=== PATIENT | female | born 1995 | race Caucasian/White ===

== ENCOUNTER 2020-07-20 15:40 | Outpatient (CLI) | payer OTHER, SELFPAY ==
[2020-07-20 16:20] VITALS: BMI 35.5
[2020-07-20 16:21] VITALS: TEMP 37.5
[2020-07-20 16:22] VITALS: BP 118/72; PULSE 87
[2020-07-20] MEDS: 0.9% Normal Saline Single 100 ML IV.SOLN. INTRA-UTER (18:55)
--- NOTE | 2020-07-20 19:03 | PCM.HP.OB ---
HPI - General General Date of Admission: 07/20/20 Chief Complaint: Ulloa ripening of the cervix. HPI Narrative VALERIO NUNEZ, is a 24 F who presents for Ulloa cervical ripening for elective induction of labor. She is a 1 para 0 who presents with EDC of 07/20/2020 at 40 weeks 0 days. [facility] Home Medications vit,[id number] [Prenatabs FA] 1 tab PO DAILY 07/20/20 [History Last Taken 07/20/20] Allergy/AdvReac Type Severity Reaction Status Date / Time No Known Allergies Allergy Verified 07/20/20 16:21 NST FHR Rate Baby A Baseline: 150 Variability:: Moderate Accelerations:: 15 x 15 Decelerations:: None NST Reactive:: Yes FHR Category:: Category I Uterine Activity:: Irregular contractions. I was present in the room for audible accelerations that were difficult to trace because the fetus was so active. ROS Constitutional Constitutional: Denies fatigue, fever(s) or malaise Eyes Eyes: Denies change in vision ENT HEENT: Denies dizziness or headache(s) Cardiovascular Cardiovascular: Denies chest pain, dyspnea or lightheadedness Respiratory/Chest Respiratory/Chest: Denies cough or dyspnea Gastrointestinal Gastrointestinal: Denies change in bowel habits Genitourinary Genitourinary: Denies burning urination or genital lesions Integumentary Integumentary: Denies rash Neurologic Neurologic: Denies confusion, dizziness, headache(s), numbness or weakness Vital Signs Vital Signs Vital Signs: 07/20/20 16:21 07/20/20 16:22 Temperature 99.5 F H Temperature Source Temporal Pulse Rate 87 Blood Pressure 118/72 BP Systolic 118 BP Diastolic 72 Physical Exam Const alert and no apparent distress General Appearance: cooperative HEENT normocephalic Resp normal respiratory effort Cardio regular rate GI soft to palpation GI Narrative: gravid, nontender, appropriate for gestational age Extremity no calf tenderness General Extremity: edema Skin no wounds Rashes: No rashes noted Psych activity/motor behavior normal Assessment & Plan (1) 40 weeks gestation of : (2) Supervision of normal intrauterine in primigravida: (3) Elective induction of labor planned: PLAN: Risk benefits and alternatives to elective induction of labor with Ulloa ripening as an outpatient were discussed with patient, questions were answered to her satisfaction she desires to proceed. Estimated weight is less than 4500 g clinically and pelvis clinically adequate to expect vaginal delivery. Will return in the morning or as needed for Pitocin and/or artificial rupture of membranes if needed for induction.
[2020-07-20 19:13] VITALS: TEMP 36.6
[2020-07-20 19:14] VITALS: BP 117/77; PULSE 76; O2SAT 97
== END 2020-07-20 20:20 | disposition home or self-care (01) ==
LOC: WPOUT 16:02 → WP 16:03
PROVIDERS: Referring Provider Obstetrics & Gynecology; Visit Provider Obstetrics & Gynecology
DX: Z34.03 Encounter for supervision of normal first pregnancy, third trimester (principal)
CPT/HCPCS: 59025; 59050; 99218; G0378

== ENCOUNTER 2020-07-21 06:40 | Inpatient (IN) | payer OTHER, SELFPAY ==
[2020-07-20 16:20] VITALS: BMI 35.5
[2020-07-21] VITALS (50 sets, daily range): BP systolic 90–186; BP diastolic 48–138; PULSE 65–107; TEMP 36.4–37.3; O2SAT 94–100; BMI 35.3
--- NOTE | 2020-07-21 07:19 | HP.PCM.OB_ITS ---
HPI - General General Date of Admission: 07/21/20 Chief Complaint: Induction of labor HPI Narrative 24-year-old 1 para 0 presents at 40 weeks 1 day for induction of labor. She has had some contractions since she left last night. She had a Ulloa catheter placed yesterday for cervical ripening. She denies any gross vaginal bleeding or leaking of fluid. PFSH Home Medications vit,[id number] [Prenatabs FA] 1 tab PO DAILY 07/20/20 [History Last Taken 07/20/20] Allergy/AdvReac Type Severity Reaction Status Date / Time No Known Allergies Allergy Verified 07/20/20 16:21 ROS Constitutional Constitutional: Denies fatigue, fever(s) or malaise Eyes Eyes: Denies change in vision ENT HEENT: Denies dizziness or headache(s) Cardiovascular Cardiovascular: Denies chest pain, dyspnea or lightheadedness Respiratory/Chest Respiratory/Chest: Denies cough or dyspnea Gastrointestinal Gastrointestinal: Denies change in bowel habits Genitourinary Genitourinary: Denies burning urination or genital lesions Integumentary Integumentary: Denies rash Neurologic Neurologic: Denies confusion, dizziness, headache(s), numbness or weakness Physical Exam Const alert and no apparent distress General Appearance: cooperative HEENT normocephalic Resp normal respiratory effort Cardio regular rate GI soft to palpation GI Narrative: gravid, nontender, appropriate for gestational age Extremity no calf tenderness General Extremity: edema Skin no wounds Rashes: No rashes noted Psych activity/motor behavior normal Assessment & Plan (1) Elective induction of labor planned: PLAN: Risks, benefits, and alternatives to induction labor him discussed w ith the patient, her questions were answered to her satisfaction and consent was signed. She desires to proceed. Plan Pitocin and artificial rupture membranes induction today. Had Ulloa catheter placed last night that came out at home. Estimated weight is less than 4500 g clinically and pelvis is clinically adequate to expect vaginal delivery. Routine pain control measures if needed. (2) Supervision of normal intrauterine in primigravida: (3) 40 weeks gestation of :
[2020-07-21 07:59] LABS: Absolute Lymphocyte Count 2.11 X10^3/uL (0.83-4.51); Absolute Neutrophil Count 12.1 X10^3/uL (2.0-7.7); Basophil# 0.04 X10^3/uL; Basophil% 0.3 % (0-1); Eosinophil# 0.01 X10^3/uL; Eosinophils% 0.1 % (0-5); Hematocrit 45.8 % (37-47); Hemoglobin 15.6 g/dL (12.0-15.0); Lymphocyte # 2.11 X10^3/ul (0.83-4.51); Lymphocyte % 13.8 % (19-41); Mean Corp Hgb Conc 34.1 g/dL (32-36); Mean Corpuscular Hgb 32.4 pg (27.0-32.0); Mean Corpuscular Volume 95.2 fL (81-99); Mean Platelet Vol. 10.8 fl (6.2-12.0); Monocyte# 0.93 X10^3/uL; Monocyte% 6.1 % (0-10); NRBC Flagged by Analyzer 0 % (0-5); Neutrophil # 12.09 X10^3/uL (2.7-7.7); Platelet Count 188 K/mm3 (150-450); RBC Distribution Width CV 13.1 % (11.6-14.6); RBC Distribution Width SD 46.5 fl (35.1-43.9); Red Blood Count 4.81 M/mm3 (4.2-5.4); White Blood Count 15.3 K/mm3 (4.4-11.0)
[2020-07-21] MEDS: Oxytocin 30 units/NS 500 ml 30 UNITS/500 ML IV.SOLN IV (08:00)
[2020-07-21] MEDS: Lactated Ringers 1,000 ML 50 ML IV (08:03)
[2020-07-21] MEDS: Lactated Ringers 500 ML 999 ML IV ×3 (09:38→15:06)
[2020-07-21] MEDS: fentaNYL-bupivacaine (epidural) 100 ML BAG EPIDURAL ×2 (10:24→15:07)
[2020-07-21] MEDS: Lactated Ringers 1,000 ML 200 ML IV (15:36)
[2020-07-21] MEDS: Oxytocin 30 units/NS 500 ml 30 UNITS/500 ML IV.SOLN 334 UNITS IV (17:54)
[2020-07-21] MEDS: Methylergonovine 0.2 MG/ML Ampul IM (18:04)
--- NOTE | 2020-07-21 18:19 | EX.PCM.OBRPT ---
Assessment & Plan (1) Vacuum extractor delivery, delivered: (2) Outcome of delivery, single liveborn: (3) Arrest of descent, delivered, current hospitalization: Maternal Data Information Final DONNELL: 07/23/20 Final DONNELL Source: LMP Gestational age: 40 2/7 weeks Vaginal Delivery Maternal Presentation Maternal Presentation: Elective Induction Type of Induction: Pitocin, Ulloa Bulb and Amniotomy Operative Information Date of Procedure: 07/21/20 Pre-Operative Diagnosis: labor, arrest of descent Post-Operative Diagnosis: same Surgery / Procedure Performed: Vacuum Assisted Vaginal Delivery (low) Type of Anesthesia: Epidural Special Medications: none Drain: Ulloa to straight drain Estimated Blood Loss: 500 Findings Description of Procedure: I arrived to assess the patient. She been complete for over 4 hours, pushing for over 3 hours. Position was ROT, the vertex was on the pelvic floor. There is moderate caput. Ulloa was in place. Epidural was adequate. I discussed with patient risk benefits and alternatives of various options. They elected for trial of vacuum-assisted delivery. The vacuum was placed on the flexion point. I pulled with 1 contraction and the head restituted to GAGAN. It began to crown. The vacuum was removed with no pop offs. The pressure had been 550 mmHg. With maternal pushing efforts only, a vigorous [female] infant was delivered [GAGAN] over a first-degree vaginal laceration. The remainder the infant was delivered with maternal pushing and gentle traction only in less than 15 seconds. The Pitocin infusion was initiated for active management of the third stage. The cord was clamped and cut [after 1 minute]. The infant was attended to by the waiting nursing staff. The placenta was delivered spontaneously and intact. The cervix and vagina were intact. Vaginal laceration was repaired with 3-0 Vicryl Rapide suture in a running standard fashion was hemostatic. Sponge and needle counts were correct. A vaginal sweep was completed by me. Delivery time 1748 Presentation: GAGAN Amniotic Fluid Description: Lightly stained meconium Placental Delivery Description: Spontaneous Placenta Disposition: [facility] Cord Vessel Description: 3 Vessels Cord Entanglement: None Cord Gases: VBG (unable to get ABG b/c of very short, thin cord) Infant A Gender: Female (gema) (1 minute): 9 (5 minute): 9 Delayed Cord Clamping: Yes Post Vaginal Delivery Medications Given After Delivery: IV Pitocin and IM Methergin (x1 to prevent methergine) Episiotomy Description: None Laceration: 1st degree (vaginal) Complication Complications: None
[2020-07-21] MEDS: Ibuprofen 600 MG Tablet PO (19:08)
--- NOTE | 2020-07-21 22:40 | NURSING ---
report received from antionette GTZ. this RN to assume care of pt at this time.
[2020-07-22 00:22] VITALS: BP 107/58; PULSE 88; RESP 14; TEMP 36.4
[2020-07-22 04:45] VITALS: BP 98/59; PULSE 82; RESP 14; TEMP 36.2
[2020-07-22 05:08] LABS: Hematocrit 42.1 % (37-47); Hemoglobin 14.3 g/dL (12.0-15.0); Mean Corpuscular Hgb 32.4 pg (27.0-32.0); Mean Corpuscular Volume 95.5 fL (81-99); Mean Platelet Vol. 10.1 fl (6.2-12.0); Platelet Count 149 K/mm3 (150-450); RBC Distribution Width SD 45.5 fl (35.1-43.9); Red Blood Count 4.41 M/mm3 (4.2-5.4)
--- NOTE | 2020-07-22 08:31 | PCM.PN.BLA ---
Progress Note Pain well controlled. Average lochia. Physical Exam Const alert and no apparent distress Narrative: Fundus firm, below umbilicus. Vulva w signif edema but improved. Assessment & Plan Assessment/Plan (1) Vacuum extractor delivery, delivered: PLAN: day #1 status post vacuum-assisted vaginal delivery. Vulvar edema is improving. Leave Ulloa catheter in until noon and then will do a voiding trial. is bottlefeeding and doing well. Likely discharge home tomorrow. (2) Outcome of delivery, single liveborn:
[2020-07-22] MEDS: Ibuprofen 600 MG Tablet PO (09:20)
[2020-07-22 09:30] VITALS: BP 115/67; PULSE 92; RESP 16; TEMP 36.3
[2020-07-22 12:00] VITALS: BP 110/64; PULSE 103; RESP 16; TEMP 36.5
[2020-07-22] MEDS: Acetaminophen 500 MG Tablet 1000 MG PO (15:10)
[2020-07-22 16:23] VITALS: BP 106/67; PULSE 85; RESP 16; TEMP 36; O2SAT 98
[2020-07-22 21:28] VITALS: BP 108/59; PULSE 78; RESP 16; TEMP 36.1; O2SAT 95
[2020-07-22] MEDS: Senna/Docusate Sodium 1 Tablet PO (21:35)
[2020-07-23] MEDS: Ibuprofen 600 MG Tablet PO (02:30)
[2020-07-23 02:31] VITALS: BP 109/72; PULSE 82; RESP 18; TEMP 36.4; O2SAT 95
--- NOTE | 2020-07-23 08:01 | PCM.PN.BLA ---
Progress Note Pain well controlled. Average lochia. No complaints today. Physical Exam Const alert and no apparent distress Narrative: Fundus firm, below umbilicus. Assessment & Plan Assessment/Plan (1) Vacuum extractor delivery, delivered: PLAN: day #2 status post vacuum-assisted vaginal delivery. Patient are doing well. is bottlefeeding. Ready for discharge home today. Routine instructions and follow-up. (2) Outcome of delivery, single liveborn:
--- NOTE | 2020-07-23 08:03 | DS.PCM_ITS ---
Providers Date of Admission: 07/21/20 Date of Discharge: 07/23/20 Primary Care Physician: Dania Primary Care Phys Reason For Visit: VAGINAL DELIVERY Diagnosis Discharge Diagnosis (1) Vacuum extractor delivery, delivered: Status: Acute Code(s): O66.5 - Attempted application of vacuum extractor and forceps (2) Outcome of delivery, single liveborn: Status: Acute Code(s): Z37.0 - Single live Medications at Discharge Home Medications vit,[id number] [Prenatabs FA] 1 tab PO DAILY 07/20/20 Hospital Course Summary of Care Provided Hospital Course: Patient arrived to labor and delivery on 07/19/2020 for outpatient Ulloa ripening. The Ulloa was placed. Patient was discharged home. She arrived on the morning of 07/20/2020 for Pitocin and AROM induction. Labor progressed to complete and pushing where she had arrest of descent. A vacuum extraction was performed on 07/21/2020. course was unremarkable. By day #2, the patient was ready for discharge with routine instructio ns. The was bottlefeeding and doing well. ABG / Lab / Microbiology Data Result Diagrams: 07/22/20 04:55 D/C Instructions Discharge Diet: No restrictions Discharge Activity: May not drive while taking narcotic pain medications., May Shower and May Take a Tub Bath (in 4-6 weeks) May resume sexual activity in: 6 weeks Call your doctor if your incision/area has: Continuous Slow Oozing, Sudden Increased Bleeding, Foul Smelling Discharge and Swelling at the incision site Call your doctor if you observe: Fever of 101 or Higher and Inability to urinate Please Follow Up With: Yessenia Ware MD When: Follow up with our office in 1-2 and 6 weeks or as needed. [phone] Meaningful Use Info Meaningful Use Diagnoses (Choose all that apply): None applicable Discharge Plan Admission Admit Date/Time: 07/21/20 06:40 Primary Reason for Your Visit: Vacuum-assisted vaginal delivery Attending Provider: Yessenia Ware Primary Care Provider: Christopher Moore,Dania Primary Discharge Orders/Prescriptions Prescriptions: No Action Prenatabs FA 29-1 mg Tablet 1 tab PO DAILY RF: 0 Referrals / Follow Up: Care Physician,No Primary [Primary Care Provider] - Disposition Disposition (needs filled in before D/C Order can be placed): Home, self care
[2020-07-23 08:45] VITALS: BP 110/76; PULSE 78; RESP 16; TEMP 36.6; O2SAT 97
[2020-07-23] MEDS: Senna/Docusate Sodium 1 Tablet PO (11:11)
== END 2020-07-23 11:46 | disposition home or self-care (01) | DRG 807 ==
PROVIDERS: Admitting Provider Obstetrics & Gynecology; Visit Provider Obstetrics & Gynecology
DX: O62.1 Secondary uterine inertia (principal); Z37.0 Single live birth; Z3A.40 40 weeks gestation of pregnancy; O70.0 First degree perineal laceration during delivery; O77.0 Labor and delivery complicated by meconium in amniotic fluid
CPT/HCPCS: 59025; 59050; 85025; 85027; 86850; 86900; 86901; 99218; J7120; G0378

== ENCOUNTER 2024-10-21 07:37 | Inpatient (IN) | payer OTHER, SELFPAY ==
[2024-10-21] VITALS (75 sets, daily range): BP systolic 93–144; BP diastolic 58–99; PULSE 68–118; RESP 16–17; TEMP 36.4–36.9; O2SAT 94–99; BMI 1200.0; BMI 20250815.0; BMI 42.9; BMI 1950.0
--- OUTSIDE RECORDS SUMMARY | 2024-10-21 07:23 | XMS RPT_ITS | CCD ---
Author Organization [facility] Care Team Providers Care Sas Administrator Name Role Phone DUSTIN BASSETT Unavailable Unavailable REFERRED, SELF Unavailable Unavailable DUSTIN BASSETT Unavailable Unavailable Tizzano, Abad P Unavailable Unavailable Sophia, Christy L Unavailable Unavailable Tizzano, Abad P Unavailable Unavailable Sophia, Christy L Unavailable Unavailable Sophia, Christy L Unavailable Unavailable Sophia, Christy L Unavailable Unavailable Tizzano, Abad P Unavailable Unavailable Sophia, Christy L Unavailable Unavailable Tizzano, Abad P Unavailable Unavailable Sophia, Christy L Unavailable Unavailable Tizzano, Abad P Unavailable Unavailable Tizzano, Abad P Unavailable Unavailable Sophia, Christy L Unavailable Unavailable Frank Marinelli DO Primary Care Provider Frank Marinelli DO Primary Care Provider Frank Marinelli DO Primary Care Provider Frank Marinelli DO Primary Care Provider Farah AGRI BUSINESS AGENT.Fabi POWELL Unavailable Jolene AGRI BUSINESS AGENT.Rosana POWELL Unavailable Farah AGRI BUSINESS AGENT.Faib POWELL Unavailable Dolly AGRI BUSINESS AGENT.Leny POWELL Unavailable FRANK MARINELLI Primary Care Unavailable VALENTINA DEL ROSARIO Attending Unavailable MAX AGUSTIN Attending Unavailable FRANK MARINELLI Primary Care Unavailable SELF Referring Unavailable MAX AGUSTIN Referring Unavailable FRANK MARINELLI Primary Care Unavailable FRANK MARINELLI Primary Care Unavailable LEONIE PONCE Attending Unavail able MARINELLI, FRANK L Primary Care Unavailable MARINELLI, FRANK L Primary Care Unavailable YUMIKO CARVER Attending Unavailable MARINELLI, FRANK L Primary Care Unavailable LISET CASTAÑEDA Attending Unavailable MARINELLI, FRANK L Primary Care Unavailable PLOTTS, KELSI Referring Unavailable MARINELLI, FRANK L Primary Care Unavailable PLOTTS, KELSI Referring Unavailable BRANDAN PUGA Attending Unavailable MARINELLI, FRANK L Primary Care Unavailable PLOTTS, KELSI Referring Unavailable MARINELLI, FRANK L Primary Care Unavailable PLOTTS, KELSI Attending Unavailable MARINELLI, FRANK L Primary Care Unavailable PLOTTS, KELSI Referring Unavailable MARINELLI, FRANK L Primary Care Unavailable PLOTTS, KELSI Attending Unavailable PLOTTS, KELSI Referring Unavailable MARINELLI, FRANK L Primary Care Unavailable MARINELLI, FRANK L Primary Care Unavailable LISET CASTAÑEDA Attending Unavailable MARINELLI, FRANK L Primary Care Unavailable PLOTTS, KELSI Attending Unavailable MARINELLI, FRANK L Primary Care Unavailable BRANDAN PUGA Attending Unavailable MARINELLI, FRANK L Primary Care Unavailable MARINELLI, FRANK L Primary Care Unavailable PLOTCARMINA, KELSI Attending Unavailable MARINELLI, FRANK L Primary Care Unavailable SELF Referring Unavailable LISET CASTAÑEDA Attending Unavailable LEONIE PONCE Attending Unavail able MARINELLI, FRANK L Primary Care Unavailable MAX AGUSTIN Referring Unavailable MARINELLI, FRANK L Primary Care Unavailable MARINELLI, FRANK L Primary Care Unavailable LISET CASTAÑEDA Attending Unavailable MARINELLI, FRANK L Primary Care Unavailable MARINELLI, FRANK L Primary Care Unavailable PLOTTS, KELSI Referring Unavailable Medications Current Medications Medication Drug Class(es) Dates Sig (Normalized) Sig (Original) amoxicillin 875 mg / clavulanate 125 mg oral tablet (2 sources) Penicillin-class Antibacterial Start: 02-06-2023 End: 02-16-2023 take 1 tablet by mouth twice daily amoxicillin-clav ulanate potassium (AUGMENTIN) 875-125 mg per tablet Indications: Bacterial sinusitis Take 1 tablet by mouth two times a day for 10 days. 20 tablet 0 02/06/2023 02/16/2023 Active Comment on above: Take 1 tablet by silvia th two times a day for 10 days. aspirin 81 mg delayed release oral tablet (20 sources) Platelet Aggregation Inhibitor, Nonsteroidal Anti-inflammatory Drug Start: 03-18-2024 take 1 tablet by mouth once daily aspirin, enteric coated (ECOTRIN LOW STRENGTH) 81 mg EC tablet Indications: with uncertain dates in first trimester (HCC) Take 1 tablet by mouth once daily. 90 tablet 3 03/18/2024 Active cetirizine hydrochloride 10 mg oral tablet (1 source) Histamine-1 Receptor Antagonist Start: 12-31-2023 End: 01-30-2024 take 1 tablet by mouth once daily cetirizine (ZYRTEC) 10 mg tablet Take 1 tablet by mouth once daily. 30 tablet 12/31/2023 01/30/2024 Active FLUoxetine 10 mg oral tablet (19 sources) Serotonin Reuptake Inhibitor Start: 09-08-2022 End: 12-07-2022 take 1 tablet by mouth once daily FLUoxetine 10 mg tablet Take 1 tablet by mouth once daily. 90 tablet 1 09/08/2022 12/07/2022 Active Start: 05-23-2022 End: 09-08-2022 take 0.5 tablet by mouth once daily in the morning, then take 1 tablet by mouth once daily in the morning FLUOXETINE 10 mg tablet TAKE ONE-HALF TABLET BY MOUTH ONCE DAILY IN THE MORNING FOR 4 DAYS, THEN INCREASE TO ONE TABLET DAILY IN THE MORNING 90 tablet 0 05/23/2022 09/08/2022 Discontinued Start: 12-09-2021 End: 05-23-2022 take 1 tablet by mouth once daily, then take 0.5 tablet by mouth once daily in the morning, then take 1 tablet by mouth once daily in the morning FLUoxetine 10 mg tablet Take 1 tablet by mouth once daily. Take 0.5 tablet once a day in AM x 4 days then increase to 1 tablet PO daily in AM 90 tablet 1 12/09/2021 05/23/2022 Discontinued Start: 06-04-2021 End: 12-07-2021 take 1 tablet by mouth once daily, then take 0.5 tablet by mouth once daily in the morning, then take 1 tablet by mouth once daily in the morning FLUoxetine 10 mg tablet Take 1 tablet by mouth once daily. Take 0.5 tablet once a day in AM x 4 days then increase to 1 tablet PO daily in AM 90 tablet 1 06/04/2021 12/07/2021 Discontinued Comment on above: Take 1 tablet by silvia th once daily. Take 0.5 tablet once a day in AM x 4 days then increase to 1 tablet PO daily in AM TAKE ONE-HALF TABLET BY MOUTH ONCE DAILY IN THE MORNING FOR 4 DAYS, THEN INCREASE TO ONE TABLET DAILY IN THE MORNING Take 1 tablet by silvia th once daily. methylPREDNISolone (1 source) Corticosteroid Start: 2023 End: 2023 methylPREDNISolone (MEDROL, MELANIE,) 4 mg Dose-Pack Follow dosing instructions, take with food. 21 tablet 12/31/2023 01/06/2024 Active phentermine hydrochloride 37.5 mg oral tablet (7 sources) Sympathomimetic Amine Anorectic Start: 2022 End: 2023 take 1 tablet by mouth once daily Phentermine HCl (ADIPEX-P) 37.5 mg tablet Indications: Obesity, Class II, BMI 35-39.9 Take 1 tablet by mouth once daily for 90 days. 30 tablet 2 07/03/2023 10/01/2023 Active Comment on above: Take 1 tablet by silvia th once daily for 90 days. Nybttexp-Pw-Oaj-Fe-FA tab (20 sources) Start: 2024 take 1 tablet by mouth once daily Ghdktgeq-Us-Mla-Fe-FA tab Take 1 tablet by mouth once daily. 90 tablet 3 03/18/2024 Active Completed/Discontinued Medications Medication Drug Class(es) Dates Sig (Normalized) Sig (Original) cholecalciferol 0.125 mg oral capsule (20 sources) Vitamin D Start: 06-12-2021 End: 03-18-2024 take 1 capsule by mouth once daily Cholecalciferol, Vitamin D3, 125 mcg (5,000 unit) cap Take 1 capsule by mouth once daily 180 capsule 05/23/2022 03/18/2024 Discontinued Comment on above: Take 1 capsule by mo [facility] once daily. Take 1 capsule by mo [facility] once daily Ethinyl Estradiol / Norethindrone (20 sources) Estrogen Start: 10-19-2023 End: 03-18-2024 take 1 tablet by mouth once daily, then take 1 tablet by mouth once daily Norethindrone Acet-Ethinyl Est (MICROGESTIN 03/28) 1-20 mg-mcg per tablet Indications: PCOS (polycystic ovarian syndrome) Take 1 tablet by mouth once daily. Take one active pill daily x 3 months 63 tablet 5 10/19/2023 03/18/2024 Discontinued Start: 10-19-2023 End: 10-18-2024 take 1 tablet by mouth once daily, then take 1 tablet by mouth once daily Norethindrone Acet-Ethinyl Est (MICROGESTIN 1/20) 1-20 mg-mcg per tablet Indications: PCOS (polycystic ovarian syndrome) Take 1 tablet by mouth once daily. Take one active pill daily x 3 months 63 tablet 5 10/19/2023 10/18/2024 Active Start: 10-13-2022 End: 10-19-2023 take 0.05 ug by mouth once Norethindrone Acet-Ethinyl Est (MICROGESTIN 1/20) 1-20 mg-mcg per tablet Indications: PCOS (polycystic ovarian syndrome) Take 1 tablet by mouth once daily. 21 tablet 11 10/13/2022 10/19/2023 Discontinued Start: 10-13-2022 take 0.05 ug by mouth once Nor ethindrone Acet-Ethinyl Est (MICROGESTIN 1/20) 1-20 mg-mcg per tablet Indications: PCOS (polycystic ovarian syndrome) Take 1 tablet by mouth once daily. 21 tablet 11 10/13/2022 Active Start: 10-11-2021 End: 10-13-2022 take 0.05 ug by mouth once Norethindrone Acet-Ethinyl Est (MICROGESTIN 1/20) 1-20 mg-mcg per tablet Indications: PCOS (polycystic ovarian syndrome) Take 1 tablet by mouth once daily. 21 tablet 11 10/11/2021 10/13/2022 Discontinued Start: 10-11-2021 take 0.05 ug by mouth once Nor ethindrone Acet-Ethinyl Est (MICROGESTIN 1/20) 1-20 mg-mcg per tablet Indications: PCOS (polycystic ovarian syndrome) Take 1 tablet by mouth once daily. 21 tablet 11 10/11/2021 Active Start: 10-09-2021 End: 10-11-2021 take 1 tablet by mouth once daily MICROGESTIN 1/20 1-20 mg-mcg per tablet Indications: PCOS (polycystic ovarian syndrome) Take 1 tablet by mouth once daily 21 tablet 3 10/09/2021 10/11/2021 Discontinued Start: 10-09-2021 take 1 tablet by silvia once daily MICROGESTIN 1/20 1-20 mg-mcg per tablet Indications: PCOS (polycystic ovarian syndrome) Take 1 tablet by mouth once daily 21 tablet 3 10/09/2021 Active Start: 08-14-2021 End: 10-09-2021 take 1 tablet by mouth once daily MICROGESTIN 1/20 1-20 mg-mcg per tablet Indications: PCOS (polycystic ovarian syndrome) Take 1 tablet by mouth once daily 21 tablet 1 08/14/2021 10/09/2021 Discontinued Start: 08-14-2021 take 1 tablet by silvia th once daily MICROGESTIN 1/20 1-20 mg-mcg per tablet Indications: PCOS (polycystic ovarian syndrome) Take 1 tablet by mouth once daily 21 tablet 1 08/14/2021 Active Start: 09-04-2020 End: 08-14-2021 take 0.05 ug by mouth once Norethindrone Acet-Ethinyl Est (MICROGESTIN 1/20) 1-20 mg-mcg per tablet Indications: PCOS (polycystic ovarian syndrome) Take 1 tablet by mouth once daily. 1 Package 11 09/04/2020 08/14/2021 Discontinued Start: 09-04-2020 take 0.05 ug by mouth once Nor ethindrone Acet-Ethinyl Est (MICROGESTIN 1/20) 1-20 mg-mcg per tablet Indications: PCOS (polycystic ovarian syndrome) Take 1 tablet by mouth once daily. 1 Package 11 09/04/2020 Active Comment on above: Take 1 tablet by silvia th once daily. Take 1 tablet by silvia th once daily PRENATE MINI, FERR ASP GLYCIN, 18-1-350 mg cap (15 sources) Start: 01-01-2021 End: 10-13-2022 take 1 capsule by mouth once daily PRENATE MINI, FERR ASP GLYCIN, 18-1-350 mg cap Take 1 capsule by mouth once daily 30 capsule 5 01/01/2021 10/13/2022 Discontinued Start: 01-01-2021 take 1 capsule by mo uth once daily PRENATE MINI, FERR ASP GLYCIN, 18-1-350 mg cap Take 1 capsule by mouth once daily 30 capsule 5 01/01/2021 Active Comment on above: Take 1 capsule by mo uth once daily Problems Active Problems Problem Classification Problem Date Documented Da te Episodic/Chronic Allergic reactions (1 source) Contact dermatitis; Translations: [Unspecified contact dermatitis, unspecified cause] 12-31-2023 Episodic Anxiety disorders (1 source) Feeling irritable; Translations: [Irritability and anger] Episodic Diabetes mellitus without complication (16 sources) Increased glucose level; Translations: [Other abnormal glucose] Onset: 08-12-2024 08-12-2024 Episodic Immunizations and screening for infectious disease (2 sources) Vaccination needed; Translations: [Encounter for immunization] Onset: 08-12-2024 08-12-2024 Episodic Nutritional deficiencies (20 sources) Vitamin D deficiency; Translations: [Vitamin D deficiency, unspecified] Onset: 07-05-2021 07-05-2021 Chronic Other complications of (20 sources) Maternal obesity complicating , childbirth and the puerperium, antepartum; Translations: [Obesity complicating , first trimester] Onset: 03-18-2024 03-18-2024 Chronic Other complications of (1 source) Obesity complicating , third trimester; Translations: [Other obesity affecting in third trimester (HCC)] Onset: 09-16-2024 Chronic Other complications of (1 source) Obesity complicating , second trimester; Translations: [Obesity affecting in second trimester, unspecified obesity type (HCC)] Onset: 06-17-2024 Chronic Other complications of (16 sources) High risk ; Translations: [Supervision of high risk , unspecified, first trimester] Onset: 03-18-2024 03-18-2024 Episodic Other complications of (4 sources) Excessive growth affecting management of mother; Translations: [Maternal care for excessive growth, third trimester, not applicable or unspecified] Onset: 10-07-2024 10-07-2024 Episodic Other complications of (1 source) Maternal care for excessive growth, third trimester, not applicable or unspecified; Translations: [Excessive growth affecting management of in third trimester, single or unspecified fetus (HCC)] Onset: 10-07-2024 Episodic Other complications of (1 source) Supervision of high risk , unspecified, third trimester; Translations: [Supervision of high risk in third trimester (HCC)] Onset: 09-16-2024 Episodic Other complications of (1 source) Supervision of high risk , unspecified, second trimester; Translations: [Supervision of high risk in second trimester (HCC)] Onset: 07-18-2024 Episodic Other endocrine disorders (6 sources) Polycystic ovary syndrome; Translations: [Polycystic ovarian syndrome] Chronic Other liver diseases (1 source) Increased vitamin B; Translations: [Abnormal levels of other serum enzymes] 11-24-2022 Episodic Other nutritional; endocrine; and metabolic disorders (3 sources) Obese class II; Translations: [Obesity, unspecified] 02-11-2023 Chronic Other screening for suspected conditions (not mental disorders or infectious disease) (9 sources) Patient encounter status; Translations: [Encounter for screening for lipoid disorders] Onset: 06-17-2024 Episodic Other skin disorders (1 source) Night sweats; Translations: [Generalized hyperhidrosis] Episodic Other skin disorders (1 source) Loss of hair; Translations: [Nonscarring hair loss, unspecified] Episodic Other skin disorders (1 source) Pigmented skin lesion ; Translations: [Disorder of pigmentation, unspecified] Episodic Other skin disorders (1 source) Eruption; Translations: [Rash and other nonspecific skin eruption] 12-31-2023 Episodic Other upper respiratory infections (1 source) Bacterial sinusitis; Translations: [Chronic sinusitis, unspecified] 02-06-2023 Chronic Polyhydramnios and other problems of amniotic cavity (17 sources) Polyhydramnios; Translations: [Polyhydramnios, unspecified trimester, not applicable or unspecified] Onset: 09-02-2024 09-02-2024 Episodic Residual codes; unclassified (1 source) Flushing; Translations: [Flushing] Episodic Residual codes; unclassified (1 source) Gestation period, 8 weeks; Translations: [8 weeks gestation of ] 03-18-2024 Episodic Residual codes; unclassified (1 source) Gestation period, 12 weeks; Translations: [12 weeks gestation of ] 04-19-2024 Episodic Residual codes; unclassified (1 source) Gestation period, 16 weeks; Translations: [16 weeks gestation of ] 05-13-2024 Episodic Residual codes; unclassified (2 sources) Gestation period, 21 weeks; Translations: [21 weeks gestation of ] 06-17-2024 Episodic Residual codes; unclassified (1 source) Gestation period, 25 weeks; Translations: [25 weeks gestation of ] 07-18-2024 Episodic Residual codes; unclassified (1 source) Gestation period, 29 weeks; Translations: [29 weeks gestation of ] 08-12-2024 Episodic Residual codes; unclassified (1 source) Gestation period, 31 weeks; Translations: [31 weeks gestation of ] 08-26-2024 Episodic Residual codes; unclassified (2 sources) Gestation period, 32 weeks; Translations: [32 weeks gestation of ] 09-02-2024 Episodic Residual codes; unclassified (1 source) Gestation period, 34 weeks; Translations: [34 weeks gestation of ] 09-16-2024 Episodic Residual codes; unclassified (1 source) Gestation period, 35 weeks; Translations: [35 weeks gestation of ] 09-23-2024 Episodic Residual codes; unclassified (1 source) Gestation period, 36 weeks; Translations: [36 weeks gestation of ] 09-30-2024 Episodic Residual codes; unclassified (1 source) Gestation period, 37 weeks; Translations: [37 weeks gestation of ] 10-07-2024 Episodic Residual codes; unclassified (1 source) 37 weeks gestation of ; Translations: [37 weeks gestation of (HCC)] Onset: 10-07-2024 Episodic Residual codes; unclassified (1 source) 36 weeks gestation of ; Translations: [36 weeks gestation of (HCC)] Onset: 09-30-2024 Episodic Residual codes; unclassified (1 source) 35 weeks gestation of ; Translations: [35 weeks gestation of (HCC)] Onset: 09-23-2024 Episodic Residual codes; unclassified (1 source) 34 weeks gestation of ; Translations: [34 weeks gestation of (HCC)] Onset: 09-16-2024 Episodic Residual codes; unclassified (1 source) 32 weeks gestation of ; Translations: [32 weeks gestation of (HCC)] Onset: 09-02-2024 Episodic Residual codes; unclassified (1 source) 31 weeks gestation of ; Translations: [31 weeks gestation of (HCC)] Onset: 08-26-2024 Episodic Residual codes; unclassified (1 source) 29 weeks gestation of ; Translations: [29 weeks gestation of (HCC)] Onset: 08-12-2024 Episodic Residual codes; unclassified (1 source) 25 weeks gestation of ; Translations: [25 weeks gestation of (HCC)] Onset: 07-18-2024 Episodic Residual codes; unclassified (1 source) Gestation period, 38 weeks; Translations: [38 weeks gestation of ] 10-19-2024 Episodic Unclassified (20 sources) [facility] - COMMON Onset: 03-18-2024 03-18-2024 Unclassified (20 sources) Education - [place] Onset: 03-18-2024 03-18-2024 Unclassified (1 source) H/O: previous delivery by vacuum extraction 08-12-2024 Unclassified (1 source) Other obesity affecting in third trimester ([facility]); Translations: [Other obesity affecting in third trimester ([facility])] Onset: 09-16-2024 Past or Other Problems Problem Classification Problem Date Documented Da te Episodic/Chronic Malaise and fatigue (20 sources) Fatigue; Translations: [Other fatigue] Onset: 07-05-2021 Episodic Miscellaneous mental health disorders (20 sources) Depressed mood; Translations: [Other symptoms and signs involving emotional state] Onset: 07-05-2021 Episodic Other complications of (20 sources) on oral contraceptive; Translations: [Supervision of other high risk pregnancies, unspecified trimester] Onset: 11-10-2019 Resolved: 08-01-2020 08-01-2020 Episodic Other complications of (20 sources) Vomiting of , unspecified; Translations: [Unspecified vomiting of , unspecified as to episode of care or not applicable] Onset: 03-18-2024 Resolved: 07-18-2024 03-18-2024 Episodic Other injuries and conditions due to external causes (20 sources) H/O: fracture; Translations: [Personal history of (healed) traumatic fracture] Onset: 11-10-2019 12-14-2019 Episodic Other and delivery including normal (20 sources) with uncertain dates; Translations: [Encounter for supervision of normal , unspecified, first trimester] Onset: 03-18-2024 Resolved: 08-12-2024 03-18-2024 Episodic Phlebitis; thrombophlebitis and thromboembolism (20 sources) H/O: thrombosis; Translations: [Personal history of other venous thrombosis and embolism] Onset: 11-10-2019 12-08-2019 Episodic Pulmonary heart disease (20 sources) H/O: pulmonary embolus; Translations: [Personal history of pulmonary embolism] Onset: 03-18-2024 03-18-2024 Episodic Residual codes; unclassified (20 sources) H/O: previous delivery by vacuum extraction; Translations: [Personal history of other complications of , childbirth and the puerperium] Onset: 03-18-2024 03-18-2024 Episodic Residual codes; unclassified (1 source) Personal history of other complications of , childbirth and the puerperium; Translations: [History of vacuum extraction assisted delivery] Onset: 03-18-2024 Episodic Residual codes; unclassified (1 source) 21 weeks gestation of ; Translations: [21 weeks gestation of (HCC)] Onset: 06-17-2024 Episodic Results Test Name Value Interpretation Reference Range Facil ity URINE OB DIP B/Oon 5 Glucose Ql (U) 1000 mg/dL Neg [facility] Protein.monoclonal (U) [Mass/Vol] Negative Neg mg/dL [facility] URINE OB DIP B/Oon 5 Glucose Ql (U) Negative Neg mg/dL [facility] Interpretation and review of laboratory results Normal [facility] Protein.monoclonal (U) [Mass/Vol] Negative Neg mg/dL [facility] Examination level ultrasound on 09-30-2024 [facility] Radiology Study observation (narrative) [facility] ROUTINE, GROUP B ST REPTOCOCCUS BY PCRon 09-30-2024 ROUTINE, GROUP B STREPTOCOCCUS BY PCR Not detected Normal [facility] [place] Comment on above: Performed By: #### G BPCR ####[facility] LABCLIA [id number] [place] [address] [place] URINE OB DIP B/Oon 5 Glucose Ql (U) 250 mg/dL Neg [facility] Interpretation and review of laboratory results Normal [facility] Protein.monoclonal (U) [Mass/Vol] Negative Neg mg/dL [facility] URINE OB DIP B/Oon 5 Glucose Ql (U) Negative Neg mg/dL [facility] Interpretation and review of laboratory results Normal [facility] Protein.monoclonal (U) [Mass/Vol] Negative Neg mg/dL [facility] Examination level ultrasound on 09-02-2024 [facility] Radiology Study observation (narrative) [facility] GLUCOSE GESTATIONAL, 1 HOURo n 08-13-2024 Glucose 1 Hr post Unsp challenge [Mass/Vol] 136 mg/dL Normal 74-179 [facility] [place] Comment on above: Order Comment: Speci kristel Type: BLOOD SPECIMENOrdering Facility: [facility] Address: [address] [place] [address] Result Comment: [facility] Congress of Obstetricians and Gynecologists ([place]) guidelines state gestational diabetes mellitus is present when 2 or more of the plasma glucose concentrations meet or exceed the following levels: fastin mg/dl, 1 hr: 180 mg/dl, 2 hr: 155 mg/dl, and 3 hr: 140 mg/dl. Performed By: #### G TGST1 ####[facility] LABCLIA [id number] [address] STATES OF [facility] GLUCOSE GESTATIONAL, 2 HOURo n 08-13-2024 Glucose 2 Hr post Unsp challenge [Mass/Vol] 128 mg/dL Normal 74-154 [facility] [place] Comment on above: Order Comment: Ijeoma humphries Type: BLOOD SPECIMENOrdering Facility: [facility] Address: [address] [place] [address] Result Comment: [facility] Congress of Obstetricians and Gynecologists ([place]) guidelines state gestational diabetes mellitus is present when 2 or more of the plasma glucose concentrations meet or exceed the following levels: fastin mg/dl, 1 hr: 180 mg/dl, 2 hr: 155 mg/dl, and 3 hr: 140 mg/dl. Performed By: #### G TGST2 ####[facility] LABCLIA [id number] [address] [place] GLUCOSE GESTATIONAL, 3 HOURo n 08-13-2024 Glucose 3 Hr post Unsp challenge [Mass/Vol] 126 mg/dL Normal 74-139 [facility] [place] Comment on above: Order Comment: Ijeoma humphries Type: BLOOD SPECIMENOrdering Facility: [facility] Address: [facility] [place] [address] Result Comment: [facility] Congress of Obstetricians and Gynecologists ([place]) guidelines state gestational diabetes mellitus is present when 2 or more of the plasma glucose concentrations meet or exceed the following levels: fastin mg/dl, 1 hr: 180 mg/dl, 2 hr: 155 mg/dl, and 3 hr: 140 mg/dl. Performed By: #### G TGST3 ####[facility] [id number] [place] [address] [place] GLUCOSE GESTATIONAL, FASTING on 08-13-2024 Glucose post fast [Mass/Vol] 78 mg/dL Normal 74-94 [facility] [place] Comment on above: Order Comment: Speci men Type: BLOOD SPECIMENOrdering Facility: [facility] Address: [address] [place] [address] Result Comment: [facility] Congress of Obstetricians and Gynecologists (Lowry/Coustan) guidelines state gestational diabetes mellitus is present when 2 or more of the plasma glucose concentrations meet or exceed the following levels: fastin mg/dl, 1 hr: 180 mg/dl, 2 hr: 155 mg/dl, and 3 hr: 140 mg/dl. Performed By: #### G TGSTF ####[facility] LABIA [id number] [place] [address] [place] CBC W Auto Differential pane l (Bld)on 08-12-2024 Basophils (Bld) [#/Vol] 0.03 10*3/uL Normal <0.11 [facility] Comment on above: Order Comment: Speci men Type: BLOOD SPECIMENOrdering Facility: [facility] Address: [address] [place] [address] Performed By: #### 5 7021-8 ####[facility]PITALALBERTO [id number] [place] [address] [place] Basophils/100 WBC (Bld) 0.3 % Normal [facility] Comment on above: Order Comment: Speci men Type: BLOOD SPECIMENOrdering Facility: [facility] Address: [address] [place] [address] Performed By: #### 5 7021-8 ####[facility] PANWBARBARALIA [id number] [place] [address] [place] Differential cell count method Nom (Bld) Auto Normal [facility] Comment on above: Order Comment: Speci men Type: BLOOD SPECIMENOrdering Facility: [facility] Address: [address] [place] [address] Performed By: #### 5 7021-8 ####[facility] LAMASGIANCARLOLIA [id number] [place] [address] [place] Eosinophils (Bld) [#/Vol] 0.10 10*3/uL Normal <0.46 [facility] Comment on above: Order Comment: Speci men Type: BLOOD SPECIMENOrdering Facility: [facility] Address: [address] [place] [address] Performed By: #### 5 7021-8 ####[facility]MANWBARBARALIA [id number] [place] [address] [place] Eosinophils/100 WBC (Bld) 0.9 % Normal [facility] Comment on above: Order Comment: Speci men Type: BLOOD SPECIMENOrdering Facility: [facility] Address: [address] [place] [address] Performed By: #### 5 7021-8 ####[facility] ALMASTOWNCLIA [id number] [place] [address] [place] Erythrocyte distribution width (RBC) [Ratio] 14.0 % Normal 11.5-15.0 [facility] Comment on above: Order Comment: Speci men Type: BLOOD SPECIMENOrdering Facility: [facility] Address: [address] [place] [address] Performed By: #### 5 7021-8 ####[facility] MILLALLINA HEALTH FARIBAULT MEDICAL CENTEREmma [id number] [place] [address] [place] Hematocrit (Bld) [Volume fraction] 39.8 % Normal 36.0-46.0 [facility] Comment on above: Order Comment: Speci men Type: BLOOD SPECIMENOrdering Facility: [facility] Address: [address] [place] [address] Performed By: #### 5 7021-8 ####[facility] [id number] [place] [address] [place] Hemoglobin (Bld) [Mass/Vol] 13.6 g/dL Normal 11.5-15.5 [facility] Comment on above: Order Comment: Speci men Type: BLOOD SPECIMENOrdering Facility: [facility] Address: [address] [place] [address] Performed By: #### 5 7021-8 ####[facility] [id number] [place] [address] [place] Immature granulocytes (Bld) [#/Vol] 0.12 10*3/uL High <0.10 [facility] Comment on above: Order Comment: Speci men Type: BLOOD SPECIMENOrdering Facility: [facility] Address: [address] [place] [address] Performed By: #### 5 7021-8 ####[facility] [id number] [place] [address] [place] Immature granulocytes/100 WBC (Bld) 1.1 % Normal [facility] Comment on above: Order Comment: Speci men Type: BLOOD SPECIMENOrdering Facility: [facility] Address: [address] [place] [address] Performed By: #### 5 7021-8 ####[facility] H[facility]PITALA [id number] [place] [address] [place] Lymphocytes (Bld) [#/Vol] 2.43 10*3/uL Normal 1.00-4.00 [facility] Comment on above: Order Comment: Speci men Type: BLOOD SPECIMENOrdering Facility: [facility] Address: [address] [place] [address] Performed By: #### 5 7021-8 ####[facility] [id number] [place] [address] [place] Lymphocytes/100 WBC (Bld) 22.5 % Normal [facility] Comment on above: Order Comment: Speci men Type: BLOOD SPECIMENOrdering Facility: [facility] Address: [address] [place] [address] Performed By: #### 5 7021-8 ####[facility]OSPITALNCLI [id number] [place] [address] [place] MCH (RBC) [Entitic mass] 31.8 pg Normal 26.0-34.0 [facility] Comment on above: Order Comment: Speci men Type: BLOOD SPECIMENOrdering Facility: [facility] Address: [address] [place] [address] Performed By: #### 5 7021-8 ####[facility] HOSPITALNCLI [id number] [place] [address] [place] MCHC (RBC) [Mass/Vol] 34.2 g/dL Normal 30.5-36.0 [facility] Comment on above: Order Comment: Speci men Type: BLOOD SPECIMENOrdering Facility: [facility] Address: [address] [place] [address] Performed By: #### 5 7021-8 ####[facility]OSPITALNCLI [id number] [place] [address] [place] MCV (RBC) [Entitic vol] 93.0 fL Normal 80.0-100.0 [facility] Comment on above: Order Comment: Speci men Type: BLOOD SPECIMENOrdering Facility: [facility] Address: [address] [place] [address] Performed By: #### 5 7021-8 ####[facility] PANWNCLIA [id number] [place] [address] [place] Monocytes (Bld) [#/Vol] 0.54 10*3/uL Normal <0.87 [facility] Comment on above: Order Comment: Speci men Type: BLOOD SPECIMENOrdering Facility: [facility] Address: [address] [place] [address] Performed By: #### 5 7021-8 ####[facility] MILLWBARBARALIA [id number] [place] [address] [place] Monocytes/100 WBC (Bld) 5.0 % Normal [facility] Comment on above: Order Comment: Speci men Type: BLOOD SPECIMENOrdering Facility: [facility] Address: [address] [place] [address] Performed By: #### 5 7021-8 ####[facility] ALMASFORT DRUMNCLIA [id number] [place] [address] [place] Neutrophils (Bld) [#/Vol] 7.57 10*3/uL High 1.45-7.50 [facility] Comment on above: Order Comment: Speci men Type: BLOOD SPECIMENOrdering Facility: [facility] Address: [address] [place] [address] Performed By: #### 5 7021-8 ####[facility] MILLTOWNCLIA [id number] [place] [address] [place] Neutrophils/100 WBC (Bld) 70.2 % Normal [facility] Comment on above: Order Comment: Speci men Type: BLOOD SPECIMENOrdering Facility: [facility] Address: [address] [place] [address] Performed By: #### 5 7021-8 ####[facility] HOSPITALA [id number] [place] [address] [place] Nucleated RBC (Bld) [#/Vol] 10*3/uL Normal <0.01 [facility] Comment on above: Order Comment: Speci men Type: BLOOD SPECIMENOrdering Facility: [facility] Address: [address] [place] [address] Performed By: #### 5 7021-8 ####[facility] [id number] [place] [address] [place] Nucleated RBC/100 WBC (Bld) [Ratio] 0.0 /100 WBC Normal [facility] Comment on above: Order Comment: Speci men Type: BLOOD SPECIMENOrdering Facility: [facility] Address: [address] [place] [address] Performed By: #### 5 7021-8 ####[facility] [id number] [place] [address] [place] Platelet mean volume (Bld) [Entitic vol] 9.8 fL Normal 9.0-12.7 [facility] Comment on above: Order Comment: Speci men Type: BLOOD SPECIMENOrdering Facility: [facility] Address: [address] [place] [address] Performed By: #### 5 7021-8 ####[facility] CENTERHILLARY [id number] [place] [address] [place] Platelets (Bld) [#/Vol] 179 10*3/uL Normal 150-400 [facility] Comment on above: Order Comment: Speci men Type: BLOOD SPECIMENOrdering Facility: [facility] Address: [address] [place] [address] Performed By: #### 5 7021-8 ####[facility] CENTERLIA [id number] [place] [address] [place] RBC (Bld) [#/Vol] 4.28 10*6/uL Normal 3.90-5.20 [facility] Comment on above: Order Comment: Speci men Type: BLOOD SPECIMENOrdering Facility: [facility] Address: [address] [place] [address] Performed By: #### 5 7021-8 ####[facility]ITAL[facility] [id number] [place] [address] [place] WBC (Bld) [#/Vol] 10.79 10*3/uL Normal 3.70-11.00 [facility] Comment on above: Order Comment: Speci men Type: BLOOD SPECIMENOrdering Facility: [facility] Address: [address] [place] [address] Performed By: #### 5 7021-8 ####[facility]ITAL[facility] [id number] [place] [address] [place] GESTATIONAL GLUCOSE SCREEN, 1-HOUR, 50 GRAM, NON-FASTINGon 08-12-2024 Glucose [Mass/Vol] 136 mg/dL High 74-134 [facility] Comment on above: Order Comment: Speci men Type: BLOOD SPECIMENOrdering Facility: [facility] Address: [address] [place] [address] Result Comment: [facility] Congress of Obstetricians and Gynecologists (Lowry/Penny) guidelines state a gestational diabetes mellitus positive screen is made, in women not previously diagnosed with overt diabetes, when the 1 hr plasma glucose level is equal to or above 140 mg/dL. [facility] recommends a 135 mg/dL cutoff. Performed By: #### G LTGST ####[facility] [id number] [place] [address] [place] Reagin and Treponema pallidu m IgG and IgM [Interp]on 08-12-2024 T. pallidum IgG+IgM IA Ql (S) Non-Reactive Normal Nonreactive [facility] Comment on above: Order Comment: Speci men Type: BLOOD SPECIMENOrdering Facility: [facility] Address: [address] [place], [place] [id number] Performed By: #### 7 3752-8 ####[facility] LABCLIA [id number] [place] [id number] [place] Reagin+T pallidum IgG+IgM Se rPl-Impon 08-12-2024 Reagin and Treponema pallidum IgG and IgM [Interp] Cannot exclude recent Treponemal infection if specimen collected within 7-10 days after appearance of suspect lesions or 2-3 weeks after an exposure. Clinical correlation is required. Normal [facility] Comment on above: Order Comment: Speci men Type: BLOOD SPECIMENOrdering Facility: [facility] Address: [address] [place] [address] Performed By: #### 7 3752-8 ####[facility] LABCLIA [id number] [place] [id number] [place] Examination level ultrasound on 06-20-2024 Indication Detailed anatomic survey Maternal obesity, BMI >35 Impression REMOTE READ The patient is referred for a detailed anatomic survey. - Single, live, intrauterine . - biometry is consistent with the established gestational age. - No malformations were visualized on a complete detailed anatomic survey. - The amniotic fluid volume is normal amount. - The placenta is anterior, fundal. - The Transabdominal cervical length measures 45.3 mm with no evidence of funneling or other dynamic changes. - Not all structural malformations can be detected by ultrasound examination. Recommendations Additional follow-up as clinically indicated. Maternal Assessment Height 165 cm Height (ft) 5 ft Height (in) 5 in Physical Exam Initial weight (lb) 226 lb Initial BMI 37.61 kg/m Maternal assessment other: 2 Para 1 Method Transabdominal ultrasound examination. View: Adequate visualization Lam . Number of fetuses: 1 Dating LMP on: 01/11/2024 GA by LMP 22 w + 4 d DONNELL by LMP: 2024 GA by prior assessment 21 w + 0 d DONNELL by prior assessment: 10/28/2024 Ultrasound examination on: 06/17/2024 GA by U/S based upon: AC, BPD, Femur, HC GA by U/S 22 w + 0 d DONNELL by U/S: 10/21/2024 Assigned: based on stated DONNELL, selected on 06/17/2024 Assigned GA 21 w + 0 d Assigned DONNELL: 10/28/2024 General Evaluation Cardiac activity present. FHR 143 bpm. movements: present. Presentation: cephalic Placenta: Placental site: anterior, fundal Umbilical cord: Cord vessels: 3 vessel cord Amniotic fluid: Amount of AF: normal amount. MVP 6.8 cm Growth Overview Exam date GA BPD (mm) HC (mm) AC (mm) FL (mm) HL (mm) EFW (g) 06/17/2024 21w 0d 52.5 83% 195.5 72% 174.5 84% 35.8 77% 34.6 74% 459 87% Biometry Standard BPD 52.5 mm 22w 0d 83% Hadlock OFD 69.2 mm 21w 4d 92% Nicolaides HC 195.5 mm 21w 5d 72% Krish Cerebellum tr 23.3 mm 21w 4d 81% Hill Nuchal fold 5.8 mm AC 174.5 mm 22w 3d 84% Hadlock Femur 35.8 mm 21w 4d 77% Krish Humerus 34.6 mm 21w 6d 74% Krish EFW 459 g 21w 5d 87% Hadlock EFW (lb) 1 lb EFW (oz) 0 oz EFW by: Hadlock (HC-AC-FL) Extended Older Adult Social Work Specialist 6.5 mm CM 3.8 mm 10% Nicolaides Extremities / Bony Struc FL / HC 0.18 11% Hadlock Other Structures FHR 143 bpm Anatomy Cranium: normal Lateral ventricles: normal Choroid plexus: normal Midline falx: normal Cavum septi pellucidi: normal Cerebellum: normal Cisterna magna: normal Head / Neck Vermis: normal Neck: normal Nuchal fold: normal Lips: normal Profile: normal Nose: normal Face Maxilla: normal Mandible: normal Orbits: normal Lens: normal 4-chamber view: normal RVOT view: normal LVOT view: normal 3-vessel view: normal 6-[id number] view: normal Heart / Thorax Situs: situs solitus (normal) Aortic arch view: normal SVC: normal IVC: normal Cardiac axis: normal Rt lung: normal Lt lung: normal Diaphragm: normal Cord insertion: normal Stomach: normal Kidneys: normal Bladder: normal Genitals: normal Abdomen Abdom. wall: normal Cervical spine: normal Thoracic spine: normal Lumbar spine: normal Sacral spine: normal Arms: normal Legs: normal Rt upper arm: normal Rt forearm: normal Rt hand: normal Rt fingers: normal Lt upper arm: normal Lt forearm: normal Lt hand: normal Lt fingers: normal Rt upper leg: normal Rt lower leg: normal Rt foot: normal Lt upper leg: normal Lt lower leg: normal Lt foot: normal sex: male Wants to know sex: yes Maternal Structures Uterus / Cervix Uterus: Visualized Cervix: Visualized Approach: Transabdominal Cervical length 45.3 mm Other: Patient declined transvaginal ultrasound for cervical length. Ovaries / Tubes / Adnexa Rt ovary: Not visualized Lt ovary: Not visualized Performed By: Mattie Berger RDMS, RVT Read By: Aziza Hurtado M.D. MATERNAL MEDICINE [facility] Examination level ultrasound on 06-17-2024 Radiology Study observation (narrative) [facility] CBC W Auto Differential pane l (Bld)on 04-15-2024 Basophils (Bld) [#/Vol] 0.04 10*3/uL Normal <0.11 [facility] Comment on above: Order Comment: Speci men Type: BLOOD SPECIMENOrdering Facility: [facility] Address: [address] [place] [address] Performed By: #### 5 7021-8 ####[facility] [id number] [place] [address] [place] Basophils/100 WBC (Bld) 0.4 % Normal [facility] Comment on above: Order Comment: Speci men Type: BLOOD SPECIMENOrdering Facility: [facility] Address: [address] [place] [address] Performed By: #### 5 7021-8 ####[facility] [id number] [place] [address] [place] Differential cell count method Nom (Bld) Auto Normal [facility] Comment on above: Order Comment: Speci men Type: BLOOD SPECIMENOrdering Facility: [facility] Address: [address] [place] [address] Performed By: #### 5 7021-8 ####[facility] ALMASGIANCARLOHILLARYEmma [id number] [place] [address] [place] Eosinophils (Bld) [#/Vol] 0.10 10*3/uL Normal <0.46 [facility] Comment on above: Order Comment: Speci men Type: BLOOD SPECIMENOrdering Facility: [facility] Address: [address] [place] [address] Performed By: #### 5 7021-8 ####[facility]PITALBARBARAEmma [id number] [place] [address] [place] Eosinophils/100 WBC (Bld) 1.1 % Normal [facility] Comment on above: Order Comment: Speci men Type: BLOOD SPECIMENOrdering Facility: [facility] Address: [address] [place] [address] Performed By: #### 5 7021-8 ####[facility] HOSPITALNCLUIS [id number] [place] [address] [place] Erythrocyte distribution width (RBC) [Ratio] 12.6 % Normal 11.5-15.0 [facility] Comment on above: Order Comment: Speci men Type: BLOOD SPECIMENOrdering Facility: [facility] Address: [address] [place] [address] Performed By: #### 5 7021-8 ####[facility]PITALNCLIA [id number] [place] [address] [place] Hematocrit (Bld) [Volume fraction] 42.7 % Normal 36.0-46.0 [facility] Comment on above: Order Comment: Speci men Type: BLOOD SPECIMENOrdering Facility: [facility] Address: [address] [place] [address] Performed By: #### 5 7021-8 ####[facility] ALMASWBARBARALIA [id number] [place] [address] [place] Hemoglobin (Bld) [Mass/Vol] 15.1 g/dL Normal 11.5-15.5 [facility] Comment on above: Order Comment: Speci men Type: BLOOD SPECIMENOrdering Facility: [facility] Address: [address] [place] [address] Performed By: #### 5 7021-8 ####[facility] CENTERLIA [id number] [place] [address] [place] Immature granulocytes (Bld) [#/Vol] 0.04 10*3/uL Normal <0.10 [facility] Comment on above: Order Comment: Speci men Type: BLOOD SPECIMENOrdering Facility: [facility] Address: [address] [place] [address] Performed By: #### 5 7021-8 ####[facility]PITALA [id number] [place] [address] [place] Immature granulocytes/100 WBC (Bld) 0.4 % Normal [facility] Comment on above: Order Comment: Speci men Type: BLOOD SPECIMENOrdering Facility: [facility] Address: [address] [place] [address] Performed By: #### 5 7021-8 ####[facility]OSPITALBARBARALIA [id number] [place] [address] [place] Lymphocytes (Bld) [#/Vol] 2.66 10*3/uL Normal 1.00-4.00 [facility] Comment on above: Order Comment: Speci men Type: BLOOD SPECIMENOrdering Facility: [facility] Address: [address] [place] [address] Performed By: #### 5 7021-8 ####[facility]ITAL[facility] [id number] [place] [id number] [place] Lymphocytes/100 WBC (Bld) 28.0 % Normal [facility] Comment on above: Order Comment: Speci men Type: BLOOD SPECIMENOrdering Facility: [facility] Address: [address] [place] [address] Performed By: #### 5 7021-8 ####[facility]ITAL[facility] [id number] [place] [address] [place] MCH (RBC) [Entitic mass] 31.1 pg Normal 26.0-34.0 [facility] Comment on above: Order Comment: Speci men Type: BLOOD SPECIMENOrdering Facility: [facility] Address: [address] [place] [address] Performed By: #### 5 7021-8 ####[facility] [id number] [place] [address] [place] MCHC (RBC) [Mass/Vol] 35.4 g/dL Normal 30.5-36.0 [facility] Comment on above: Order Comment: Speci men Type: BLOOD SPECIMENOrdering Facility: [facility] Address: [address] [place] [address] Performed By: #### 5 7021-8 ####[facility] HOSPITALNCLI [id number] [place] [address] [place] MCV (RBC) [Entitic vol] 87.9 fL Normal 80.0-100.0 [facility] Comment on above: Order Comment: Speci men Type: BLOOD SPECIMENOrdering Facility: [facility] Address: [address] [place] [address] Performed By: #### 5 7021-8 ####[facility]ITALNCLI [id number] [place] [address] [place] Monocytes (Bld) [#/Vol] 0.67 10*3/uL Normal <0.87 [facility] Comment on above: Order Comment: Speci men Type: BLOOD SPECIMENOrdering Facility: [facility] Address: [address] [place] [address] Performed By: #### 5 7021-8 ####[facility] ALMASGUSTABO [id number] [place] [address] [place] Monocytes/100 WBC (Bld) 7.1 % Normal [facility] Comment on above: Order Comment: Speci men Type: BLOOD SPECIMENOrdering Facility: [facility] Address: [address] [place] [address] Performed By: #### 5 7021-8 ####[facility] [id number] [place] [address] [place] Neutrophils (Bld) [#/Vol] 5.99 10*3/uL Normal 1.45-7.50 [facility] Comment on above: Order Comment: Speci men Type: BLOOD SPECIMENOrdering Facility: [facility] Address: [address] [place] [address] Performed By: #### 5 7021-8 ####[facility] HOSPITALNCA [id number] [place] [address] [place] Neutrophils/100 WBC (Bld) 63.0 % Normal [facility] Comment on above: Order Comment: Speci men Type: BLOOD SPECIMENOrdering Facility: [facility] Address: [address] [place] [address] Performed By: #### 5 7021-8 ####[facility]ITALNCLIA [id number] [place] [address] [place] Nucleated RBC (Bld) [#/Vol] 10*3/uL Normal <0.01 [facility] Comment on above: Order Comment: Speci men Type: BLOOD SPECIMENOrdering Facility: [facility] Address: [address] [place] [address] Performed By: #### 5 7021-8 ####[facility] ALMASGIANCARLOLIA [id number] [place] [address] [place] Nucleated RBC/100 WBC (Bld) [Ratio] 0.0 /100 WBC Normal [facility] Comment on above: Order Comment: Speci men Type: BLOOD SPECIMENOrdering Facility: [facility] Address: [address] [place] [address] Performed By: #### 5 7021-8 ####[facility]OSPITALALBERTO [id number] [place] [address] [place] Platelet mean volume (Bld) [Entitic vol] 9.7 fL Normal 9.0-12.7 [facility] Comment on above: Order Comment: Speci men Type: BLOOD SPECIMENOrdering Facility: [facility] Address: [address] [place] [address] Performed By: #### 5 7021-8 ####[facility]PITALBARBARAEmma [id number] [place] [address] [place] Platelets (Bld) [#/Vol] 236 10*3/uL Normal 150-400 [facility] Comment on above: Order Comment: Speci men Type: BLOOD SPECIMENOrdering Facility: [facility] Address: [address] [place] [address] Performed By: #### 5 7021-8 ####[facility] [id number] [place] [address] [place] RBC (Bld) [#/Vol] 4.86 10*6/uL Normal 3.90-5.20 [facility] Comment on above: Order Comment: Speci men Type: BLOOD SPECIMENOrdering Facility: [facility] Address: [address] [place] [address] Performed By: #### 5 7021-8 ####[facility] [id number] [place] [id number] [place] WBC (Bld) [#/Vol] 9.50 10*3/uL Normal 3.70-11.00 [facility] Comment on above: Order Comment: Speci men Type: BLOOD SPECIMENOrdering Facility: [facility] Address: [address] [place] [address] Performed By: #### 5 7021-8 ####[facility] [id number] [place] [address] [place] HBV surface Ag Ser Qlon HBV surface Ag Ql (S) Negative Normal Negative [facility] Comment on above: Order Comment: Speci men Type: BLOOD SPECIMENOrdering Facility: [facility] Address: [address] [place] [address] Performed By: #### 3 1201-7, 5195-3, 34429-5 ####[facility] LABCLIA [id number] [place] [address] [place] HCV Ab Ser Qlon 04-15-2024 HCV Ab Ql (S) Negative Normal Negative [facility] Comment on above: Order Comment: Speci men Type: BLOOD SPECIMENOrdering Facility: [facility] Address: [address] [place] [address] Result Comment: The result suggests no evidence of active infection with Hepatitis C virus. Should recent infection be suspected, repeat testing may be considered 4-6 weeks after this draw. Performed By: #### 1 6128-1 ####[facility] LABCLIA [id number] [place] [address] [place] HIV 1+2 Ab IA Qlon HIV 1 and 2 Ab IA.rapid Nom (S/P/Bld) Normal [facility] Comment on above: Order Comment: Speci men Type: BLOOD SPECIMENOrdering Facility: [facility] Address: [address] [place] [address] Result Comment: Test not indicated. Performed By: #### 3 1201-7, 5195-3, 39790-1 ####[facility] LABIA [id number] [place] [address] [place] HIV 1+2 Ab+HIV1 p24 Ag IA Ql Non-Reactive Normal Nonreactive [facility] Comment on above: Order Comment: Speci men Type: BLOOD SPECIMENOrdering Facility: [facility] Address: [address] [place] [address] Performed By: #### 3 1201-7, 5195-3, 49942-8 ####[facility] LABIA [id number] [place] [address] [place] HIV immunoassay testing algorithm interpretation (S/P/Bld) [Interp] Normal [facility] Comment on above: Order Comment: Speci men Type: BLOOD SPECIMENOrdering Facility: [facility] Address: [address] [place] [address] Result Comment: No e vidence of HIV-1 or HIV-2 infection. Should recent infection be suspected, repeat testing may be considered 2-3 weeks after this draw. [place] Rev. Code 3701.243(E): This information has been disclosed to you from confidential records protected from disclosure by state law. ???You shall make no further disclosure of this information without the specific, written, and informed release of the individual to whom it pertains or as otherwise permitted by state law. A general authorization for the release of medical or other information is not sufficient for the purpose of the release of HIV test results or diagnoses. Performed By: #### 3 1201-7, 5195-3, 07088-8 ####[facility] LABIA [id number] [place] [address] [place] HbA1c (Bld)on 04-15-2024 Average glucose Estimated from glycated hemoglobin (Bld) [Mass/Vol] 80 mg/dL Normal [facility] Comment on above: Order Comment: Speci men Type: BLOOD SPECIMENOrdering Facility: [facility] Address: [address] [place] [address] Result Comment: eAG: (Estimated average glucose) is a calculated value from HgbA1c and is home office representative of the average blood glucose level in the last 2-3 month period. Performed By: #### 5 5454-3 ####[facility] LABIA [id number] [place] [address] [place] HbA1c (Bld) [Mass fraction] 4.4 % Normal 4.3-5.6 [facility] Comment on above: Order Comment: Speci men Type: BLOOD SPECIMENOrdering Facility: [facility] Address: [address] [place] [address] Result Comment: Amer [place] Diabetes Association guidelines indicate that patients with HgbA1c in the range 5.7-6.4% are at increased risk for development of diabetes, and intervention by lifestyle modification may be beneficial. HgbA1c greater or equal to 6.5% is considered diagnostic of diabetes. Performed By: #### 5 5454-3 ####[facility]ATION[facility] [id number] [address] [place] RUBELLA IGG ANTIBODYon 04-15 RUBELLA IGG AB, QUAL Positive Normal Positive [facility] Comment on above: Order Comment: Sarai kristel Type: BLOOD SPECIMENOrdering Facility: [facility] Address: [address] [place] [address] Result Comment: The result suggests recent or past exposure to Rubella virus or history of Rubella vaccination. Positive result may also be seen due to presence of passively-transferred antibodies. Please correlate with patient's history. Performed By: #### R [id number] ####[facility] LABIA [id number] [place] [address] [place] Reagin and Treponema pallidu m IgG and IgM [Interp]on 04-15-2024 T. pallidum IgG+IgM IA Ql (S) Non-Reactive Normal Nonreactive [facility] Comment on above: Order Comment: Speci men Type: BLOOD SPECIMENOrdering Facility: [facility] Address: [address] [place] [address] Performed By: #### 3 1201-7, 5195-3, 87400-2 ####[facility] LABCLIA [id number] [place] [address] [place] Reagin+T pallidum IgG+IgM Se rPl-Impon 04-15-2024 Reagin and Treponema pallidum IgG and IgM [Interp] Cannot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 [facility] 03-18-2024 09:35-0500 Body mass index (BMI) [Ratio] 38.38 kg/m2 Max Hayvette [employer] BUSINESS AGENT.INTEGRATION CONSULTANT Work Phone: [facility] 03-18-2024 09:35-0500 Body weight 103.87 kg Maxana Agustin [employer] BUSINESS AGENT.INTEGRATION CONSULTANT Work Phone: [facility] 03-18-2024 09:35-0500 Diastolic blood pressure 70 mm[Hg] Max Haury [employer]RI BUSINESS AGENT.INTEGRATION CONSULTANT Work Phone: [facility] 03-18-2024 09:35-0500 Systolic blood pressure 128 mm[Hg] Max Hayvette BREWER Work Phone: [facility] 12-31-2023 08:00-0400 Body mass index (BMI) [Ratio] 37.44 kg/m2 Valentina WILSON-C Work Phone: [facility] 12-31-2023 08:00-0400 Body temperature 98.29 [degF] Valentina Del Rosario PA-C Work Phone: [facility] 12-31-2023 08:00-0400 Body weight 100.7 kg Valentina Del Rosario PA-C Work Phone: [facility] 12-31-2023 08:00-0400 Diastolic blood pressure 72 mm[Hg] Valentina Del Rosario PA-C Work Phone: [facility] 12-31-2023 08:00-0400 Heart rate 84 /min Valentina Del Rosario PA-C Work Phone: [facility] 12-31-2023 08:00-0400 Respiratory rate 18 /min Valentina Del Rosario PA-C Work Phone: [facility] 12-31-2023 08:00-0400 SaO2% (BldA) [Mass fraction] 98 % Valentina WILSON-C Work Phone: [facility] 12-31-2023 08:00-0400 Systolic blood pressure 110 mm[Hg] Valentina WILSON-C Work Phone: [facility] 10-19-2023 11:29-0400 Body height 164 cm Leonie Leon MD Work Phone: [facility] 10-19-2023 11:29-0400 Body mass index (BMI) [Ratio] 36.6 kg/m2 Leonie Leon MD Work Phone: [facility] 10-19-2023 11:29-0400 Body weight 98.43 kg Leonie Leon MD Work Phone: [facility] 10-19-2023 11:29-0400 Diastolic blood pressure 84 mm[Hg] Leonie Leon MD Work Phone: [facility] 10-19-2023 11:29-0400 Systolic blood pressure 136 mm[Hg] Leonie Leon MD Work Phone: [facility] 05-08-2023 08:51-0500 Body weight 94.8 kg Fabi Farah [employer] BUSINESS AGENT.INTEGRATION CONSULTANT Work Phone: [facility] 05-08-2023 08:51-0500 Diastolic blood pressure 64 mm[Hg] Fabi Farah [employer]RI BUSINESS AGENT.INTEGRATION CONSULTANT Work Phone: [facility] 05-08-2023 08:51-0500 Heart rate 80 /min Fabi Farah [employer]RI BUSINESS AGENT.INTEGRATION CONSULTANT Work Phone: [facility] 05-08-2023 08:51-0500 Respiratory rate 14 /min Fabi Farah [employer]RI BUSINESS AGENT.INTEGRATION CONSULTANT Work Phone: [facility] 05-08-2023 08:51-0500 Systolic blood pressure 112 mm[Hg] Fabi Farah [employer]RI BUSINESS AGENT.INTEGRATION CONSULTANT Work Phone: [facility] 02-11-2023 18:29-0500 Body weight 101.61 kg Fabi Farah [employer]RI BUSINESS AGENT.INTEGRATION CONSULTANT Work Phone: [facility] 02-11-2023 18:29-0500 Diastolic blood pressure 62 mm[Hg] Fabi Farah [employer]RI BUSINESS AGENT.INTEGRATION CONSULTANT Work Phone: [facility] 02-11-2023 18:29-0500 Heart rate 60 /min Fabi Farah AGRI BUSINESS AGENT.INTEGRATION CONSULTANT Work Phone: [facility] 02-11-2023 18:29-0500 Respiratory rate 12 /min Fabi Farah [employer]RI BUSINESS AGENT.INTEGRATION CONSULTANT Work Phone: [facility] 02-11-2023 18:29-0500 Systolic blood pressure 130 mm[Hg] Fabi Farah [employer]RI BUSINESS AGENT.INTEGRATION CONSULTANT Work Phone: [facility] 02-06-2023 08:57-0500 Body temperature 98.4 [degF] Fabi Farah [employer]RI BUSINESS AGENT.INTEGRATION CONSULTANT Work Phone: [facility] 02-06-2023 08:57-0500 Body weight 101.52 kg Fabi Farah [employer]RI BUSINESS AGENT.INTEGRATION CONSULTANT Work Phone: [facility] 02-06-2023 08:57-0500 Diastolic blood pressure 62 mm[Hg] Fabi Farah [employer]RI BUSINESS AGENT.INTEGRATION CONSULTANT Work Phone: [facility] 02-06-2023 08:57-0500 Heart rate 84 /min Fabi Farah [employer]RI BUSINESS AGENT.INTEGRATION CONSULTANT Work Phone: [facility] 02-06-2023 08:57-0500 SaO2% (BldA) [Mass fraction] 98 % Fabi Farah [employer]RI BUSINESS AGENT.INTEGRATION CONSULTANT Work Phone: [facility] 02-06-2023 08:57-0500 Systolic blood pressure 122 mm[Hg] Fabi Farah [employer]RI BUSINESS AGENT.INTEGRATION CONSULTANT Work Phone: [facility] 10-13-2022 08:49-0400 Body height 165.1 cm Leonie Leon MD Work Phone: [facility] 10-13-2022 08:49-0400 Body weight 98.43 kg Leonie Leon MD Work Phone: [facility] 10-13-2022 08:49-0400 Diastolic blood pressure 80 mm[Hg] Leonie Leon MD Work Phone: [facility] 10-13-2022 08:49-0400 Systolic blood pressure 126 mm[Hg] Leonie Leon MD Work Phone: [facility] 01-21-2022 14:11-0500 Body temperature 97.7 [degF] Frank Spearsrison DO Work Phone: [facility] 01-21-2022 14:11-0500 Body weight 82.56 kg Frank Marinelli DO Work Phone: [facility] 01-21-2022 14:11-0500 Diastolic blood pressure 80 mm[Hg] Frank Marinelli DO Work Phone: [facility] 01-21-2022 14:11-0500 Heart rate 84 /min Frank Marinelli DO Work Phone: [facility] 01-21-2022 14:11-0500 Respiratory rate 16 /min Frank Marinelli DO Work Phone: [facility] 01-21-2022 14:11-0500 Systolic blood pressure 120 mm[Hg] Frank Marinelli DO Work Phone: [facility] 10-11-2021 13:18-0400 Body height 165.1 cm Leonie Leon MD Work Phone: [facility] 10-11-2021 13:18-0400 Body weight 92.53 kg Leonie Leon MD Work Phone: [facility] 10-11-2021 13:18-0400 Diastolic blood pressure 78 mm[Hg] Leonie Leon MD Work Phone: [facility] 10-11-2021 13:18-0400 Systolic blood pressure 126 mm[Hg] Leonie Leon MD Work Phone: [facility] Encounters Encounter Date Encounter Type Care Provider Facility Start: 10-19-2024 End: 10-19-2024 Patient encounter procedure Brandan Puga MD Work Phone: OB/Gynecology Comment on above: Supervision of high risk in third trimester (HCC) (Primary Dx); Other obesity affecting in third trimester (HCC); Polyhydramnios in third trimester complication, single or unspecified fetus (HCC); 38 weeks gestation of (HCC) Start: 10-13-2024 End: 10-13-2024 ambulatory FRANK L MARINELLI Facility:[facility] Start: 10-07-2024 End: 10-07-2024 Patient encounter procedure Brandan Puga MD Work Phone: OB/Gynecology Comment on above: Supervision of high risk in third trimester (HCC) (Primary Dx); Polyhydramnios in third trimester complication, single or unspecified fetus (HCC); Other obesity affecting in third trimester (HCC); 37 weeks gestation of (HCC); Excessive growth affecting management of in third trimester, single or unspecified fetus (HCC) Start: 10-07-2024 End: 10-07-2024 ambulatory FRANK MARINELLI Facility:[facility] Start: 09-30-2024 End: 10-03-2024 Follow-up encounter Kelsi Hall MUKUL Work Phone: OB/Gynecology Start: 09-30-2024 End: 09-30-2024 Patient encounter procedure Whi Tech 1 Cash Application Representative [facility] Comment on above: Obesity affecting pr egnancy in first trimester, unspecified obesity type (HCC) (Primary Dx); Other obesity affecting in third trimester (HCC) 36 weeks gestation o f (HCC) (Primary Dx); Supervision of high risk in third trimester (HCC); Polyhydramnios in third trimester complication, single or unspecified fetus (HCC); Other obesity affecting in third trimester (HCC) Start: 09-30-2024 End: 09-30-2024 ambulatory FRANK Nolan MARINELLI Facility:[facility] Start: 09-23-2024 End: 09-23-2024 Patient encounter procedure Liset Castañeda MD Work Phone: OB/Gynecology Comment on above: Supervision of high risk in third trimester (HCC) (Primary Dx); Polyhydramnios in third trimester complication, single or unspecified fetus (HCC); Other obesity affecting in third trimester (HCC); 35 weeks gestation of (HCC) Start: 09-23-2024 End: 09-23-2024 ambulatory FRANK L MARINELLI Facility:[facility] Start: 09-16-2024 End: 09-16-2024 Patient encounter procedure Yumiko Carver MD Work Phone: OB/Gynecology Comment on above: Polyhydramnios in th ird trimester complication, single or unspecified fetus (HCC) (Primary Dx); Other obesity affecting in third trimester (HCC); 34 weeks gestation of (HCC) Start: 09-16-2024 End: 09-16-2024 ambulatory FRANK L MARINELLI Facility:[facility] Start: 09-02-2024 End: 09-02-2024 Patient encounter procedure rBandan Puga MD Work Phone: OB/Gynecology Comment on above: Supervision of high risk in third trimester (HCC) (Primary Dx); Other obesity affecting in third trimester (HCC); 32 weeks gestation of (HCC) Start: 09-02-2024 End: 09-02-2024 Patient encounter procedure Whi [employer] 1 Cash Application Representative [facility] Comment on above: Encounter for ultras ound to check growth (HCC) (Primary Dx); Other obesity affecting in third trimester (HCC); 32 weeks gestation of (HCC); Polyhydramnios in third trimester complication, single or unspecified fetus (HCC) Start: 09-02-2024 End: 09-02-2024 ambulatory FRANK L MARINELLI Facility:[facility] Start: 08-26-2024 End: 08-26-2024 Patient encounter procedure Liset Castañeda MD Work Phone: OB/Gynecology Comment on above: 31 weeks gestation o f (HCC) (Primary Dx); Supervision of high risk in third trimester (HCC); Other obesity affecting in third trimester (HCC) Start: 08-26-2024 End: 08-26-2024 ambulatory FRANK L MARINELLI Facility:[facility] Start: 08-15-2024 End: 10-15-2024 Follow-up encounter Kelsi Hall APRN.CNM Work Phone: OB/Gynecology Start: 08-13-2024 End: 08-13-2024 ambulatory FRANK L MARINELLI Facility:[facility] Start: 08-12-2024 End: 08-16-2024 Follow-up encounter Kelsi Hall APRN.CNReba Work Phone: OB/Gynecology Start: 08-12-2024 End: 08-12-2024 Patient encounter procedure Kelsi Hall APRN.CNReba Work Phone: OB/Gynecology Comment on above: Supervision of high risk in third trimester (HCC) (Primary Dx); 29 weeks gestation of (HCC); Other obesity affecting in third trimester (HCC); History of vacuum extraction assisted delivery; History of pulmonary embolism; Need for vaccination Start: 08-12-2024 End: 08-12-2024 ambulatory FRANK MARINELLI Facility:[facility] Start: 07-29-2024 End: 08-10-2024 ambulatory Kelsi Boncarmina [employer] BUSINESS AGENT.CNM Work Phone: OB/Gynecology Comment on above: Work note Start: 07-19-2024 End: 07-21-2024 ambulatory Kelsi Rafael [employer] BUSINESS AGENT.CNM Work Phone: OB/Gynecology Comment on above: Work note Start: 07-18-2024 End: 07-18-2024 Patient encounter procedure Kelsi Hall [employer]RI BUSINESS AGENT.CNM Work Phone: OB/Gynecology Comment on above: Supervision of high risk in second trimester (HCC) (Primary Dx); 25 weeks gestation of (HCC); Screening for diabetes mellitus; Supervision of other normal , antepartum (HCC); Obesity affecting in second trimester, unspecified obesity type (HCC) Start: 07-18-2024 End: 07-18-2024 ambulatory FRANK MARINELLI Facility:[facility] Start: 06-17-2024 End: 06-17-2024 ambulatory FRANK MARINELLI Facility:[facility] Start: 06-17-2024 End: 06-17-2024 Patient encounter procedure Liset Castañeda MD Work Phone: OB/Gynecology Comment on above: 21 weeks gestation o f (HCC) (Primary Dx); Supervision of high risk in second trimester (HCC); Obesity affecting in second trimester, unspecified obesity type (HCC); History of vacuum extraction assisted delivery Encounter for anatomic survey (HCC) (Primary Dx); Obesity affecting in second trimester, unspecified obesity type (HCC); 21 weeks gestation of (HCC) Start: 06-17-2024 End: 06-17-2024 ambulatory MAX AGUSTIN Facility:[facility] Start: 05-13-2024 End: 05-13-2024 ambulatory LEONIE LEON Facility:[facility] Start: 05-13-2024 End: 05-13-2024 Patient encounter procedure Leonie Leon MD Work Phone: OB/Gynecology Comment on above: Supervision of high risk in second trimester (Primary Dx); Obesity affecting in second trimester, unspecified obesity type; 16 weeks gestation of Start: 04-19-2024 End: 04-19-2024 ambulatory FRANK MARINELLI Facility:[facility] Start: 04-19-2024 End: 04-19-2024 Patient encounter procedure Liset Castañeda MD Work Phone: OB/Gynecology Comment on above: Encounter for superv ision of high risk in first trimester, antepartum (Primary Dx); 12 weeks gestation of Start: 04-18-2024 End: 06-18-2024 Follow-up encounter Max Agustin APRN.CNP Work Phone: OB/Gynecology Start: 04-15-2024 End: 04-15-2024 ambulatory MAX AGUSTIN Facility:[facility] Start: 03-18-2024 End: 03-18-2024 ambulatory MAX AGUSTIN Facility:[facility] Start: 03-18-2024 End: 03-18-2024 Patient encounter procedure Max Agustin APRN.CNP Work Phone: OB/Gynecology Comment on above: Encounter for superv ision of high risk in first trimester, antepartum (Primary Dx); 8 weeks gestation of ; with uncertain dates in first trimester; History of pulmonary embolism; Obesity affecting in first trimester, unspecified obesity type; Nausea and vomiting during ; History of vacuum extraction assisted delivery; Screening for cervical cancer Start: 12-31-2023 End: 12-31-2023 ambulatory FRANK MARINELLI Facility:[facility] Start: 12-31-2023 End: 12-31-2023 Patient encounter procedure Valentina Del Rosario PA-C Work Phone: [facility] Comment on above: Contact dermatitis, unspecified contact dermatitis type, unspecified trigger (Primary Dx); Rash Start: 10-19-2023 End: 10-19-2023 ambulatory FRANK MARINELLI Facility:[facility] Start: 10-19-2023 End: 10-19-2023 Patient encounter procedure Leonie Leon MD Work Phone: OB/Gynecology Comment on above: Encounter for gyneco logical examination (general) (routine) without abnormal findings (Primary Dx); PCOS (polycystic ovarian syndrome) Start: 10-19-2023 End: 10-19-2023 Patient encounter status Leonie Leon MD Work Phone: [facility] Start: 08-14-2023 ambulatory Fabi Farah AGRI BUSINESS AGENT.INTEGRATION CONSULTANT Work Phone: [facility] [place] Start: 08-14-2023 Patient encounter procedure Fabigarima Farah AGRI BUSINESS AGENT.INTEGRATION CONSULTANT Work Phone: [facility] [place] Comment on above: Appointment Start: 07-03-2023 Refill Rosana arredondo AGRI BUSINESS AGENT.INTEGRATION CONSULTANT Work Phone: [facility] [place] Comment on above: Refill Request Start: 05-29-2023 ambulatory Frank staton DO Work Phone: [facility] [place] Comment on above: Reddening of face Start: 05-08-2023 End: 05-08-2023 Patient encounter procedure Fabikolton Farah AGRI BUSINESS AGENT.INTEGRATION CONSULTANT Work Phone: [facility] [place] Comment on above: Obesity, Class II, B [place] 35-39.9 Start: 02-11-2023 End: 02-11-2023 Patient encounter procedure Fabi Gagan AGRI BUSINESS AGENT.INTEGRATION CONSULTANT Work Phone: [facility] [place] Comment on above: Obesity, Class II, B [place] 35-39.9 (Primary Dx) Start: 02-06-2023 End: 02-06-2023 Patient encounter procedure Fabi Gagan AGRI BUSINESS AGENT.INTEGRATION CONSULTANT Work Phone: [facility] [place] Comment on above: Bacterial sinusitis (Primary Dx) Start: 11-24-2022 Telephone encounter Fabi staton AGRI BUSINESS AGENT.INTEGRATION CONSULTANT Work Phone: [facility] [place] Comment on above: Results Start: 11-14-2022 Refill Leonie Leon MD Work Phone: OB/Gynecology Comment on above: Refill Request Start: 10-13-2022 End: 10-13-2022 Patient encounter procedure Leonie Leon MD Work Phone: OB/Gynecology Comment on above: Encounter for gyneco logical examination (general) (routine) without abnormal findings (Primary Dx); PCOS (polycystic ovarian syndrome) Start: 10-13-2022 End: 10-13-2022 Patient encounter status Leonie Leon MD Work Phone: [facility] Start: 10-06-2022 Telephone encounter Frank pulido DO Work Phone: [facility] [place] Comment on above: Medication Problem Start: 09-08-2022 Refill Fabi Farah AGRI BUSINESS AGENT.INTEGRATION CONSULTANT Work Phone: [facility] [place] Comment on above: Refill Request Start: 05-22-2022 Refill Rosana Minerva arredondo AGRI BUSINESS AGENT.INTEGRATION CONSULTANT Work Phone: [facility] [place] Comment on above: Refill Request Start: 01-21-2022 End: 01-21-2022 Patient encounter procedure Frank Marinelli DO Work Phone: [facility] [place] Comment on above: Atypical pigmented s kin lesion (Primary Dx) Start: 12-07-2021 Refill Frank Arguelles son DO Work Phone: [facility] [place] Comment on above: Refill Request Start: 12-04-2021 Telephone encounter Frank Ovidio pulido DO Work Phone: [facility] [place] Comment on above: Patient Question Start: 12-03-2021 ambulatory Frank staton DO Work Phone: [facility] [place] Comment on above: Who to see about emma gillis? Start: 10-11-2021 ambulatory Leonie Leon MD Work Phone: OB/Gynecology Comment on above: BOOKS Start: 10-11-2021 E-mail encounter fro m caregiver Leonie Leon MD Work Phone: [facility] Start: 10-11-2021 End: 10-11-2021 Patient encounter procedure Leonie Leon MD Work Phone: OB/Gynecology Comment on above: Encounter for gyneco logical examination (general) (routine) without abnormal findings (Primary Dx); Screening for cervical cancer; PCOS (polycystic ovarian syndrome) Start: 10-11-2021 End: 10-11-2021 Patient encounter status Leonie Leon MD Work Phone: OB/Gynecology Start: 10-09-2021 Refill Brandan hahn MD Work Phone: OB/Gynecology Comment on above: Refill Request Start: 08-14-2021 Refill Brandan hahn MD Work Phone: OB/Gynecology Comment on above: Refill Request Start: 06-12-2021 Telephone encounter Rosana Bowles APRN.INTEGRATION CONSULTANT Work Phone: [facility] [place] Comment on above: Results Start: 06-04-2021 End: 06-04-2021 [facility] Frank Marinelli Work Phone: [facility] [place] Comment on above: Fatigue, unspecified type (Primary Dx); Night sweats; Depressed mood; Flushing; Irritability; Hair thinning; Screening for lipid disorders; Screening for diabetes mellitus Start: 11-10-2019 End: 08-01-2020 Patient requested procedure Rosana Leslie AGRI BUSINESS AGENT.INTEGRATION CONSULTANT Work Phone: [facility] Start: 10-14-2017 End: 10-15-2017 Patient encounter Abad Willis Facility:[facility] Start: 09-04-2017 End: 09-05-2017 Patient encounter Abad Willis Facility:[facility] Start: 09-04-2017 End: 09-05-2017 Patient encounter Abad Willis Facility:[facility] Start: 09-04-2017 Patient encounter Facil [id number] Start: 07-28-2017 End: 07-28-2017 Ambulatory DUSTIN BASSETT [facility] Start: 07-24-2017 End: 11-24-2017 Patient encounter Christy Cortes Facility:[facility] Procedures Date Procedure Procedure Detail Performing Clinician Start: 10-19-2024 Urnls dip stick/tabl et rgnt non-auto w/o micrscp Brandan Puga MD Work Phone: Start: 10-07-2024 Urnls dip stick/tabl et rgnt non-auto w/o micrscp Leonie Leon MD Work Phone: Start: 09-30-2024 Urnls dip stick/tabl et rgnt non-auto w/o micrscp Kelsi Hall AGRI BUSINESS AGENT.CNM Work Phone: Start: 09-30-2024 Us preg uterus after 1st trimest 1/ gestation Kelsi Hall AGRI BUSINESS AGENT.CNM Work Phone: Start: 09-23-2024 Urnls dip stick/tabl et rgnt non-auto w/o micrscp Liset Castañeda MD Work Phone: Start: 09-02-2024 Us preg uterus after 1st trimest 1/ gestation Kelsi Hall AGRI BUSINESS AGENT.CNM Work Phone: Start: 06-17-2024 Us preg uterus after 1st trimest 1/1st gestation Max Agustin AGRI BUSINESS AGENT.INTEGRATION CONSULTANT Work Phone: Start: 04-15-2024 Antibody screen FRANK MARINELLI Comment on above: Order Comment: Speci men Type: BLOOD SPECIMENOrdering Facility: [facility] Address: [address] [place] [address] Performed By: #### T SPN ####CC MAIN BLOOD BANKCLIA [id number] [place] [address] [place] Start: 03-18-2024 Us uterus l imited 1/> fetuses Max Agustin AGRI BUSINESS AGENT.INTEGRATION CONSULTANT Work Phone: Start: 03-18-2024 Adult depression scr eening assessment Liset Castañeda MD Work Phone: Start: 11-23-2017 Adult depression scr eening assessment Frank Spearsjamison HAQ Work Phone: Plan of Treatment Date Care Activity Detail Author Start: 08-12-2034 Urine microalbumin profile DTaP,Tdap,Td Vaccine (4 - Td or Tdap) [facility] Start: 04-27-2030 Urine microalbumin profile [facility] Start: 03-18-2027 Screening for malign ant neoplasm of cervix Cervical Cancer Screening [facility] Start: 03-18-2025 Anxiety Screening Anxiety Screening [facility] Start: 03-18-2025 Depression Screening Depression Scre ening [facility] Start: 12-02-2024 End: 12-02-2024 Patient encounter procedure 12/02/2024 10:00 AM EDT Office Visit OB/Gynecology [address] [place] [address] Meredith Dorman, AGRI BUSINESS AGENT.INTEGRATION CONSULTANT [address] [place] [address] 6 week post OB/Gynecology Comment on above: 6 week post Start: 11-07-2024 Influenza vaccination C [facility] Start: 10-28-2024 End: 10-28-2024 Patient encounter procedure 10/28/2024 2:00 PM EDT Office Visit OB/Gynecology [address] [place] [address] Kelsi Hall APRN.[facility] [address] [place] [address] 1 week post OB/Gynecology Comment on above: 1 week post Start: 10-19-2024 End: 10-19-2024 Patient encounter procedure OB/Gynecology Comment on above: NST NST/OB Start: 10-19-2024 End: 10-19-2024 Patient encounter procedure 10/19/2024 11:20 AM EDT Office Visit OB/Gynecology [address] [place] [address] Leonie Ponce MD [address] [place] [address] ANnual OB/Gynecology Comment on above: ANnual Start: 10-18-2024 End: 10-18-2024 Patient encounter procedure 10/18/2024 4:00 PM EDT Office Visit OB/Gynecology [address] [place] [address] Leonie Ponce MD [address] [place] [address] Anuual OB/Gynecology Comment on above: Anuual Start: 10-13-2024 End: 10-13-2024 Patient encounter procedure OB/Gynecology Comment on above: NST NST/OB Start: 10-11-2024 PAP TESTING PAP TESTING [facility] Start: 10-11-2024 Screening for malign ant neoplasm of cervix [facility] Start: 10-07-2024 End: 10-07-2024 Patient encounter procedure OB/Gynecology Comment on above: NST OB / discuss MOD Start: 09-30-2024 End: 09-30-2024 Patient encounter procedure Maternal Medicine Comment on above: Growth Growth /OB Start: 09-23-2024 End: 09-23-2024 Patient encounter procedure OB/Gynecology Comment on above: NST NST/OB Start: 09-16-2024 End: 09-16-2024 Patient encounter procedure OB/Gynecology Comment on above: NST/OB Start: 09-02-2024 End: 09-02-2024 Patient encounter procedure 09/02/2024 1:30 PM EDT Routine Office Visit Maternal Medicine [address] [place] [address] Growth [facility] Comment on above: Growth Start: 08-26-2024 End: 08-26-2024 Patient encounter procedure 08/26/2024 9:50 AM EDT Routine Office Visit OB/Gynecology [address] [place] [address] Liset Castañeda MD [address] [place] [address] OB OB/Gynecology Comment on above: OB Start: 08-12-2024 End: 08-12-2024 Patient encounter procedure 08/12/2024 10:00 AM EDT Routine Office Visit OB/Gynecology [address] [place] [address] Kelsi Hall APRN.CN [address] [place] [address] Ob OB/Gynecology Comment on above: Ob Start: 07-18-2024 End: 07-18-2024 Patient encounter procedure 07/18/2024 3:15 PM EDT Routine Office Visit OB/Gynecology [address] [place] [address] Kelsi Hall APRN.CN [address] [place] [address] ob OB/Gynecology Comment on above: ob Start: 07-18-2024 End: 2024 ANEMIA REFLEX PANEL ANEMIA REFLEX PANEL Lab Routine Supervision of high risk in second trimester (HCC) 25 weeks gestation of ([facility]) Supervision of other normal , antepartum (HCC) Expected: 07/18/2024, Expires: 2024 [facility] Comment on above: Expected: 07/18/2024 , Expires: 2024 Start: 07-18-2024 End: 07-18-2025 GESTATIONAL GLUCOSE SCREEN, 1-HOUR, 50 GRAM, NON-FASTING GESTATIONAL GLUCOSE SCREEN, 1-HOUR, 50 GRAM, NON-FASTING Lab Routine Supervision of high risk in second trimester (HCC) 25 weeks gestation of ([facility]) Screening for diabetes mellitus Expected: 07/18/2024, Expires: 07/18/2025 [facility] Work Phone: Comment on above: Expected: 07/18/2024 , Expires: 07/18/2025 Start: 07-18-2024 End: 07-18-2025 SYPHILIS TREPONEMAL W/REFLEX SYPHILIS TREPONEMAL W/REFLEX Lab Routine Supervision of high risk in second trimester (HCC) 25 weeks gestation of (HCC) Supervision of other normal , antepartum (HCC) Expected: 07/18/2024, Expires: 07/18/2025 [facility] Comment on above: Expected: 07/18/2024 , Expires: 07/18/2025 Start: 06-17-2024 End: 06-17-2024 Patient encounter procedure Maternal Medicine Comment on above: Anatomy Scan OB Routine Start: 05-20-2024 End: 05-20-2024 Patient encounter procedure 05/20/2024 8:30 AM EDT Routine Office Visit OB/Gynecology [address] [place] [address] Sofya Portillo MD [address] [place] [address] OB Routine OB/Gynecology Comment on above: OB Routine Start: 04-19-2024 End: 04-19-2024 Patient encounter procedure 04/19/2024 12:50 PM EST Routine Office Visit OB/Gynecology [address] [place] [address] Liset Castañeda MD [address] [place] [address] New OB LMP 01/11/2024 OB/Gynecology Comment on above: New OB LMP 01/11/2024 Start: 03-18-2024 End: 06-17-2024 ANEMIA REFLEX PANEL ANEMIA REFLEX PANEL Lab Routine with uncertain dates in first trimester Expected: 03/18/2024, Expires: 06/17/2024 [facility] Work Phone: Comment on above: Expected: 03/18/2024 , Expires: 06/17/2024 Start: 03-18-2024 End: 06-17-2024 Hemoglobin A1c in Blood HEMOGLOBIN A1C Lab Routine with uncertain dates in first trimester Expected: 03/18/2024, Expires: 06/17/2024 [facility] Comment on above: Expected: 03/18/2024 , Expires: 06/17/2024 Start: 03-18-2024 End: 06-17-2024 Hepatitis B virus surface Ag [Presence] in Serum HEPATITIS B SURFACE ANTIGEN Lab Routine with uncertain dates in first trimester Expected: 03/18/2024, Expires: 06/17/2024 [facility] Comment on above: Expected: 03/18/2024 , Expires: 06/17/2024 Start: 03-18-2024 End: 06-17-2024 Hepatitis C virus Ab [Presence] in Serum HEPATITIS C ANTIBODY IA WITH CONFIRMATION Lab Routine with uncertain dates in first trimester Expected: 03/18/2024, Expires: 06/17/2024 [facility] Comment on above: Expected: 03/18/2024 , Expires: 06/17/2024 Start: 03-18-2024 End: 06-17-2024 HIV 1+2 Ab [Presence] in Serum or Plasma by Immunoassay HIV 1/2 COMBO WITH REFLEX TO DIFFERENTIATION Lab Routine with uncertain dates in first trimester Expected: 03/18/2024, Expires: 06/17/2024 [facility] Comment on above: Expected: 03/18/2024 , Expires: 06/17/2024 Start: 03-18-2024 End: 03-18-2025 NUCHAL TRANSLUCENCY WHI NUCHAL TRANSLUCENCY WHI Anc Imaging Routine Encounter for supervision of high risk in first trimester, antepartum 8 weeks gestation of Expected: 03/18/2024, Expires: 03/18/2025 [facility] Comment on above: Expected: 03/18/2024 , Expires: 03/18/2025 Start: 03-18-2024 End: 03-18-2025 OBSTETRIC ULTRASOUND WHI OBSTETRIC ULTRASOUND [facility]I Anc Imaging Routine with uncertain dates in first trimester Expected: 03/18/2024, Expires: 03/18/2025 [facility] Comment on above: Expected: 03/18/2024 , Expires: 03/18/2025 Start: 03-18-2024 End: 06-17-2024 RUBELLA IGG ANTIBODY RUBELLA IGG ANTIBODY Lab Routine with uncertain dates in first trimester Expected: 03/18/2024, Expires: 06/17/2024 [facility] Comment on above: Expected: 03/18/2024 , Expires: 06/17/2024 Start: 03-18-2024 End: 06-17-2024 SYPHILIS TREPONEMAL W/REFLEX SYPHILIS TREPONEMAL W/REFLEX Lab Routine with uncertain dates in first trimester Expected: 03/18/2024, Expires: 06/17/2024 [facility] Comment on above: Expected: 03/18/2024 , Expires: 06/17/2024 Start: 03-18-2024 End: 06-17-2024 TYPE + SCREEN TYPE + SCREEN Blood Bank Routine with uncertain dates in first trimester Expected: 03/18/2024, Expires: 06/17/2024 [facility] Comment on above: Expected: 03/18/2024 , Expires: 06/17/2024 Start: 11-21-2023 Covid-19 Vaccine () Covid-19 Vaccine () [facility] Comment on above: Postponed from 11/07 (Declined at this time) Start: 11-21-2023 Covid-19 Vaccine (3 - Pfizer series) Covid-19 Vaccine (3 - Pfizer series) [facility] Comment on above: Postponed from 03/26 (Declined at this time) Start: 11-21-2023 HPV Vaccine (2 - 3-d ose series) HPV Vaccine (2 - 3-dose series) [facility] Comment on above: Postponed from 12/21 (Declined at this time) Start: 11-08-2023 Covid-19 Vaccine ( season) Covid-19 Vaccine ( season) [facility] Start: 11-08-2023 Influenza vaccination C [facility] Start: 10-19-2023 End: 10-19-2023 Patient encounter procedure 10/19/2023 11:20 AM EDT Office Visit OB/Gynecology [address] [place] [address] Leonie Ponce MD [address] [place] [address] Annual OB/Gynecology Comment on above: Annual Start: 09-06-2023 Influenza vaccination Influenza Vacc ine (#1) [facility] Comment on above: Postponed from 11/07 (Declined at this time) Start: 08-14-2023 End: 08-14-2023 Patient encounter procedure 08/14/2023 9:00 AM EDT Office Visit [facility] [place] [address] [place] [address] Fabi aFrah APRN.INTEGRATION CONSULTANT [address] [facility] [place] [address] 3 month f/up adipex [facility] [place] Comment on above: 3 month f/up adipex Start: 03-09-2023 Behavioral Health Screening Behavioral Health Screening [facility] Start: 03-09-2023 Depression Assessment Depression Ass [facility] Start: 02-23-2023 End: 04-25-2023 Cobalamin (Vitamin B12) [Mass/volume] in Serum or Plasma VITAMIN B12 BLOOD Lab Routine Elevated vitamin B12 level Expected: 02/23/2023, Expires: 04/25/2023 [facility] Work Phone: Comment on above: Expected: 02/23/2023 , Expires: 04/25/2023 Start: 11-07-2022 Influenza vaccination INFLUENZA (#1) [facility] Start: 09-05-2022 Influenza vaccination INFLUENZA (#1) [facility] Comment on above: Postponed from 11/07 (Declined at this time) Start: 03-09-20[address] [facility] [facility] [facility] Start: 02-11-2022 PAP TESTING PAP TESTING [facility] Start: 11-07-2021 Influenza vaccination C [facility] Start: 09-04-2021 End: 11-04-2021 Hemoglobin A1c/Hemoglobin.total in Blood HGB A1C Lab Routine Screening for diabetes mellitus Expected: 09/04/2021 (Approximate), Expires: 11/04/2021 [facility] Work Phone: Comment on above: Expected: 09/04/2021 (Approximate), Expires: 11/04/2021 Start: 06-29-2021 COVID-19 VACCINE (3 - Booster for Pfizer series) COVID-19 VACCINE (3 - Booster for Pfizer series) [facility] Start: 06-04-2021 End: 08-04-2021 C reactive protein [Mass/volume] in Serum or Plasma C-REACTIVE PROTEIN (CRP) Lab Routine Fatigue, unspecified type Night sweats Flushing Irritability Expected: 06/04/2021, Expires: 08/04/2021 [facility] Work Phone: Comment on above: Expected: 06/04/2021 , Expires: 08/04/2021 Start: 06-04-2021 End: 08-04-2021 CBC panel - Blood by Automated count CBC Lab Routine Flushing Expected: 06/04/2021, Expires: 08/04/2021 [facility] Work Phone: Comment on above: Expected: 06/04/2021 , Expires: 08/04/2021 Start: 06-04-2021 End: 08-04-2021 Comprehensive metabolic 2000 panel - Serum or Plasma COMP METABOLIC PANEL Lab Routine [place]ushing Expected: 06/04/2021, Expires: 08/04/2021 [facility] Work Phone: Comment on above: Expected: 06/04/2021 , Expires: 08/04/2021 Start: 06-04-2021 End: 08-04-2021 Heterophile Ab [Presence] in Serum by Latex agglutination MONOTEST, INFECTIOUS MONO Lab Routine Fatigue, unspecified type Night sweats [place] Expected: 06/04/2021, Expires: 08/04/2021 [facility] Work Phone: Comment on above: Expected: 06/04/2021 , Expires: 08/04/2021 Start: 06-04-2021 End: 08-04-2021 LIPID PANEL BASIC LIPID PANEL BASIC Lab Routine Screening for lipid disorders Expected: 06/04/2021, Expires: 08/04/2021 [facility] Work Phone: Comment on above: Expected: 06/04/2021 , Expires: 08/04/2021 Start: 06-04-2021 End: 08-04-2021 T3 FREE BLD T3 FREE BLD Lab Routine Fatigue, unspecified type Night sweats Depressed mood [place] Irritability Hair thinning Expected: 06/04/2021, Expires: 08/04/2021 [facility] Work Phone: Comment on above: Expected: 06/04/2021 , Expires: 08/04/2021 Start: 06-04-2021 End: 08-04-2021 T4 FREE/FREE THYROX T4 FREE/FREE THYROX Lab Routine Fatigue, unspecified type Night sweats Depressed mood [place] Irritability Hair thinning Expected: 06/04/2021, Expires: 08/04/2021 [facility] Work Phone: Comment on above: Expected: 06/04/2021 , Expires: 08/04/2021 Start: 06-04-2021 End: 08-04-2021 Thyrotropin [Units/volume] in Serum or Plasma TSH BLD Lab Routine Fatigue, unspecified type Night sweats Depressed mood [place] Irritability Hair thinning Expected: 06/04/2021, Expires: 08/04/2021 [facility] Work Phone: Comment on above: Expected: 06/04/2021 , Expires: 08/04/2021 Start: 06-04-2021 End: 08-04-2021 VITAMIN B12 BLOOD VITAMIN B12 BLOOD Lab Routine Fatigue, unspecified type Night sweats Expected: 06/04/2021, Expires: 08/04/2021 [facility] Work Phone: Comment on above: Expected: 06/04/2021 , Expires: 08/04/2021 Start: 06-04-2021 End: 08-04-2021 VITAMIN D 25 HYDROXY VITAMIN D 25 HYDROXY Lab Routine Fatigue, unspecified type Night sweats Expected: 06/04/2021, Expires: 08/04/2021 [facility] Work Phone: Comment on above: Expected: 06/04/2021 , Expires: 08/04/2021 Start: 01-18-2022 COVID-19 VACCINE (3 - Booster for Pfizer series) COVID-19 VACCINE (3 - Booster for Pfizer series) [facility] Start: 03-26-2021 COVID-19 VACCINE (3 - Pfizer series) COVID-19 VACCINE (3 - Pfizer series) [facility] Start: 03-09-2021 DEPRESSION ASSESSMENT DEPRESSION ASS ESSMENT [facility] Start: 12-07-2020 CHLAMYDIA SCREENING (18-24) CHLAMYDIA SCREENING (18-24) [facility] Start: 12-07-2020 GC (GONORRHEA) SCREENING (18-24) GC (GONORRHEA) SCREENING (18-24) [facility] Start: 11-07-2020 Influenza vaccination INFLUENZA (#1) [facility] Start: 11-23-2018 Adult depression screening assessment DEPRESSION SCREENING [facility] Start: 12-21-2017 HPV VACCINE (2 - 3-d ose series) HPV VACCINE (2 - 3-dose series) [facility] Start: 2016 Hepatitis B Vaccine (1 of 3 - 19+ 3-dose series) Hepatitis B Vaccine (1 of 3 - 19+ 3-dose series) [facility] Start: 10-18-2015 Anxiety Screening Anxiety Screening [facility] Start: 10-18-2015 Depression Screening Depression Scre ening [facility] Start: 2013 MENINGOCOCCAL B: Consider based on risk (1 of 2 - Patient Seeks Protection) MENINGOCOCCAL B: Consider based on risk (1 of 2 - Patient Seeks Protection) [facility] Start: 10-18-2011 PEDS TO ADULT TRANSITION ANNUAL ASSESSMENT PEDS TO ADULT TRANSITION ANNUAL ASSESSMENT [facility] Start: 2009 PEDS TO ADULT TRANSITION INITIAL DISCUSSION PEDS TO ADULT TRANSITION INITIAL DISCUSSION [facility] Start: 10-18-2007 MENINGOCOCCAL B: Consider based on risk (1 of 2 - Risk Bexsero 2-dose series) MENINGOCOCCAL B: Consider based on risk (1 of 2 - Risk Bexsero 2-dose series) [facility] Start: 1997 HEPATITIS B (1 of 3 - 3-dose series) HEPATITIS B (1 of 3 - 3-dose series) [facility] Start: 1997 Hepatitis B Vaccine (1 of 3 - 3-dose series) Hepatitis B Vaccine (1 of 3 - 3-dose series) [facility] Bacteria identified in Urine by Culture BACTERIAL CULTURE, URINE Microbiology Routine with uncertain dates in first trimester 03/18/2024 10:15 AM [facility] Chlamydia trachomatis+Neisseria gonorrhoeae DNA [Presence] in Unspecified specimen by DIONNA with probe detection GONORRHEA/CHLAMYDIA NAAT Lab Routine with uncertain dates in first trimester 03/18/2024 10:15 AM [facility] nonstress test NON-S TRESS TEST Procedures Routine Other obesity affecting in third trimester ([facility]) Ordered: 08/12/2024 [facility] Comment on above: Ordered: 08/12/2024 End: 12-01-2024 nonstress test NON-STRESS TEST Procedures Routine Supervision of high risk in third trimester ([facility]) Other obesity affecting in third trimester ([facility]) Every other week for 10 Occurrences starting 09/02/2024 until 12/01/2024 [facility] Work Phone: Comment on above: Every other week for 10 Occurrences starting 09/02/2024 until 12/01/2024 End: 02-08-2025 OBSTETRIC ULTRASOUND [facility] OBSTETRIC ULTRASOUND [facility] Anc Imaging Routine Other obesity affecting in third trimester ([facility]) History of vacuum extraction assisted delivery Once per month for 5 Occurrences starting 08/12/2024 until 02/08/2025 [facility] Work Phone: Comment on above: Once per month for 5 Occurrences starting 08/12/2024 until 02/08/2025 PAP FLUID CERVICAL SCREENING PAP FLUID CERVICAL SCREENING Lab Routine Screening for cervical cancer 10/11/2021 1:40 PM EDT [facility] Work Phone: PAP TEST PAP TEST Lab Tana daniels Encounter for supervision of high risk in first trimester, antepartum Screening for cervical cancer 03/18/2024 10:15 AM [facility] ROUTINE, GR OUP B STREPTOCOCCUS BY PCR ROUTINE, GROUP B STREPTOCOCCUS BY PCR Microbiology Routine 36 weeks gestation of ([facility]) Supervision of high risk in third trimester [facility] [facility] Polyhydramnios in third trimester complication, single or unspecified fetus ([facility]) Other obesity affecting in third trimester ([facility]) 09/30/2024 10:10 AM EDT [facility] Work Phone: SURGICAL PATHOLOGY SURGICAL PATH OLOGY Lab Routine Atypical pigmented skin lesion Ordered: 01/21/2022 [facility] Work Phone: Comment on above: Ordered: 01/21/2022 URINE OB DIP B/O URINE OB DIP B/ O Lab Routine Polyhydramnios in third trimester complication, single or unspecified fetus (HCC) Other obesity affecting in third trimester (HCC) 34 weeks gestation of (HCC) Ordered: 09/16/2024 [facility] Work Phone: Comment on above: Ordered: 09/16/2024 [facility] Immunizations Immunization Date Immunization Notes Care Provider Stoney trinh 08-12-2024 tetanus toxoid, redu ever diphtheria toxoid, and acellular pertussis vaccine, adsorbed Kelsi Hall AGRI BUSINESS AGENT.CNM Work Phone: [facility] 04-27-2020 tetanus toxoid, redu ever diphtheria toxoid, and acellular pertussis vaccine, adsorbed Frank Marinelli DO Work Phone: [facility] 12-21-2017 influenza virus vacc ine, unspecified formulation Fabi Farah AGRI BUSINESS AGENT.INTEGRATION CONSULTANT Work Phone: [facility] 10-30-2008 meningococcal ACWY vaccine, unspecified formulation Frank Marinelli DO Work Phone: [facility] Work Phone: Payers Date Payer Category Payer Private Health Insurance HELENA REED OAP [id number] 2020-Present [phone] [facility] [id number] [place] [address] Open Access [id number] 2020 Private Health Insurance [id number] 2020 Private Health Insurance [id number] 2018 Unknown 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 [employer] [id number] 2018-Present [phone] [address] [place] [address] O [id number] 2018 Unknown [id number] 2017 Unknown Social History Date Type Detail Facility Start: 11-23-2017 End: 01-21-2022 Tobacco smoking status NHIS Never smoked tobacco [facility] Start: 11-23-2017 End: 01-21-2022 Tobacco use and exposure Smokeless tobacco non-user [facility] Start: 09-04-2020 End: 09-30-2024 Alcohol intake Current non-drinker of alcohol (finding) [facility] Start: 06-03-2021 History SDOH Alcohol Frequency 2 [facility] Start: 06-03-2021 History SDOH Alcohol Std Drinks 1 [facility] Start: 06-03-2021 History SDOH Social Connections Phone 5 [facility] Start: 06-03-2021 History SDOH Social Connections Nondenominational 3 [facility] Start: 06-03-2021 History SDOH Social Connections Living 8 [facility] Start: 06-03-2021 History SDOH Stress 4 [facility] Start: 11-10-2019 Education 13 [facility] Start: 1995 Sex Assigned At Not on file [facility] Start: 05-28-2021 End: 01-21-2022 Exposure to SARS-CoV-2 (event) Not sure [facility] Start: 06-02-2021 End: 10-13-2022 History of Social function [facility] Start: 06-02-2021 End: 10-13-2022 Social connection and isolation panel [facility] Do you belong to any clubs or organizations such as christianity groups, unions, fraternal or athletic groups, or school groups? No [facility] Are you now , , , , never or living with a partner? Living with partner [facility] How often to you hav e a drink containing alcohol? Monthly or less [facility] How many standard dr inks containing alcohol do you have on a typical day? 1 or 2 [facility] How often do you hav e 6 or more drinks on 1 occasion? Never [facility] Start: 10-07-2017 How hard is it for y ou to pay for the very basics like food, housing, medical care, and heating Not hard at all [facility] Do you feel stress - tense, restless, nervous, or anxious, or unable to sleep at night because your mind is troubled all the time - these days [OSQ] Rather much [facility] (I/We) worried wheth er (my/our) food would run out before (I/we) got money to buy more. Never true [facility] Start: 02-05-2024 [facility] Goals Date Patient Goal Desired Activity /State Personal health goal Clinical Notes 11-10-2019 to 10-19-2024 Quick Notes - Brandan Puga MD - 10/19/2024 4:42 PM EDTPrenatal Quick Notes - Brandan Puga MD - 10/19/2024 4:42 PM EDTRBrandan martinez MD - 10/19/2024 4:40 PM EDT Note Date & Type Note Facility 10-19-2024 Progress note Formatting of t his note might be different from the original. RR- VB No. LOF No. CTXS No. Movement: present. Other c/o: No. Medication list reviewed. SENSITIVE EXAM: Sensitive exam not performed. Physical Exam See Flow Sheet Abd: soft, nontender, gravid Ext: edema: 1+ A/P 38w5d Estimated Date of Delivery: 10/28/24 ASSESSMENT/PLAN: 1. Supervision of high risk in third trimester ([facility]) - ICD9: V23.9, ICD10: O09.93 (primary diagnosis) - URINE OB DIP B/O 2. Other obesity affecting in third trimester ([facility]) - ICD9: 649.13, 278.00, ICD10: O99.213, E66.89 NST reactive, plan induction of labor at 39 weeks - URINE OB DIP B/O 3. Polyhydramnios in third trimester complication, single or unspecified fetus ([facility]) - ICD9: 657.03, ICD10: O40.3XX0 - URINE OB DIP B/O 4. 38 weeks gestation of ([facility]) - ICD9: V22.2, ICD10: Z3A.38 - URINE OB DIP B/O Brandan Puga MD [facility] 10-19-2024 Miscellaneous Notes RR- VB No. LOF No. CTXS No. Movement: present. Other c/o: No. Medication list reviewed. SENSITIVE EXAM: Sensitive exam not performed. Physical Exam See Flow Sheet Abd: soft, nontender, gravid Ext: edema: 1+ A/P 38w5d Estimated Date of Delivery: 10/28/24 ASSESSMENT/PLAN: 1. Supervision of high risk in third trimester ([facility]) - ICD9: V23.9, ICD10: O09.93 (primary diagnosis) - URINE OB DIP B/O 2. Other obesity affecting in third trimester ([facility]) - ICD9: 649.13, 278.00, ICD10: O99.213, E66.89 NST reactive, plan induction of labor at 39 weeks - URINE OB DIP B/O 3. Polyhydramnios in third trimester complication, single or unspecified fetus ([facility]) - ICD9: 657.03, ICD10: O40.3XX0 - URINE OB DIP B/O 4. 38 weeks gestation of ([facility]) - ICD9: V22.2, ICD10: Z3A.38 - URINE OB DIP B/O Brandan Puga MD documented in this encounter [facility] 10-19-2024 History of Presen t illness Narrative NST SUMMARY PROVIDER ASSESSMENT AND INTERPRETATION Valerio Nunez is a 29 year old female, , who is at 38w5d with an DONNELL of 10/28/2024, by Ultrasound dating method. Indications for NST: Obesity Baseline: 135 Variability: Moderate Accelerations: Present 15 X 15 Decelerations: None Contractions: TOCO: Irregular Interpretation: Reactive SIGNATURE: Brandan Puga MD documented in this encounter [facility] 10-19-2024 Instructions Dixie Stauffer MA - 10/19/2024 2:32 PM EDT SEQUENTIAL SCREENINGS The [facility] offers sequential screenings for women who are interested in screenings for chromosomal abnormalities and certain defects during a . The sequential screen combines ultrasound and blood tests to determine the risk of chromosomal abnormalities, including Down's Syndrome (Trisomy 21) and Trisomy 18, as well as open neural tube defects including spina bifida. Ultrasound examination is performed between 11 weeks and 13 weeks gestational age. Blood tests are drawn after the ultrasound and again later in the between 15 and 21 weeks gestational age. Please let your physician know if you are interested in this testing. It will require an appointment with our life support technician. This is not an ultrasound performed by a physician in our office during a routine visit. SIGNS AND SYMPTOMS OF LABOR 1. Contractions every 10 minutes or more often 2. Clear, pink, or brownish fluid (water) leaking from vagina 3. Feeling that baby is pushing down, pressure 4. Low, dull backache 5. Cramps that feel like a period 6. Cramps with or without diarrhea If you notice any of the above symptoms, contact our office at [phone] and ask to speak with a nurse. After hours, you can call doctors registry at [phone] OR call [facility] at [phone] and ask to have the doctor wet char conveyor tender paged. If you consider this an emergency, dial 9-1-3 or go to your nearest emergency department. NEED HELP? Are you dealing with a violent or abusive relationship? Are you a victim of rape or sexual assult? Call [facility] ([place]) 24 hour Crisis Hotline: 557.620.5906 or 210-156-8881. MANUAL Your Guide to a Healthy manual is now on-line. Visit [email or web address] [email or web address] to download your free copy documented in this encounter [facility] 10-14-2024 Note HNO ID: [id number] Author: DAPHNIE VILLAFUERTE, ? Service: ? Author Type: Patient Concrete Layer Type: Progress Notes Filed: 10/14/2024 07:20 Note Text: POPULATION HEALTH NAVIGATION OUTREACH Action/FYI No outreach done added pediarician via note Reason for Outreach Medicaid OB/Peds Care Gaps due: N/A Patient Contacted: Unable or unnecessary to reach patient: [place] photoengraver added Navigation Signature: Daphnie Villafuerte Population Health Navigator October 14, 2024 7:19 AM [facility] 10-14-2024 Note Patient Outreach (NE TNAV) VALERIO NUNEZ ([id number]) 1995 F Date Time Provider Department 10/14/24 DAPHNIE VILLAFUERTE During your visit today, we recorded the following information about you: Daphnie Villafuerte 10/14/2024 7:20 AM Signed POPULATION HEALTH NAVIGATION OUTREACH Action/FYI No outreach done added pediarician via note Reason for Outreach Medicaid OB/Peds Care Gaps due: N/A Patient Contacted: Unable or unnecessary to reach patient: photoengraver added Navigation Signature: Daphnie Villafuerte Population Health Navigator October 14, 2024 7:19 AM Allergies As of Date: 10/14/2024 (No Known Allergies) Date Reviewed: 10/07/2024 Reviewed by: Brandan Puga MD - Fully Assessed Reason for Visit: Population Health Navigation Outreach [3910] Cmt: to PCP/OB Prescriptions as of 10/14/2024 - aspirin, enteric coated (ECOTRIN LOW STRENGTH) 81 mg EC tablet Take 1 tablet by mouth once daily. - [id number]-Rfy-[id number] tab Take 1 tablet by mouth once daily. Problem List As Of Date 10/14/2024 Noted Resolved on oral contraceptive [O09.899, Z79.3]11/10/2019 08/01/2020 History of pelvic fracture [Z87.81] 11/10/2019 History of blood clots [Z86.718] 11/10/2019 Patient request for diagnostic testing [Z01.89] 11/10/2019 08/01/2020 History of pulmonary embolism [Z86.711] 03/18/2024 Nausea and vomiting during (HCC) [O21*03/18/2024 07/18/2024 Obesity affecting in first trimester *03/18/2024 with uncertain dates in first trimest*03/18/2024 08/12/2024 History of vacuum extraction assisted delivery *03/18/2024 Elevated glucose [R73.09] 08/12/2024 Polyhydramnios (HCC) [O40.9XX0] 09/02/2024 Excessive growth affecting management of *10/07/2024 Encounter Status:Closed by DAPHNIE VILLAFUERTE on 10/14/24 [facility] 10-13-2024 Note HNO ID: [id number] Author: KELSI HALL APRN.CNM Service: ? Author Type: Refinery Operator Light Ends Recovery Type: Progress Notes Filed: 10/13/2024 11:44 Note Text: NST SUMMARY PROVIDER ASSESSMENT AND INTERPRETATION Valerio Nunze is a 28 year old female, , who is at 37w6d with an DONNELL of 10/28/2024, by Ultrasound dating method. Indications for NST: Obesity and Polyhydramnios Baseline: 130 Variability: Moderate Accelerations: Present 15 X 15 Decelerations: None Contractions: TOCO: Irritability Interpretation: Reactive SIGNATURE: Kelsi Hall APRN.CNM [facility] 10-07-2024 Progress note Formatting of t his note might be different from the original. RR- VB No. LOF No. CTXS No. Movement: present. Other c/o: No. Medication list reviewed. SENSITIVE EXAM: Sensitive exam not performed. Physical Exam See Flow Sheet Abd: soft, nontender, gravid Ext: edema: Trace A/P 37w0d Estimated Date of Delivery: 10/28/24 Assessment & Plan Supervision of high risk in third trimester (HCC) Orders: URINE OB DIP B/O Polyhydramnios in third trimester complication, single or unspecified fetus (HCC) Orders: URINE OB DIP B/O Other obesity affecting in third trimester (HCC) Orders: URINE OB DIP B/O 37 weeks gestation of ([facility]) Orders: URINE OB DIP B/O Excessive growth affecting management of in third trimester, single or unspecified fetus (HCC) I discussed with the patient risk benefits alternatives to induction of labor at 39 weeks versus expectant management versus section. Discussed with her that medically indicated sections or when the estimated weight is above 5000 g or with gestational diabetes at 4500 g. At 39 to 40 weeks we would not expect the estimated weight to be above these parameters, however we also discussed range of error of the measurement. Discussed with the patient we could consider sweeping membranes at 37 and 38 weeks and then induction of labor at 39 weeks. We also reviewed that we would likely be very hesitant to perform an instrumental delivery with estimated weight above the 99th percentile. Patient's questions were answered to her satisfaction. She states she and her partner would strongly prefer vaginal delivery. At this point f/u in 1 week. Membrane sweep attempted today but difficult due to station, kick counts. NST done. Brandan Puga M.D. [facility] 10-07-2024 Miscellaneous Notes RR- VB No. LOF No. CTXS No. Movement: present. Other c/o: No. Medication list reviewed. SENSITIVE EXAM: Sensitive exam not performed. Physical Exam See Flow Sheet Abd: soft, nontender, gravid Ext: edema: Trace A/P 37w0d Estimated Date of Delivery: 10/28/24 Assessment & Plan Supervision of high risk in third trimester (HCC) Orders: URINE OB DIP B/O Polyhydramnios in third trimester complication, single or unspecified fetus (HCC) Orders: URINE OB DIP B/O Other obesity affecting in third trimester ([facility]) Orders: URINE OB DIP B/O 37 weeks gestation of ([facility]) Orders: URINE OB DIP B/O Excessive growth affecting management of in third trimester, single or unspecified fetus (HCC) I discussed with the patient risk benefits alternatives to induction of labor at 39 weeks versus expectant management versus section. Discussed with her that medically indicated sections or when the estimated weight is above 5000 g or with gestational diabetes at 4500 g. At 39 to 40 weeks we would not expect the estimated weight to be above these parameters, however we also discussed range of error of the measurement. Discussed with the patient we could consider sweeping membranes at 37 and 38 weeks and then induction of labor at 39 weeks. We also reviewed that we would likely be very hesitant to perform an instrumental delivery with estimated weight above the 99th percentile. Patient's questions were answered to her satisfaction. She states she and her partner would strongly prefer vaginal delivery. At this point f/u in 1 week. Membrane sweep attempted today but difficult due to station, kick counts. NST done. Brandan Puga M.D. documented in this encounter [facility] 10-07-2024 Note HNO ID: [id number] Author: BRANDAN PUGA MD Service: ? Author Type: Physician Type: Progress Notes Filed: 10/07/2024 10:12 Note Text: NST SUMMARY PROVIDER ASSESSMENT AND INTERPRETATION Valerio Nunez is a 28 year old female, , who is at 37w0d with an DONNELL of 10/28/2024, by Ultrasound dating method. Indications for NST: obesity Baseline: 135 Variability: Moderate Accelerations: Present 15 X 15 Decelerations: None Contractions: TOCO: no regular ctxs Interpretation: Reactive SIGNATURE: Brandan Puga MD [facility] 10-07-2024 History of Presen t illness Narrative NST SUMMARY PROVIDER ASSESSMENT AND INTERPRETATION Valerio Nunez is a 28 year old female, , who is at 37w0d with an DONNELL of 10/28/2024, by Ultrasound dating method. Indications for NST: obesity Baseline: 135 Variability: Moderate Accelerations: Present 15 X 15 Decelerations: None Contractions: TOCO: no regular ctxs Interpretation: Reactive SIGNATURE: Brandan Puga MD documented in this encounter [facility] 10-07-2024 Instructions Dixie Stauffer MA - 10/07/2024 8:59 AM EDT SEQUENTIAL SCREENINGS The [facility] offers sequential screenings for women who are interested in screenings for chromosomal abnormalities and certain defects during a . The sequential screen combines ultrasound and blood tests to determine the risk of chromosomal abnormalities, including Down's Syndrome (Trisomy 21) and Trisomy 18, as well as open neural tube defects including spina bifida. Ultrasound examination is performed between 11 weeks and 13 weeks gestational age. Blood tests are drawn after the ultrasound and again later in the between 15 and 21 weeks gestational age. Please let your physician know if you are interested in this testing. It will require an appointment with our life support technician. This is not an ultrasound performed by a physician in our office during a routine visit. SIGNS AND SYMPTOMS OF LABOR 1. Contractions every 10 minutes or more often 2. Clear, pink, or brownish fluid (water) leaking from vagina 3. Feeling that baby is pushing down, pressure 4. Low, dull backache 5. Cramps that feel like a period 6. Cramps with or without diarrhea If you notice any of the above symptoms, contact our office at [phone] and ask to speak with a nurse. After hours, you can call doctors registry at [phone] OR call [facility] at [phone] and ask to have the doctor wet char conveyor tender paged. If you consider this an emergency, dial 9-1-2 or go to your nearest emergency department. NEED HELP? Are you dealing with a violent or abusive relationship? Are you a victim of rape or sexual assult? Call [facility] ([facility] 24 hour Crisis Hotline: 442.865.1047 or 028-731-3838. MANUAL Your Guide to a Healthy manual is now on-line. Visit [email or web address] ancyGuide to download your free copy documented in this encounter [facility] 10-03-2024 Telephone encounter Note Message sent to trudy Phelps. Liset Whiting RN [facility] 10-03-2024 Miscellaneous Notes Message sent to trudy Phelps. Liset Whiting RN documented in this encounter [facility] 09-30-2024 Note Indication Evaluation of growth Maternal obesity, BMI >35 Impression REMOTE READ - Single, live, intrauterine . - presentation is cephalic. - The biometry is measuring ahead of the assigned gestational dating. - The EFW is 3611 g, at the 98%. AC is at the >99%. - Amniotic fluid volume is normal amount with an MVP of 6.6 cm and ANA of 18.2 cm. - The placenta is anterior. - No malformations visualized on a limited survey as detailed below. Recommendations Additional follow-up as clinically indicated. Maternal Assessment Height 165 cm Height (ft) 5 ft Height (in) 5 in Physical Exam Initial weight (lb) 226 lb Initial BMI 37.61 kg/m Method Transabdominal ultrasound examination. View: Adequate visualization Lam . Number of fetuses: 1 Dating LMP on: 01/11/2024 GA by LMP 37 w + 4 d DONNELL by LMP: 2024 GA by prior assessment 36 w + 0 d DONNELL by prior assessment: 10/28/2024 Ultrasound examination on: 09/30/2024 GA by U/S based upon: AC, BPD, Femur GA by U/S 38 w + 2 d DONNELL by U/S: 10/12/2024 Assigned: based on stated DONNELL, selected on 09/02/2024 Assigned GA 36 w + 0 d Assigned DONNELL: 10/28/2024 General Evaluation Cardiac activity present. FHR 126 bpm. movements: present. Presentation: cephalic Placenta: Placental site: anterior Umbilical cord: Cord vessels: 3 vessel cord. Insertion site: normal insertion Amniotic fluid: Amount of AF: normal amount. MVP 6.6 cm. ANA 18.2 cm. Q1 6.6 cm, Q2 5.3 cm, Q3 1.3 cm, Q4 5.0 cm Growth Overview Exam date GA BPD (mm) HC (mm) AC (mm) FL (mm) HL (mm) EFW (g) 06/17/2024 21w 0d 52.5 83% 195.5 72% 174.5 84% 35.8 77% 34.6 74% 459 87% 09/02/2024 32w 0d 89 >99% 329.5 98% 313.7 >99% 63.1 81% 2537 99% 09/30/2024 36w 0d 97.2 >99% 350.4 96% 355.8 >99% 71 84% 3611 98% Biometry Standard BPD 97.2 mm 39w 5d >99% Hadlock OFD 123.1 mm -/- 94% Nicolaides HC 350.4 mm -/- 96% Krish AC 355.8 mm 39w 3d >99% Hadlock Femur 71.0 mm 35w 6d 84% Krish EFW 3,611 g 40w 0d 98% Hadlock EFW (lb) 7 lb EFW (oz) 15 oz EFW by: Hadlock (HC-AC-FL) Extended Older Adult Social Work Specialist 7.1 mm Extremities / Bony Struc FL / HC 0.20 Other Structures FHR 126 bpm Anatomy Lateral ventricles: normal Cavum septi pellucidi: normal Cerebellum: normal Cisterna magna: normal 4-chamber view: normal RVOT view: normal LVOT view: normal 3-vessel view: normal Heart / Thorax Situs: situs solitus (normal) Diaphragm: normal Stomach: normal Kidneys: normal Bladder: normal sex: male Wants to know sex: yes Performed By: Alice Kidd RDMS Read By: Kacy Warner M.D. [facility] 09-30-2024 Progress note Formatting of t his note might be different from the original. S: Valerio Nunez is a 28 year old female who presents at 36 weeks gestation for a routine visit. Just completed growth US- awaiting final report. Patient concerned over current size of baby being approximately 7 lbs. 15 oz and only 36 weeks gestation. First delivery was difficult and baby weighed 7 lbs. 11oz. Patient unsure of MOD at this time. Denies headache, visual changes, chest pain, shortness of breath, vaginal bleeding, leakage of fluid, or dysuria. O: See flow sheet Gen: No apparent distress Abd: Gravid, non tender TAUS- confirms vertex position ASSESSMENT/PLAN: 1. 36 weeks gestation of 2. Supervision of high risk in third trimester 3. Polyhydramnios in third trimester complication, single or unspecified fetus 4. Other obesity affecting in third trimester - Reviewed IOL vs Primary elective C/S at 39 weeks gestation. Patient unsure at this time and would like to discuss with FOB - URINE OB DIP B/O - ROUTINE, GROUP B STREPTOCOCCUS BY PCR - PTL precautions reviewed and when to call office - RTO 1 week for NST/ TIFFANY - meet with physician to finalize MOD Kelsi Hall APRN.CNM [facility] 09-30-2024 Miscellaneous Notes S: Valerio Nunez is a 28 year old female who presents at 36 weeks gestation for a routine visit. Just completed growth US- awaiting final report. Patient concerned over current size of baby being approximately 7 lbs. 15 oz and only 36 weeks gestation. First delivery was difficult and baby weighed 7 lbs. 11oz. Patient unsure of MOD at this time. Denies headache, visual changes, chest pain, shortness of breath, vaginal bleeding, leakage of fluid, or dysuria. O: See flow sheet Gen: No apparent distress Abd: Gravid, non tender TAUS- confirms vertex position ASSESSMENT/PLAN: 1. 36 weeks gestation of 2. Supervision of high risk in third trimester 3. Polyhydramnios in third trimester complication, single or unspecified fetus 4. Other obesity affecting in third trimester - Reviewed IOL vs Primary elective C/S at 39 weeks gestation. Patient unsure at this time and would like to discuss with FOB - URINE OB DIP B/O - ROUTINE, GROUP B STREPTOCOCCUS BY PCR - PTL precautions reviewed and when to call office - RTO 1 week for NST/ TIFFANY - meet with physician to finalize MOD Kelsi Hall APRN.CNM documented in this encounter [facility] 09-30-2024 Instructions Barbara Claire MA - 09/30/2024 9:44 AM EDT SEQUENTIAL SCREENINGS The [facility] offers sequential screenings for women who are interested in screenings for chromosomal abnormalities and certain defects during a . The sequential screen combines ultrasound and blood tests to determine the risk of chromosomal abnormalities, including Down's Syndrome (Trisomy 21) and Trisomy 18, as well as open neural tube defects including spina bifida. Ultrasound examination is performed between 11 weeks and 13 weeks gestational age. Blood tests are drawn after the ultrasound and again later in the between 15 and 21 weeks gestational age. Please let your physician know if you are interested in this testing. It will require an appointment with our life support technician. This is not an ultrasound performed by a physician in our office during a routine visit. SIGNS AND SYMPTOMS OF LABOR 1. Contractions every 10 minutes or more often 2. Clear, pink, or brownish fluid (water) leaking from vagina 3. Feeling that baby is pushing down, pressure 4. Low, dull backache 5. Cramps that feel like a period 6. Cramps with or without diarrhea If you notice any of the above symptoms, contact our office at [phone] and ask to speak with a nurse. After hours, you can call doctors registry at [phone] OR call [facility] at [phone] and ask to have the doctor wet char conveyor tender paged. If you consider this an emergency, dial 7-6-1 or go to your nearest emergency department. NEED HELP? Are you dealing with a violent or abusive relationship? Are you a victim of rape or sexual assult? Call [facility] ([facility] 24 hour Crisis Hotline: 147.368.4112 or 047-586-6854. MANUAL Your Guide to a Healthy manual is now on-line. Visit [email or web address] [email or web address] to download your free copy documented in this encounter [facility] 09-23-2024 Progress note Formatting of t his note might be different from the original. S: Valerio Nunez is a 28 year old female who presents at 10/28/2024, by Ultrasound for a routine visit. Denies headache, visual changes, chest pain, shortness of breath, vaginal bleeding, leakage of fluid, or dysuria. Feeling well, no complaints. Good movement, No contractions O: See flow sheet Gen: No apparent distress Abd: Gravid, nontender Reactive NST US scheduled next week ASSESSMENT/PLAN: 1. Supervision of high risk in third trimester ([facility]) - ICD9: V23.9, ICD10: O09.93 (primary diagnosis) - URINE OB DIP B/O 2. Polyhydramnios in third trimester complication, single or unspecified fetus ([facility]) - ICD9: 657.03, ICD10: O40.3XX0 NST weekly - URINE OB DIP B/O 3. Other obesity affecting in third trimester ([facility]) - ICD9: 649.13, 278.00, ICD10: O99.213, E66.89 Growth next week NST weekly - URINE OB DIP B/O 4. 35 weeks gestation of ([facility]) - ICD9: V22.2, ICD10: Z3A.35 - URINE OB DIP B/O Liset Castañeda MD [facility] 09-23-2024 Miscellaneous Notes S: Valerio Nunez is a 28 year old female who presents at 10/28/2024, by Ultrasound for a routine visit. Denies headache, visual changes, chest pain, shortness of breath, vaginal bleeding, leakage of fluid, or dysuria. Feeling well, no complaints. Good movement, No contractions O: See flow sheet Gen: No apparent distress Abd: Gravid, nontender Reactive NST US scheduled next week ASSESSMENT/PLAN: 1. Supervision of high risk in third trimester ([facility]) - ICD9: V23.9, ICD10: O09.93 (primary diagnosis) - URINE OB DIP B/O 2. Polyhydramnios in third trimester complication, single or unspecified fetus ([facility]) - ICD9: 657.03, ICD10: O40.3XX0 NST weekly - URINE OB DIP B/O 3. Other obesity affecting in third trimester ([facility]) - ICD9: 649.13, 278.00, ICD10: O99.213, E66.89 Growth next week NST weekly - URINE OB DIP B/O 4. 35 weeks gestation of ([facility]) - ICD9: V22.2, ICD10: Z3A.35 - URINE OB DIP B/O Liset Castañeda MD documented in this encounter [facility] 09-23-2024 Note HNO ID: [id number] Author: LISET CASTAÑEDA MD Service: ? Author Type: Physician Type: Progress Notes Filed: 09/23/2024 09:35 Note Text: NST SUMMARY PROVIDER ASSESSMENT AND INTERPRETATION Indications for NST: Obesity and Polyhydramnios Baseline: 130 Variability: Moderate Accelerations: Present 15 X 15 Decelerations: None Interpretation: Reactive SIGNATURE: Liset Castañeda MD [facility] [place] 09-23-2024 History of Presen t illness Narrative NST SUMMARY PROVIDER ASSESSMENT AND INTERPRETATION Indications for NST: Obesity and Polyhydramnios Baseline: 130 Variability: Moderate Accelerations: Present 15 X 15 Decelerations: None Interpretation: Reactive SIGNATURE: Liset Castañeda MD documented in this encounter [facility] 09-23-2024 Lein Carpenter MA - 09/23/2024 8:47 AM EDT SEQUENTIAL SCREENINGS The [facility] offers sequential screenings for women who are interested in screenings for chromosomal abnormalities and certain defects during a . The sequential screen combines ultrasound and blood tests to determine the risk of chromosomal abnormalities, including Down's Syndrome (Trisomy 21) and Trisomy 18, as well as open neural tube defects including spina bifida. Ultrasound examination is performed between 11 weeks and 13 weeks gestational age. Blood tests are drawn after the ultrasound and again later in the between 15 and 21 weeks gestational age. Please let your physician know if you are interested in this testing. It will require an appointment with our life support technician. This is not an ultrasound performed by a physician in our office during a routine visit. SIGNS AND SYMPTOMS OF LABOR 1. Contractions every 10 minutes or more often 2. Clear, pink, or brownish fluid (water) leaking from vagina 3. Feeling that baby is pushing down, pressure 4. Low, dull backache 5. Cramps that feel like a period 6. Cramps with or without diarrhea If you notice any of the above symptoms, contact our office at [phone] and ask to speak with a nurse. After hours, you can call doctors registry at [phone] OR call [facility] at [phone] and ask to have the doctor wet char conveyor tender paged. If you consider this an emergency, dial 91-2 or go to your nearest emergency department. NEED HELP? Are you dealing with a violent or abusive relationship? Are you a victim of rape or sexual assult? Call [facility] ([place]) 24 hour Crisis Hotline: 199.926.8215 or 151-395-0182. MANUAL Your Guide to a Healthy manual is now on-line. Visit [email or web address] [email or web address] to download your free copy documented in this encounter [facility] 09-16-2024 Note HNO ID: [id number] Author: YUMIKO CARVER MD Service: ? Author Type: Physician Type: Progress Notes Filed: 09/16/2024 14:31 Note Text: NST SUMMARY PROVIDER ASSESSMENT AND INTERPRETATION Valerio Nunez is a 28 year old female, , who is at 34w0d with an DONNELL of 10/28/2024, by Ultrasound dating method. Indications for NST: Obesity Baseline: 130 Variability: Moderate Accelerations: Present 15 X 15 Decelerations: None Contractions: TOCO: None Interpretation: Reactive SIGNATURE: Yumiko Carver MD [facility] [place] 09-16-2024 History of Presen t illness Narrative NST SUMMARY PROVIDER ASSESSMENT AND INTERPRETATION Valerio Nunez is a 28 year old female, , who is at 34w0d with an DONNELL of 10/28/2024, by Ultrasound dating method. Indications for NST: Obesity Baseline: 130 Variability: Moderate Accelerations: Present 15 X 15 Decelerations: None Contractions: TOCO: None Interpretation: Reactive SIGNATURE: Yumiko Carver MD documented in this encounter [facility] 09-16-2024 Progress note Formatting of t his note might be different from the original. KJ - S: Valerio denies LOF, contractions or vaginal bleeding. O: 34w0d, see flow sheet SENSITIVE EXAM: Sensitive exam not performed. A/P: Assessment & Plan Polyhydramnios in third trimester complication, single or unspecified fetus (HCC) Repeat US in 2 weeks Orders: URINE OB DIP B/O Other obesity affecting in third trimester (HCC) NST today Orders: URINE OB DIP B/O 34 weeks gestation of (HCC) Orders: URINE OB DIP B/O Reviewed PTL & FM precautions Yumiko Carver MD [facility] 09-16-2024 Miscellaneous Notes KJ - S: Valerio denies LOF, contractions or vaginal bleeding. O: 34w0d, see flow sheet SENSITIVE EXAM: Sensitive exam not performed. A/P: Assessment & Plan Polyhydramnios in third trimester complication, single or unspecified fetus (HCC) Repeat US in 2 weeks Orders: URINE OB DIP B/O Other obesity affecting in third trimester (HCC) NST today Orders: URINE OB DIP B/O 34 weeks gestation of (HCC) Orders: URINE OB DIP B/O Reviewed PTL & FM precautions Yumiko Carver MD documented in this encounter [facility] 09-16-2024 Instructions Dixie Stauffer MA - 09/16/2024 1:50 PM EDT SEQUENTIAL SCREENINGS The [facility] offers sequential screenings for women who are interested in screenings for chromosomal abnormalities and certain defects during a . The sequential screen combines ultrasound and blood tests to determine the risk of chromosomal abnormalities, including Down's Syndrome (Trisomy 21) and Trisomy 18, as well as open neural tube defects including spina bifida. Ultrasound examination is performed between 11 weeks and 13 weeks gestational age. Blood tests are drawn after the ultrasound and again later in the between 15 and 21 weeks gestational age. Please let your physician know if you are interested in this testing. It will require an appointment with our life support technician. This is not an ultrasound performed by a physician in our office during a routine visit. SIGNS AND SYMPTOMS OF LABOR 1. Contractions every 10 minutes or more often 2. Clear, pink, or brownish fluid (water) leaking from vagina 3. Feeling that baby is pushing down, pressure 4. Low, dull backache 5. Cramps that feel like a period 6. Cramps with or without diarrhea If you notice any of the above symptoms, contact our office at [phone] and ask to speak with a nurse. After hours, you can call doctors registry at [phone] OR call [facility] at [phone] and ask to have the doctor wet char conveyor tender paged. If you consider this an emergency, dial 9-1-3 or go to your nearest emergency department. NEED HELP? Are you dealing with a violent or abusive relationship? Are you a victim of rape or sexual assult? Call [facility] ([place]) 24 hour Crisis Hotline: 300.590.8299 or 622-613-1643. MANUAL Your Guide to a Healthy manual is now on-line. Visit [email or web address] [email or web address] to download your free copy documented in this encounter [facility] 09-02-2024 Progress note Formatting of t his note might be different from the original. RR- VB No. LOF No. CTXS No. Movement: present. Other c/o: occas ruq pain, resolves on its own Medication list reviewed. SENSITIVE EXAM: Sensitive exam not performed. Physical Exam See Flow Sheet Abd: soft, nontender, gravid Ext: edema: 1+ A/P 32w0d Estimated Date of Delivery: 10/28/24 Assessment & Plan Supervision of high risk in third trimester ([facility]) Orders: NON-STRESS TEST; Standing Other obesity affecting in third trimester ([facility]) Orders: NON-STRESS TEST; Standing 32 weeks gestation of ([facility]) Brandan Puga M.D. [facility] 09-02-2024 Miscellaneous Notes RR- VB No. LOF No. CTXS No. Movement: present. Other c/o: occas ruq pain, resolves on its own Medication list reviewed. SENSITIVE EXAM: Sensitive exam not performed. Physical Exam See Flow Sheet Abd: soft, nontender, gravid Ext: edema: 1+ A/P 32w0d Estimated Date of Delivery: 10/28/24 Assessment & Plan Supervision of high risk in third trimester ([facility]) Orders: NON-STRESS TEST; Standing Other obesity affecting in third trimester ([facility]) Orders: NON-STRESS TEST; Standing 32 weeks gestation of ([facility]) Brandan Puga M.D. documented in this encounter [facility] 09-02-2024 Note Indication Evaluation of growth, Evaluation of well-being Maternal obesity, BMI >35 Impression - Single, live, intrauterine . - presentation is cephalic. - The biometry is accelerated for the assigned gestational dating. - The EFW is 2537 g, at the 99%. AC is at the >99%. - The amniotic fluid volume is mild polyhydramnios with an MVP of 8.2 cm and an ANA of 22.8 cm. - The placenta is anterior, fundal. - BPP 8/8. - No malformations visualized on a limited survey as detailed below. Ultrasound Consultation Mild polyhydramnios was identified. Polyhydramnios is typically defined by an amniotic fluid index > 24 cm or a MVP > 8 cm. The leading diagnosis for increased fluid in the third trimester is idiopathic (i.e. normal variant). The differential diagnosis also includes maternal conditions such as diabetes mellitus or insulin resistance. Rare causes include hydrops, absence of swallowing which can be secondary to neurologic conditions or GI obstruction such as esophageal atresia or duodenal atresia. There is no evidence of any structural abnormalities on ultrasound. WIth any ultrasound there is the potential for non-visualized malformations. Recommendations Growth in four weeks Maternal Assessment Height 165 cm Height (ft) 5 ft Height (in) 5 in Physical Exam Initial weight (lb) 226 lb Initial BMI 37.61 kg/m Maternal assessment other: 2 Para 1 REMOTE READ Method Transabdominal ultrasound examination. View: Suboptimal view: limited by position Lam . Number of fetuses: 1 Dating LMP on: 01/11/2024 GA by LMP 33 w + 4 d DONNELL by LMP: 2024 GA by prior assessment 32 w + 0 d DONNELL by prior assessment: 10/28/2024 Ultrasound examination on: 09/02/2024 GA by U/S based upon: AC, BPD, Femur, HC GA by U/S 35 w + 1 d DONNELL by U/S: 10/06/2024 Assigned: based on stated DONNELL, selected on 09/02/2024 Assigned GA 32 w + 0 d Assigned DONNELL: 10/28/2024 General Evaluation Cardiac activity present. FHR 141 bpm. movements: present. Presentation: cephalic Placenta: Placental site: anterior, fundal Umbilical cord: Cord vessels: 3 vessel cord Amniotic fluid: Amount of AF: mild polyhydramnios. MVP 8.2 cm. ANA 22.8 cm. Q1 6.0 cm, Q2 8.2 cm, Q3 2.4 cm, Q4 6.2 cm Biophysical Profile 2: breathing movements 2: Gross body movements 2: tone 2: Amniotic fluid volume 8/8 Biophysical profile score Growth Overview Exam date GA BPD (mm) HC (mm) AC (mm) FL (mm) HL (mm) EFW (g) 06/17/2024 21w 0d 52.5 83% 195.5 72% 174.5 84% 35.8 77% 34.6 74% 459 87% 09/02/2024 32w 0d 89 >99% 329.5 98% 313.7 >99% 63.1 81% 2537 99% Biometry Standard BPD 89.0 mm 36w 0d >99% Hadlock OFD 117.6 mm -/- 98% Nicolaides HC 329.5 mm 36w 6d 98% Krish AC 313.7 mm 35w 2d >99% Hadlock Femur 63.1 mm 32w 3d 81% Krish EFW 2,537 g 34w 5d 99% Hadlock EFW (lb) 5 lb EFW (oz) 9 oz EFW by: Hadlock (HC-AC-FL) Extended Older Adult Social Work Specialist 7.4 mm Extremities / Bony Struc FL / HC 0.19 Other Structures FHR 141 bpm Anatomy Lateral ventricles: normal Cavum septi pellucidi: normal Cerebellum: normal Cisterna magna: normal 4-chamber view: suboptimally visualized RVOT view: suboptimally visualized LVOT view: suboptimally visualized 3-vessel view: suboptimally visualized Heart / Thorax Situs: situs solitus (normal) Diaphragm: normal Stomach: normal Kidneys: normal Bladder: normal sex: male Wants to know sex: yes Performed By: Mattie Berger RDMS, RVT Read By: Aziza Hurtado M.D. [facility] 09-02-2024 Instructions Leni Liz MA - 09/02/2024 2:15 PM EDT SEQUENTIAL SCREENINGS The [facility] offers sequential screenings for women who are interested in screenings for chromosomal abnormalities and certain defects during a . The sequential screen combines ultrasound and blood tests to determine the risk of chromosomal abnormalities, including Down's Syndrome (Trisomy 21) and Trisomy 18, as well as open neural tube defects including spina bifida. Ultrasound examination is performed between 11 weeks and 13 weeks gestational age. Blood tests are drawn after the ultrasound and again later in the between 15 and 21 weeks gestational age. Please let your physician know if you are interested in this testing. It will require an appointment with our life support technician. This is not an ultrasound performed by a physician in our office during a routine visit. SIGNS AND SYMPTOMS OF LABOR 1. Contractions every 10 minutes or more often 2. Clear, pink, or brownish fluid (water) leaking from vagina 3. Feeling that baby is pushing down, pressure 4. Low, dull backache 5. Cramps that feel like a period 6. Cramps with or without diarrhea If you notice any of the above symptoms, contact our office at [phone] and ask to speak with a nurse. After hours, you can call [employer] [facility] at [phone] OR call [facility] at [phone] and ask to have the doctor wet char conveyor tender paged. If you consider this an emergency, dial 9-1-4 or go to your nearest emergency department. NEED HELP? Are you dealing with a violent or abusive relationship? Are you a victim of rape or sexual assult? Call [facility] ([place]) 24 hour Crisis Hotline: 374.521.1695 or 004-925-1828. MANUAL Your Guide to a Healthy manual is now on-line. Visit [email or web address] [email or web address] to download your free copy documented in this encounter [facility] 08-26-2024 Progress note Formatting of t his note might be different from the original. S: Valerio Nunez is a 28 year old female who presents at 10/28/2024, by Ultrasound for a routine visit. Denies headache, visual changes, chest pain, shortness of breath, vaginal bleeding, leakage of fluid, or dysuria. Feeling well, no complaints. Good movement, No contractions O: See flow sheet Gen: No apparent distress Abd: Gravid, nontender NSTs starting next week Planning trip to [place] next week. Discussed travel precautions ASSESSMENT/PLAN: 1. 31 weeks gestation of ([facility]) - ICD9: V22.2, ICD10: Z3A.31 (primary diagnosis) 2. Supervision of high risk in third trimester ([facility]) - ICD9: V23.9, ICD10: O09.93 3. Other obesity affecting in third trimester ([facility]) - ICD9: 649.13, 278.00, ICD10: O99.213, E66.89 NSTs at 32 weeks Growth q 4 Liset Castañeda MD [facility] 08-26-2024 Miscellaneous Notes S: Valerio Nunez is a 28 year old female who presents at 10/28/2024, by Ultrasound for a routine visit. Denies headache, visual changes, chest pain, shortness of breath, vaginal bleeding, leakage of fluid, or dysuria. Feeling well, no complaints. Good movement, No contractions O: See flow sheet Gen: No apparent distress Abd: Gravid, nontender NSTs starting next week Planning trip to [place] next week. Discussed travel precautions ASSESSMENT/PLAN: 1. 31 weeks gestation of ([facility]) - ICD9: V22.2, ICD10: Z3A.31 (primary diagnosis) 2. Supervision of high risk in third trimester ([facility]) - ICD9: V23.9, ICD10: O09.93 3. Other obesity affecting in third trimester ([facility]) - ICD9: 649.13, 278.00, ICD10: O99.213, E66.89 NSTs at 32 weeks Growth q 4 Liset Castañeda MD documented in this encounter [facility] 08-26-2024 Instructions Barbara Claire MA - 08/26/2024 9:32 AM EDT SEQUENTIAL SCREENINGS The [facility] offers sequential screenings for women who are interested in screenings for chromosomal abnormalities and certain defects during a . The sequential screen combines ultrasound and blood tests to determine the risk of chromosomal abnormalities, including Down's Syndrome (Trisomy 21) and Trisomy 18, as well as open neural tube defects including spina bifida. Ultrasound examination is performed between 11 weeks and 13 weeks gestational age. Blood tests are drawn after the ultrasound and again later in the between 15 and 21 weeks gestational age. Please let your physician know if you are interested in this testing. It will require an appointment with our life support technician. This is not an ultrasound performed by a physician in our office during a routine visit. SIGNS AND SYMPTOMS OF LABOR 1. Contractions every 10 minutes or more often 2. Clear, pink, or brownish fluid (water) leaking from vagina 3. Feeling that baby is pushing down, pressure 4. Low, dull backache 5. Cramps that feel like a period 6. Cramps with or without diarrhea If you notice any of the above symptoms, contact our office at [phone] and ask to speak with a nurse. After hours, you can call doctors registry at [phone] OR call [facility] at [phone] and ask to have the doctor wet char conveyor tender paged. If you consider this an emergency, dial 9-1-1 or go to your nearest emergency department. NEED HELP? Are you dealing with a violent or abusive relationship? Are you a victim of rape or sexual assult? Call [facility] ([place]) 24 hour Crisis Hotline: 285.135.9400 or 435-448-1947. MANUAL Your Guide to a Healthy manual is now on-line. Visit [email or web address] to download your free copy documented in this encounter [facility] 08-12-2024 Progress note Formatting of t his note might be different from the original. S: Valerio Nunez is a 28 year old female who presents at 29 weeks gestation for a routine visit. Positive movements. Increased fatigue. Denies headache, visual changes, chest pain, shortness of breath, vaginal bleeding, leakage of fluid, or dysuria. Feeling well, no complaints. O: See flow sheet Gen: No apparent distress Abd: Gravid, nontender ASSESSMENT/PLAN: 1. Supervision of high risk in third trimester 2. 29 weeks gestation of 3. Other obesity affecting in third trimester 4. History of vacuum extraction assisted delivery 5. History of pulmonary embolism 6. Need for vaccination - Pregravid BMI 38 - Growth US at 32 weeks - Start NST's at 36 weeks - Continue vitamin / ASA daily - Passed 1 hour GCT - RTO 2 weeks or sooner if needed Kelsi Hall APRN.CNM [facility] 08-12-2024 Miscellaneous Notes S: Valerio Nunez is a 28 year old female who presents at 29 weeks gestation for a routine visit. Positive movements. Increased fatigue. Denies headache, visual changes, chest pain, shortness of breath, vaginal bleeding, leakage of fluid, or dysuria. Feeling well, no complaints. O: See flow sheet Gen: No apparent distress Abd: Gravid, nontender ASSESSMENT/PLAN: 1. Supervision of high risk in third trimester 2. 29 weeks gestation of 3. Other obesity affecting in third trimester 4. History of vacuum extraction assisted delivery 5. History of pulmonary embolism 6. Need for vaccination - Pregravid BMI 38 - Growth US at 32 weeks - Start NST's at 36 weeks - Continue vitamin / ASA daily - Passed 1 hour GCT - RTO 2 weeks or sooner if needed Kelsi Hall APRN.CNM documented in this encounter [facility] 08-12-2024 Note HNO ID: [id number] Author: JESUS MANUEL PABON MA Service: ? Author Type: Data Support Analyst Type: Progress Notes Filed: 08/12/2024 12:35 Note Text: Patient identified by name and date of . Valerio Nunez presents today for a vaccination of Tdap. Patient denies an allergy to latex: yes Patient denies a severe (life-threatening) allergy to a previous dose of Tdap, DTP, DTaP, DT or Td vaccine. Yes Patient denies history of epilepsy or neurological problems: Yes Patient is afebrile and denies being moderately or severely ill: Yes Patient denies history of Guillain-[place] Syndrome (a severe paralytic illness): Yes Tdap Adacel injection was given without incident. See immunizations for details of immunizations administered today. VIS sheet provided: Yes Provider Kelsi Hall APRN CNM was present in office at time of injection. Jesus Manuel Pabon MA [facility] [place] 08-12-2024 History of Presen t illness Narrative Patient identified by name and date of . Valerio Nunez presents today for a vaccination of Tdap. Patient denies an allergy to latex: yes Patient denies a severe (life-threatening) allergy to a previous dose of Tdap, DTP, DTaP, DT or Td vaccine. Yes Patient denies history of epilepsy or neurological problems: Yes Patient is afebrile and denies being moderately or severely ill: Yes Patient denies history of Guillain-[place] Syndrome (a severe paralytic illness): Yes Tdap Adacel injection was given without incident. See immunizations for details of immunizations administered today. VIS sheet provided: Yes Provider Kelsi Hall APRN CNM was present in office at time of injection. Jesus Manuel Pabon MA documented in this encounter [facility] 08-12-2024 Instructions Jesus Manuel Pabon MA - 08/12/2024 9:45 AM EDT SEQUENTIAL SCREENINGS The [facility] offers sequential screenings for women who are interested in screenings for chromosomal abnormalities and certain defects during a . The sequential screen combines ultrasound and blood tests to determine the risk of chromosomal abnormalities, including Down's Syndrome (Trisomy 21) and Trisomy 18, as well as open neural tube defects including spina bifida. Ultrasound examination is performed between 11 weeks and 13 weeks gestational age. Blood tests are drawn after the ultrasound and again later in the between 15 and 21 weeks gestational age. Please let your physician know if you are interested in this testing. It will require an appointment with our life support technician. This is not an ultrasound performed by a physician in our office during a routine visit. SIGNS AND SYMPTOMS OF LABOR 1. Contractions every 10 minutes or more often 2. Clear, pink, or brownish fluid (water) leaking from vagina 3. Feeling that baby is pushing down, pressure 4. Low, dull backache 5. Cramps that feel like a period 6. Cramps with or without diarrhea If you notice any of the above symptoms, contact our office at [phone] and ask to speak with a nurse. After hours, you can call doctors registry at [phone] OR call [facility] at [phone] and ask to have the doctor wet char conveyor tender paged. If you consider this an emergency, dial 9-1-7 or go to your nearest emergency department. NEED HELP? Are you dealing with a violent or abusive relationship? Are you a victim of rape or sexual assult? Call [facility] ([place]) 24 hour Crisis Hotline: 932.798.2560 or 659-447-8728. MANUAL Your Guide to a Healthy manual is now on-line. Visit [email or web address] [email or web address] to download your free copy documented in this encounter [facility] 08-10-2024 Telephone encounter Note New forms completed and faxed back to employer. Patient notified. Jesus Manuel Pabon MA [facility] 08-10-2024 Miscellaneous Notes New forms completed and faxed back to employer. Patient notified. Jesus Manuel Pabon MA New forms filled out. On providers desk for signature. Jesus Manuel Pabon MA Papers printed and placed in FMLA inbox. Drea Eckert RN documented in this encounter [facility] 08-09-2024 Telephone encounter Note New forms filled out. On providers desk for signature. Jesus Manuel Pabon MA [facility] 08-04-2024 Telephone encounter Note Papers printed and placed in FMLA inbox. Drea Eckert RN [facility] 07-21-2024 Telephone encounter Note FMLA paperwork has been completed and faxed back to employer. Keeping original copy for patient to apple picker at her next appointment. Patient notified. Jesus Manuel Pabon MA [facility] 07-21-2024 Miscellaneous Notes FMLA paperwork has been completed and faxed back to employer. Keeping original copy for patient to apple picker at her next appointment. Patient notified. Jesus Manuel Pabon MA Papers printed off and placed in prior authorization inbox to be completed. Drea Eckert RN documented in this encounter [facility] 07-20-2024 Telephone encounter Note Papers printed off and placed in prior authorization inbox to be completed. Drea Eckert RN [facility] 07-18-2024 Progress note Formatting of t his note might be different from the original. S: Valerio Nunez is a 28 year old female who presents at 25 weeks gestation for a routine visit. Positive movements. Increased hip pain. Recommended manager medicare. Denies headache, visual changes, chest pain, shortness of breath, vaginal bleeding, leakage of fluid, or dysuria. Feeling well, no complaints. O: See flow sheet Gen: No apparent distress Abd: Gravid, nontender ASSESSMENT/PLAN: 1. Supervision of high risk in second trimester 2. 25 weeks gestation of 3. Screening for diabetes mellitus 4. Supervision of other normal , antepartum 5. Obesity in - Pregravid BMI 38- Start NST's and growth US at 32 weeks gestation- discussed with patient - Continue vitamin and ASA - TDAP handout provided - RTO 3 weeks or sooner if needed Kelsi Hall APRN.CNM [facility] 07-18-2024 Miscellaneous Notes S: Valerio Nunez is a 28 year old female who presents at 25 weeks gestation for a routine visit. Positive movements. Increased hip pain. Recommended manager medicare. Denies headache, visual changes, chest pain, shortness of breath, vaginal bleeding, leakage of fluid, or dysuria. Feeling well, no complaints. O: See flow sheet Gen: No apparent distress Abd: Gravid, nontender ASSESSMENT/PLAN: 1. Supervision of high risk in second trimester 2. 25 weeks gestation of 3. Screening for diabetes mellitus 4. Supervision of other normal , antepartum 5. Obesity in - Pregravid BMI 38- Start NST's and growth US at 32 weeks gestation- discussed with patient - Continue vitamin and ASA - TDAP handout provided - RTO 3 weeks or sooner if needed Kelsi Hall APRN.CNM documented in this encounter [facility] 07-18-2024 Instructions Jamel Espitia MA - 07/18/2024 3:03 PM EDT SEQUENTIAL SCREENINGS The [facility] offers sequential screenings for women who are interested in screenings for chromosomal abnormalities and certain defects during a . The sequential screen combines ultrasound and blood tests to determine the risk of chromosomal abnormalities, including Down's Syndrome (Trisomy 21) and Trisomy 18, as well as open neural tube defects including spina bifida. Ultrasound examination is performed between 11 weeks and 13 weeks gestational age. Blood tests are drawn after the ultrasound and again later in the between 15 and 21 weeks gestational age. Please let your physician know if you are interested in this testing. It will require an appointment with our life support technician. This is not an ultrasound performed by a physician in our office during a routine visit. SIGNS AND SYMPTOMS OF LABOR 1. Contractions every 10 minutes or more often 2. Clear, pink, or brownish fluid (water) leaking from vagina 3. Feeling that baby is pushing down, pressure 4. Low, dull backache 5. Cramps that feel like a period 6. Cramps with or without diarrhea If you notice any of the above symptoms, contact our office at [phone] and ask to speak with a nurse. After hours, you can call doctors registry at [phone] OR call [facility] at [phone] and ask to have the doctor wet char conveyor tender paged. If you consider this an emergency, dial 9--1 or go to your nearest emergency department. NEED HELP? Are you dealing with a violent or abusive relationship? Are you a victim of rape or sexual assult? Call [facility] ([place]) 24 hour Crisis Hotline: 721.128.5329 or 447-396-8348. MANUAL Your Guide to a Healthy manual is now on-line. Visit [email or web address] [email or web address] to download your free copy documented in this encounter [facility] 06-18-2024 Progress note Formatting of t his note might be different from the original. S: Valerio Nunez is a 28 year old female who presents at 10/28/2024, by Ultrasound for a routine visit. Denies headache, visual changes, chest pain, shortness of breath, vaginal bleeding, leakage of fluid, or dysuria. Feeling well, no complaints. O: See flow sheet Gen: No apparent distress Anatomy completed today ASSESSMENT/PLAN: 1. 21 weeks gestation of (HCC) - ICD9: V22.2, ICD10: Z3A.21 (primary diagnosis) 2. Supervision of high risk in second trimester ([facility]) - ICD9: V23.9, ICD10: O09.92 3. Obesity affecting in second trimester, unspecified obesity type (HCC) - ICD9: 649.13, ICD10: O99.212 Growth q 4 weeks NSTs at 36 weeks 4. History of vacuum extraction assisted delivery - ICD9: V13.29, ICD10: Z87.59 Liset Castañeda MD [facility] 06-18-2024 Miscellaneous Notes S: Valerio Nunez is a 28 year old female who presents at 10/28/2024, by Ultrasound for a routine visit. Denies headache, visual changes, chest pain, shortness of breath, vaginal bleeding, leakage of fluid, or dysuria. Feeling well, no complaints. O: See flow sheet Gen: No apparent distress Anatomy completed today ASSESSMENT/PLAN: 1. 21 weeks gestation of (HCC) - ICD9: V22.2, ICD10: Z3A.21 (primary diagnosis) 2. Supervision of high risk in second trimester (HCC) - ICD9: V23.9, ICD10: O09.92 3. Obesity affecting in second trimester, unspecified obesity type (HCC) - ICD9: 649.13, ICD10: O99.212 Growth q 4 weeks NSTs at 36 weeks 4. History of vacuum extraction assisted delivery - ICD9: V13.29, ICD10: Z87.59 Liset Castañeda MD documented in this encounter [facility] 06-17-2024 Instructions Leni Liz MA - 06/17/2024 3:00 PM EDT SEQUENTIAL SCREENINGS The [facility] offers sequential screenings for women who are interested in screenings for chromosomal abnormalities and certain defects during a . The sequential screen combines ultrasound and blood tests to determine the risk of chromosomal abnormalities, including Down's Syndrome (Trisomy 21) and Trisomy 18, as well as open neural tube defects including spina bifida. Ultrasound examination is performed between 11 weeks and 13 weeks gestational age. Blood tests are drawn after the ultrasound and again later in the between 15 and 21 weeks gestational age. Please let your physician know if you are interested in this testing. It will require an appointment with our life support technician. This is not an ultrasound performed by a physician in our office during a routine visit. SIGNS AND SYMPTOMS OF LABOR 1. Contractions every 10 minutes or more often 2. Clear, pink, or brownish fluid (water) leaking from vagina 3. Feeling that baby is pushing down, pressure 4. Low, dull backache 5. Cramps that feel like a period 6. Cramps with or without diarrhea If you notice any of the above symptoms, contact our office at [phone] and ask to speak with a nurse. After hours, you can call doctors registry at [phone] OR call [facility] at [phone] and ask to have the doctor wet char conveyor tender paged. If you consider this an emergency, dial 11-07- or go to your nearest emergency department. NEED HELP? Are you dealing with a violent or abusive relationship? Are you a victim of rape or sexual assult? Call [facility] ([place]) 24 hour Crisis Hotline: 636.536.3844 or 495-190-4906. MANUAL Your Guide to a Healthy manual is now on-line. Visit [email or web address] [email or web address] to download your free copy documented in this encounter [facility] 05-13-2024 Progress note Formatting of t his note might be different from the original. DM-Pt doing well. Denies vaginal Bleeding, Leaking fluid, or regular Contractions. Pt reports good movement Physical Exam: Gen: female in no apparent distress Abd: soft, Gravid. Non tender to palpation. See flow sheet @ 16 weeks Assessment & Plan Supervision of high risk in second trimester Obesity affecting in second trimester, unspecified obesity type Continue ASA 16 weeks gestation of Declines aneuploidy screening Anatomy us scheduled Leonie Cr MD [facility] Work Phone: 05-13-2024 Miscellaneous Notes DM-Pt doing well. Denies vaginal Bleeding, Leaking fluid, or regular Contractions. Pt reports good movement Physical Exam: Gen: female in no apparent distress Abd: soft, Gravid. Non tender to palpation. See flow sheet @ 16 weeks Assessment & Plan Supervision of high risk in second trimester Obesity affecting in second trimester, unspecified obesity type Continue ASA 16 weeks gestation of Declines aneuploidy screening Anatomy us scheduled Leonie Cr MD documented in this encounter [facility] 05-13-2024 Instructions Sherry Julian MA - 05/13/2024 1:24 PM EST SEQUENTIAL SCREENINGS The [facility] offers sequential screenings for women who are interested in screenings for chromosomal abnormalities and certain defects during a . The sequential screen combines ultrasound and blood tests to determine the risk of chromosomal abnormalities, including Down's Syndrome (Trisomy 21) and Trisomy 18, as well as open neural tube defects including spina bifida. Ultrasound examination is performed between 11 weeks and 13 weeks gestational age. Blood tests are drawn after the ultrasound and again later in the between 15 and 21 weeks gestational age. Please let your physician know if you are interested in this testing. It will require an appointment with our life support technician. This is not an ultrasound performed by a physician in our office during a routine visit. SIGNS AND SYMPTOMS OF LABOR 1. Contractions every 10 minutes or more often 2. Clear, pink, or brownish fluid (water) leaking from vagina 3. Feeling that baby is pushing down, pressure 4. Low, dull backache 5. Cramps that feel like a period 6. Cramps with or without diarrhea If you notice any of the above symptoms, contact our office at [phone] and ask to speak with a nurse. After hours, you can call doctors registry at [phone] OR call [facility] at [phone] and ask to have the doctor wet char conveyor tender paged. If you consider this an emergency, dial 9-1-7 or go to your nearest emergency department. NEED HELP? Are you dealing with a violent or abusive relationship? Are you a victim of rape or sexual assult? Call [facility] ([place]) 24 hour Crisis Hotline: 541.893.5304 or 681-636-1175. MANUAL Your Guide to a Healthy manual is now on-line. Visit [email or web address] to download your free copy documented in this encounter [facility] 04-19-2024 Progress note Formatting of t his note might be different from the original. S: Valerio Nunez is a 28 year old female who presents at 10/28/2024, by Ultrasound for a routine visit. Denies headache, visual changes, chest pain, shortness of breath, vaginal bleeding, leakage of fluid, or dysuria. Feeling well, no complaints. Good movement, No contractions O: See flow sheet Gen: No apparent distress Abd: Gravid, nontender Declined NT ASSESSMENT/PLAN: 1. Encounter for supervision of high risk in first trimester, antepartum - ICD9: V23.9, ICD10: O09.91 (primary diagnosis) 2. 12 weeks gestation of - ICD9: V22.2, ICD10: Z3A.12 Liset Castañeda MD [facility] 04-19-2024 Miscellaneous Notes S: Valerio Nunez is a 28 year old female who presents at 10/28/2024, by Ultrasound for a routine visit. Denies headache, visual changes, chest pain, shortness of breath, vaginal bleeding, leakage of fluid, or dysuria. Feeling well, no complaints. Good movement, No contractions O: See flow sheet Gen: No apparent distress Abd: Gravid, nontender Declined NT ASSESSMENT/PLAN: 1. Encounter for supervision of high risk in first trimester, antepartum - ICD9: V23.9, ICD10: O09.91 (primary diagnosis) 2. 12 weeks gestation of - ICD9: V22.2, ICD10: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 04/24/2021 [facility] DATE CREATED AUTHOR AUTHOR'S ORGANIZ ATION 10/15/2024 [facility] Source Comments (unrecognize d section and content) In the event this informatio n is protected by the Federal Confidentiality of Alcohol and Drug Abuse Patient Records regulations: The Federal rules restrict any use of the information to criminally investigate or prosecute any alcohol or drug abuse patient.[facility] the event this information is protected by the Federal Confidentiality of Alcohol and Drug Abuse Patient Records regulations: The Federal rules restrict any use of the information to criminally investigate or prosecute any alcohol or drug abuse patient.[facility] the event this information is protected by the Federal Confidentiality of Alcohol and Drug Abuse Patient Records regulations: The Federal rules restrict any use of the information to criminally investigate or prosecute any alcohol or drug abuse patient.[facility] the event this information is protected by the Federal Confidentiality of Alcohol and Drug Abuse Patient Records regulations: The Federal rules restrict any use of the information to criminally investigate or prosecute any alcohol or drug abuse patient.[facility] the event this information is protected by the Federal Confidentiality of Alcohol and Drug Abuse Patient Records regulations: The Federal rules restrict any use of the information to criminally investigate or prosecute any alcohol or drug abuse patient.[facility] the event this information is protected by the Federal Confidentiality of Alcohol and Drug Abuse Patient Records regulations: The Federal rules restrict any use of the information to criminally investigate or prosecute any alcohol or drug abuse patient.[facility] the event this information is protected by the Federal Confidentiality of Alcohol and Drug Abuse Patient Records regulations: The Federal rules restrict any use of the information to criminally investigate or prosecute any alcohol or drug abuse patient.[facility] the event this information is protected by the Federal Confidentiality of Alcohol and Drug Abuse Patient Records regulations: The Federal rules restrict any use of the information to criminally investigate or prosecute any alcohol or drug abuse patient.[facility] the event this information is protected by the Federal Confidentiality of Alcohol and Drug Abuse Patient Records regulations: The Federal rules restrict any use of the information to criminally investigate or prosecute any alcohol or drug abuse patient.[facility] the event this information is protected by the Federal Confidentiality of Alcohol and Drug Abuse Patient Records regulations: The Federal rules restrict any use of the information to criminally investigate or prosecute any alcohol or drug abuse patient.[facility] the event this information is protected by the Federal Confidentiality of Alcohol and Drug Abuse Patient Records regulations: The Federal rules restrict any use of the information to criminally investigate or prosecute any alcohol or drug abuse patient.[facility] the event this information is protected by the Federal Confidentiality of Alcohol and Drug Abuse Patient Records regulations: The Federal rules restrict any use of the information to criminally investigate or prosecute any alcohol or drug abuse patient.[facility] the event this information is protected by the Federal Confidentiality of Alcohol and Drug Abuse Patient Records regulations: The Federal rules restrict any use of the information to criminally investigate or prosecute any alcohol or drug abuse patient.[facility] the event this information is protected by the Federal Confidentiality of Alcohol and Drug Abuse Patient Records regulations: The Federal rules restrict any use of the information to criminally investigate or prosecute any alcohol or drug abuse patient.[facility] the event this information is protected by the Federal Confidentiality of Alcohol and Drug Abuse Patient Records regulations: The Federal rules restrict any use of the information to criminally investigate or prosecute any alcohol or drug abuse patient.[facility] the event this information is protected by the Federal Confidentiality of Alcohol and Drug Abuse Patient Records regulations: The Federal rules restrict any use of the information to criminally investigate or prosecute any alcohol or drug abuse patient.[facility] the event this information is protected by the Federal Confidentiality of Alcohol and Drug Abuse Patient Records regulations: The Federal rules restrict any use of the information to criminally investigate or prosecute any alcohol or drug abuse patient.[facility] HospitalIn the event this information is protected by the Federal Confidentiality of Alcohol and Drug Abuse Patient Records regulations: The Federal rules restrict any use of the information to criminally investigate or prosecute any alcohol or drug abuse patient.[facility] HospitalIn the event this information is protected by the Federal Confidentiality of Alcohol and Drug Abuse Patient Records regulations: The Federal rules restrict any use of the information to criminally investigate or prosecute any alcohol or drug abuse patient.[facility] HospitalIn the event this information is protected by the Federal Confidentiality of Alcohol and Drug Abuse Patient Records regulations: The Federal rules restrict any use of the information to criminally investigate or prosecute any alcohol or drug abuse patient.[facility] HospitalIn the event this information is protected by the Federal Confidentiality of Alcohol and Drug Abuse Patient Records regulations: The Federal rules restrict any use of the information to criminally investigate or prosecute any alcohol or drug abuse patient.[facility] HospitalIn the event this information is protected by the Federal Confidentiality of Alcohol and Drug Abuse Patient Records regulations: The Federal rules restrict any use of the information to criminally investigate or prosecute any alcohol or drug abuse patient.[facility] HospitalIn the event this information is protected by the Federal Confidentiality of Alcohol and Drug Abuse Patient Records regulations: The Federal rules restrict any use of the information to criminally investigate or prosecute any alcohol or drug abuse patient.[facility] HospitalIn the event this information is protected by the Federal Confidentiality of Alcohol and Drug Abuse Patient Records regulations: The Federal rules restrict any use of the information to criminally investigate or prosecute any alcohol or drug abuse patient.[facility] HospitalIn the event this information is protected by the Federal Confidentiality of Alcohol and Drug Abuse Patient Records regulations: The Federal rules restrict any use of the information to criminally investigate or prosecute any alcohol or drug abuse patient.[facility] HospitalIn the event this information is protected by the Federal Confidentiality of Alcohol and Drug Abuse Patient Records regulations: The Federal rules restrict any use of the information to criminally investigate or prosecute any alcohol or drug abuse patient.[facility] HospitalIn the event this information is protected by the Federal Confidentiality of Alcohol and Drug Abuse Patient Records regulations: The Federal rules restrict any use of the information to criminally investigate or prosecute any alcohol or drug abuse patient.[facility] HospitalIn the event this information is protected by the Federal Confidentiality of Alcohol and Drug Abuse Patient Records regulations: The Federal rules restrict any use of the information to criminally investigate or prosecute any alcohol or drug abuse patient.[facility] HospitalIn the event this information is protected by the Federal Confidentiality of Alcohol and Drug Abuse Patient Records regulations: The Federal rules restrict any use of the information to criminally investigate or prosecute any alcohol or drug abuse patient.[facility] HospitalIn the event this information is protected by the Federal Confidentiality of Alcohol and Drug Abuse Patient Records regulations: The Federal rules restrict any use of the information to criminally investigate or prosecute any alcohol or drug abuse patient.[facility] HospitalIn the event this information is protected by the Federal Confidentiality of Alcohol and Drug Abuse Patient Records regulations: The Federal rules restrict any use of the information to criminally investigate or prosecute any alcohol or drug abuse patient.[facility] HospitalIn the event this information is protected by the Federal Confidentiality of Alcohol and Drug Abuse Patient Records regulations: The Federal rules restrict any use of the information to criminally investigate or prosecute any alcohol or drug abuse patient.[facility] HospitalIn the event this information is protected by the Federal Confidentiality of Alcohol and Drug Abuse Patient Records regulations: The Federal rules restrict any use of the information to criminally investigate or prosecute any alcohol or drug abuse patient.[facility] HospitalIn the event this information is protected by the Federal Confidentiality of Alcohol and Drug Abuse Patient Records regulations: The Federal rules restrict any use of the information to criminally investigate or prosecute any alcohol or drug abuse patient.[facility] HospitalIn the event this information is protected by the Federal Confidentiality of Alcohol and Drug Abuse Patient Records regulations: The Federal rules restrict any use of the information to criminally investigate or prosecute any alcohol or drug abuse patient.[facility] HospitalIn the event this information is protected by the Federal Confidentiality of Alcohol and Drug Abuse Patient Records regulations: The Federal rules restrict any use of the information to criminally investigate or prosecute any alcohol or drug abuse patient.[facility] HospitalIn the event this information is protected by the Federal Confidentiality of Alcohol and Drug Abuse Patient Records regulations: The Federal rules restrict any use of the information to criminally investigate or prosecute any alcohol or drug abuse patient.[facility] HospitalIn the event this information is protected by the Federal Confidentiality of Alcohol and Drug Abuse Patient Records regulations: The Federal rules restrict any use of the information to criminally investigate or prosecute any alcohol or drug abuse patient.[facility] HospitalIn the event this information is protected by the Federal Confidentiality of Alcohol and Drug Abuse Patient Records regulations: The Federal rules restrict any use of the information to criminally investigate or prosecute any alcohol or drug abuse patient.[facility] HospitalIn the event this information is protected by the Federal Confidentiality of Alcohol and Drug Abuse Patient Records regulations: The Federal rules restrict any use of the information to criminally investigate or prosecute any alcohol or drug abuse patient.[facility] HospitalIn the event this information is protected by the Federal Confidentiality of Alcohol and Drug Abuse Patient Records regulations: The Federal rules restrict any use of the information to criminally investigate or prosecute any alcohol or drug abuse patient.[facility] HospitalIn the event this information is protected by the Federal Confidentiality of Alcohol and Drug Abuse Patient Records regulations: The Federal rules restrict any use of the information to criminally investigate or prosecute any alcohol or drug abuse patient.[facility] HospitalIn the event this information is protected by the Federal Confidentiality of Alcohol and Drug Abuse Patient Records regulations: The Federal rules restrict any use of the information to criminally investigate or prosecute any alcohol or drug abuse patient.[facility] HospitalIn the event this information is protected by the Federal Confidentiality of Alcohol and Drug Abuse Patient Records regulations: The Federal rules restrict any use of the information to criminally investigate or prosecute any alcohol or drug abuse patient.[facility] HospitalIn the event this information is protected by the Federal Confidentiality of Alcohol and Drug Abuse Patient Records regulations: The Federal rules restrict any use of the information to criminally investigate or prosecute any alcohol or drug abuse patient.[facility] HospitalIn the event this information is protected by the Federal Confidentiality of Alcohol and Drug Abuse Patient Records regulations: The Federal rules restrict any use of the information to criminally investigate or prosecute any alcohol or drug abuse patient.[facility] HospitalIn the event this information is protected by the Federal Confidentiality of Alcohol and Drug Abuse Patient Records regulations: The Federal rules restrict any use of the information to criminally investigate or prosecute any alcohol or drug abuse patient.[facility] Reason for Visit (unrecogniz ed section and content) Reason Comments Fatigue Depression Reason Comments Results Reason Comments Refill Request Reason Comments Yearly Exam Reason Comments Patient Question Reason Onset Date Comments Refill Request 12/07/2021 Reason Comments Derm Problem Mole removal Reason Onset Date Comments Refill Request 09/08/2022 Reason Comments Medication Problem Reason Onset Date Comments Refill Request 11/14/2022 Reason Comments sinuses For 3'5 weeks sinus pressure drainage pain, head aches , sweats Reason Comments 3 month f/up adipex Pt states has not st arted this the wanted her to wait Reason Comments 3 month adipex check Reason Onset Date Comments Refill Request 07/03/2023 Reason Comments Rash All over started yes terday Reason Comments Initial OB Visit Reason Onset Date Comments Care 04/19/2024 Reason Onset Date Comments Care 05/13/2024 Reason Onset Date Comments Care 06/17/2024 Reason Comments US Specialty Diagnoses / Procedures Referred By Contac t Referred To Contact [facility] Diagnoses with uncertain dates in first trimester (HCC) Procedures OBSTETRIC ULTRASOUND WHI US PREG UTERUS AFTER 1ST TRIMEST GESTATION Max Agustin, AGRI BUSINESS AGENT.INTEGRATION CONSULTANT [address] [place] 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) History of vacuum extraction assisted delivery Procedures OBSTETRIC ULTRASOUND WHI US PREG UTERUS AFTER 1ST TRIMEST GESTATION Kelsi Hall, AGRI BUSINESS AGENT.CNM [address] [place] [address] Phone: tel: fax:[phone] [address] Referral ID Status Reason Start Date Expiration Date V isits Requested Visits Authorized [id number] Closed Auto-Generate d Referral 08/12/2024 08/12/2025 5 1 Reason Onset Date Comments Care 09/16/2024 Reason Onset Date Comments Care 09/23/2024 Reason Onset Date Comments Care 09/30/2024 Reason Onset Date Comments Care 10/07/2024 Reason Onset Date Comments Care 10/19/2024 Care Teams (unrecognized sec tion and content) Sas Administrator Relationship Specialty Start Date End Date Frank Marinelli, DO [address] [place] [address] PCP - General Family Practice 12/22/17 Sas Administrator Relationship Specialty Start Date End Date Frank Marinelli, DO [address] [place] [address] PCP - General Family Practice 12/22/17 Sas Administrator Relationship Specialty Start Date End Date Frank Marinelli, DO [address] [place] [address] PCP - General Family Practice 12/22/17 Sas Administrator Relationship Specialty Start Date End Date Frank Marinelli, DO [address] [place] [address] PCP - General Family Practice 12/22/17 Sas Administrator Relationship Specialty Start Date End Date Frank Marinelli, DO [address] [place] [address] PCP - General Family Practice 12/22/17 Sas Administrator Relationship Specialty Start Date End Date Frank Marinelli, DO [address] [place] [address] PCP - General Family Practice 12/22/17 Sas Administrator Relationship Specialty Start Date End Date Frank Marinelli, DO [address] [place] [address] PCP - General Family Medicine 12/22/17 Sas Administrator Relationship Specialty Start Date End Date Frank Marinelli, DO [address] [place] [address] PCP - General Family Medicine 12/22/17 Sas Administrator Relationship Specialty Start Date End Date Frank Marinelli DO [address] [place] [address] PCP - General Family Medicine 12/22/17 Sas Administrator Relationship Specialty Start Date End Date Frank Marinelli DO [address] [place] [address] PCP - General Family Medicine 12/22/17 Sas Administrator Relationship Specialty Start Date End Date Frank Marinelli DO [address] [place] [address] PCP - General Family Medicine 12/22/17 Sas Administrator Relationship Specialty Start Date End Date Frank Marinelli DO [address] [place] [address] PCP - General Family Medicine 12/22/17 Sas Administrator Relationship Specialty Start Date End Date Frank Marinelli DO [address] [place] [address] PCP - General Family Medicine 12/22/17 Sas Administrator Relationship Specialty Start Date End Date Frank Marinelli DO [address] [place] [address] PCP - General Family Medicine 12/22/17 Sas Administrator Relationship Specialty Start Date End Date Frank Marinelli DO [address] [place] [address] PCP - General Family Medicine 12/22/17 Sas Administrator Relationship Specialty Start Date End Date Frank Marinelli DO [address] [place] [address] PCP - General Family Medicine 12/22/17 Sas Administrator Relationship Specialty Start Date End Date Frank Marinelli DO [address] [facility] [place] [address] PCP - General Family Medicine 12/22/17 Sas Administrator Relationship Specialty Start Date End Date Frank Marinelli DO [address] [place] [address] PCP - General Family Medicine 12/22/17 Fabi Farah, AGRI BUSINESS AGENT.INTEGRATION CONSULTANT [address] [place] [address] [employer] Boat [employer] Family Medicine 02/14/24 Rosana Leslie, AGRI BUSINESS AGENT.INTEGRATION CONSULTANT [address] [place] [address] Run Boat [employer] [facility] 02/14/24 Sas Administrator Relationship Specialty Start Date End Date Frank Marinelli DO [address] [place] [address] PCP - General Family Medicine 12/22/17 Fabi Farah, AGRI BUSINESS AGENT.INTEGRATION CONSULTANT [address] [place] [address] [employer] Family [facility] 02/14/24 Rosana Leslie, AGRI BUSINESS AGENT.INTEGRATION CONSULTANT [address] [place] [address] [facility] 02/14/24 Sas Administrator Relationship Specialty Start Date End Date Frank Marinelli DO [address] [place] [address] PCP - General Family Medicine 12/22/17 Fabi Farah, AGRI BUSINESS AGENT.INTEGRATION CONSULTANT [address] [place] [address] [employer] Family [facility] 02/14/24 05/27/24 Rosana Leslie, AGRI BUSINESS AGENT.INTEGRATION CONSULTANT [address] [place] [address] [employer] [facility] 02/14/24 Sas Administrator Relationship Specialty Start Date End Date Frank Marinelli DO [address] [place] [address] PCP - General Family Medicine 12/22/17 Rosana Leslie, AGRI BUSINESS AGENT.INTEGRATION CONSULTANT [address] [place] [address] [facility]/14/24 Sas Administrator Relationship Specialty Start Date End Date Frank Marinelli DO [address] [place] [address] PCP - General Family Medicine 12/22/17 Rosana Leslie, AGRI BUSINESS AGENT.INTEGRATION CONSULTANT [address] [place] [address] [facility] 02/14/24 Sas Administrator Relationship Specialty Start Date End Date Frank Marinelli DO [address] [place] [address] PCP - General Family Medicine 12/22/17 Rosana Leslie, AGRI BUSINESS AGENT.INTEGRATION CONSULTANT [address] [place] [address] [facility] 02/14/24 Sas Administrator Relationship Specialty Start Date End Date Frank Marinelli DO [address] [facility] [place] [address] PCP - General Family Medicine 12/22/17 [facility], AGRI BUSINESS AGENT.INTEGRATION CONSULTANT [address] [facility] [place] [address] [employer] Boat Operator Family [facility] 02/14/24 Sas Administrator Relationship Specialty Start Date End Date Frank Marinelli DO [address] [facility] [place] [address] PCP - General Family Medicine 12/22/17 [facility], AGRI BUSINESS AGENT.INTEGRATION CONSULTANT [address] [facility] [place] [address] [employer] Boat Operator [facility] 02/14/24 Sas Administrator Relationship Specialty Start Date End Date Frank Marinelli DO [address] [facility] [place] [address] PCP - General Family Medicine 12/22/17 [facility], AGRI BUSINESS AGENT.INTEGRATION CONSULTANT [address] [facility] [place] [address] [employer] Boat Operator [facility] 02/14/24 Sas Administrator Relationship Specialty Start Date End Date Frank Marinelli DO [address] [facility] [place] [address] PCP - General Family Medicine 12/22/17 [facility], AGRI BUSINESS AGENT.INTEGRATION CONSULTANT [address] [facility] [place] [address] [employer] Boat Operator [facility] 02/14/24 Sas Administrator Relationship Specialty Start Date End Date Frank Marinelli DO [address] [facility] [place] [address] PCP - General Family Medicine 12/22/17 JoleneRosana, AGRI BUSINESS AGENT.INTEGRATION CONSULTANT [address] [facility] [place] [address] [employer] Boat Operator Family Medicine 02/14/24 Leny Alberto, AGRI BUSINESS AGENT.INTEGRATION CONSULTANT [address] [place] [address] [employer] Boat Operator [facility] 08/22/24 Sas Administrator Relationship Specialty Start Date End Date Frank Marinelli DO [address] [facility] [place] [address] PCP - General Family Medicine 12/22/17 JoleneRosana, AGRI BUSINESS AGENT.INTEGRATION CONSULTANT [address] [facility] [place] [address] [employer] Boat Operator Family Medicine 02/14/24 Leny Alberto, AGRI BUSINESS AGENT.INTEGRATION CONSULTANT [address] [place] [address] [facility] 08/22/24 Sas Administrator Relationship Specialty Start Date End Date Frank Marinelli DO [address] [facility] [place] [address] PCP - General Family Medicine 12/22/17 JoleneRosana, AGRI BUSINESS AGENT.INTEGRATION CONSULTANT [address] [facility] [place] [address] [employer] Family [facility] 02/14/24 Leny Alberto, AGRI BUSINESS AGENT.INTEGRATION CONSULTANT [address] [place] [address] [employer] [facility] 08/22/24 Sas Administrator Relationship Specialty Start Date End Date Frank Marinelli DO [address] [place] [address] PCP - General Family Medicine 12/22/17 Rosana Leslie, AGRI BUSINESS AGENT.INTEGRATION CONSULTANT [address] [place] [address] [employer] [facility] 02/14/24 Leny Alberto, AGRI BUSINESS AGENT.INTEGRATION CONSULTANT [address] [place] [address] [employer] Boat [employer] [facility] 08/22/24 Sas Administrator Relationship Specialty Start Date End Date Frank Marinelli DO [address] [place] [address] PCP - General Family Medicine 12/22/17 Rosana Leslei, AGRI BUSINESS AGENT.INTEGRATION CONSULTANT [address] [place] [address] [employer] [facility] 02/14/24 Leny Alberto, AGRI BUSINESS AGENT.INTEGRATION CONSULTANT [address] [place] [address] [employer] [facility] 08/22/24 Sas Administrator Relationship Specialty Start Date End Date Frank Marinelli DO [address] [place] [address] PCP - General Family Medicine 12/22/17 Rosana Leslie, AGRI BUSINESS AGENT.INTEGRATION CONSULTANT [address] [place] [address] [employer] [facility] 02/14/24 Leny Alberto, AGRI BUSINESS AGENT.INTEGRATION CONSULTANT [address] [place] [address] [facility] 08/22/24 Sas Administrator Relationship Specialty Start Date End Date Frank Marinelli DO [address] [place] [address] PCP - General Family Medicine 12/22/17 JoleneRosana, AGRI BUSINESS AGENT.INTEGRATION CONSULTANT [address] [place] [address] [facility] 02/14/24 Leny Alberto, AGRI BUSINESS AGENT.INTEGRATION CONSULTANT [address] [place] [address] [facility] 08/22/24 Sas Administrator Relationship Specialty Start Date End Date Frank Marinelli DO [address] [place] [address] PCP - General Family Medicine 12/22/17 JoleneRosana, AGRI BUSINESS AGENT.INTEGRATION CONSULTANT [address] [place] [address] [facility] 02/14/24 Leny Alberto, AGRI BUSINESS AGENT.INTEGRATION CONSULTANT [address] [place] [address] [facility] Medicine 08/22/24 Sas Administrator Relationship Specialty Start Date End Date Frank Marinelli DO [address] [place] [address] PCP - General Family Medicine 12/22/17 Rosana Leslie, AGRI BUSINESS AGENT.INTEGRATION CONSULTANT [address] [place], [place] [address] [facility] 02/14/24 Leny Alberto APRN.INTEGRATION CONSULTANT [address] [place], [place] [id number] [facility] 08/22/24 Sas Administrator Relationship Specialty Start Date End Date Frank Marinelli DO [address] [place], [place] [address] PCP - [facility] 12/22/17 JoleneRosana, AGRI BUSINESS AGENT.INTEGRATION CONSULTANT [address] [place], [place] [address] [facility] 02/14/24 Leny Alberto, AGRI BUSINESS AGENT.INTEGRATION CONSULTANT [address] [place], [place] [id number] [facility] 08/22/24 FOR RECORDS PERTAINING TO PATIENTS WHO ARE OR HAVE BEEN ENROLLED IN A CHEMICAL DEPENDENCY/SUBSTANCEABUSE PROGRAM, SOME INFORMATION MAY BE OMITTED. This clinical summary was aggregated from multiple sources. Caution should be exercised in using it in the provision of clinical care. This summary normalizes information from multiple sources, and as a consequence, information in this document may materially change the coding, format and clinical context of patient data. In addition, data may be omitted in some cases. CLINICAL DECISIONS SHOULD BE BASED ON THE PRIMARY CLINICAL RECORDS. [employer] provides no warranty or guarantee of the accuracy or completeness of information in this document.
[2024-10-21] MEDS: Lactated Ringers 1,000 ML 50 ML IV (08:05)
[2024-10-21 08:29] LABS: Hematocrit 41.6 % (37-47); Hemoglobin 14.3 g/dL (12.0-15.0); Immature Granulocytes Count 0.120 X10^3/uL (0.0-0.0); Mean Corp Hgb Conc 34.4 g/dL (32-36); Mean Corpuscular Volume 92.7 fL (81-99); Mean Platelet Vol. 10.4 fl (6.2-12.0); NRBC Flagged by Analyzer 0 % (0-5); Platelet Count 152 K/mm3 (150-450); RBC Distribution Width CV 14.0 % (11.6-14.6); RBC Distribution Width SD 47.4 fl (35.1-43.9); Red Blood Count 4.49 M/mm3 (4.2-5.4); White Blood Count 10.5 K/mm3 (4.4-11.0)
[2024-10-21] MEDS: 0.9% Normal Saline Single 100 ML IV.SOLN. INTRA-UTER (08:50)
--- NOTE | 2024-10-21 08:58 | HP.PCM.OB_ITS ---
HPI - General General Date of Admission: 10/21/24 Date of Service: 10/21/24 Chief Complaint: IOL HPI Narrative VALERIO NUNEZ, is a 29 F who presents for IOL with EFW 99%. BMI 42 Maternal Data Information Final DONNELL: 10/28/24 Gestational age: 41 PFSH PFSH Medical History Vacuum extractor delivery, delivered Pneumothorax Pulmonary embolism Trauma Home Medications ?Medication ?Instructions ?Recorded ?Last Taken ?Type vits,calcium no.78-iron 1 tab PO DAILY pregna ncy 07/20/20 07/20/20 08:00 History fumarate-folic acid 29 mg-1 mg tablet (Prenatabs FA) Allergy/AdvReac Type Severity Reaction Status Date / Time No Known Allergies Allergy Verified 07/20/20 16:21 Surgical History History of surgery Social History Smoking Status: Never smoker History 2 Elective abortions Hx Para 1 Spontaneous abortions Hx # Term Pregnancies Ectopic pregnancies Hx # Pregnancies Multiple births # of living children NST FHR Rate Baby A Baseline: 125 Variability:: Moderate Accelerations:: 15 x 15 Decelerations:: None NST Reactive:: Yes Vital Signs Vital Signs Vital Signs: 10/21/24 07:19 10/21/24 07:19 10/21/24 07:20 Temperature Temperature Source Temporal Pulse Rate 83 Blood Pressure 129/82 H BP Systolic 129 BP Diastolic 82 Pulse Ox 10/21/24 07:20 10/21/24 07:26 10/21/24 07:26 Temperature 97.8 F Temperature Source Pulse Rate 82 Blood Pressure BP Systolic BP Diastolic Pulse Ox 96 Weight Weight: 113.511 kg Body Mass Index (BMI) 42.9 Labs Labs Labs: Blood Type B POSITIVE Antibody Screen NEGATIVE Hct 41.6 % (37-47) Hgb 14.3 g/dL (12.0-15.0) Syphilis Total Ab Pending Assessment & Plan (1) Elective induction of labor planned: (2) 39 weeks gestation of : PLAN: Plan [place] bulb placed at 0850 1 cm/50/-4. Starting pit
[2024-10-21 09:16] LABS: Syphilis Antibodies Nonreactive (Nonreactive)
[2024-10-21] MEDS: Oxytocin 15 Units/NS 250ml 15 UNITS/250 ML IV.SOLN 2 UNITS IV (09:22)
--- NOTE | 2024-10-21 13:34 | PCM.PN.OB ---
Subjective Subjective AROM fro mec stained fluid/ 3-4 cm/70/-2 Cat I Pit at 8 Objective Data Objective Data Vital Signs: Vital Signs Temp Pulse Resp BP Pulse Ox 97.5 F L 75 16 109/75 96 10/21/24 12:02 10/21/24 12:02 10/21/24 12:02 10/21/24 12:02 10/21/24 07:26 Weight: 113.511 kg Body Mass Index (BMI) 42.9 Intake & Output: Intake and Output for Last 24 Hours 10/19/24 10/20/24 10/21/24 23:59 23:59 23:59 Intake Total 250 / 250 Balance 250 / 250 Lab / Micro Data 10/21/24 08:00 Labs: Laboratory Results - last 24 hr 10/21/24 08:00: WBC 10.5, RBC 4.49, Hgb 14.3, Hct 41.6, MCV 92.7, MCH 31.8, MCHC 34.4, RDW Std Deviation 47.4 H, RDW Coeff of [place] 14.0, Plt Count 152, MPV 10.4, Immature Gran % (Auto) 1.100 H, Neut % (Auto) 67.0, Lymph % (Auto) 22.4, [place] % (Auto) 7.9, Eos % (Auto) 1.0, Baso % (Auto) 0.6, Absolute Neuts (auto) 7.0, Absolute Lymphs (auto) 2.35, Nucleated RBC % 0, Syphilis Total Ab Nonreactive, Blood Type B POSITIVE, Antibody Screen NEGATIVE NST FHR Rate Baby A Baseline: 140 Variability:: Moderate Accelerations:: 15 x 15 Decelerations:: None NST Reactive:: Yes Assessment & Plan (1) 39 weeks gestation of : (2) Elective induction of labor planned: (3) Meconium in amniotic fluid:
[2024-10-21] MEDS: Lactated Ringers 1,000 ML 999 ML IV (13:46)
[2024-10-21] MEDS: fentaNYL-bupivacaine (epidural) 100 ML BAG EPIDURAL ×2 (15:03→19:06)
--- NOTE | 2024-10-21 16:36 | NURSING ---
SCD's on and inflating to liz[place] lower legs.
[2024-10-21] MEDS: Lactated Ringers 1,000 ML 200 ML IV ×2 (17:19→21:55)
--- OUTSIDE RECORDS SUMMARY | 2024-10-21 20:08 | XMS RPT_ITS | CCD ---
Author Organization [facility] Care Team Providers Care Affiliate Manager Name Role Phone DUSTIN BASSETT Unavailable Unavailable REFERRED, SELF Unavailable Unavailable DUSTIN BASSETT Unavailable Unavailable Tizzano, Abad P Unavailable Unavailable Sophia, Christy L Unavailable Unavailable Tizzano, Abad P Unavailable Unavailable Sophia, Christy L Unavailable Unavailable Sophia, Christy L Unavailable Unavailable Sophia, Christy L Unavailable Unavailable Tizzano, Abad P Unavailable Unavailable Sophia, Christy L Unavailable Unavailable Tizzano, Abda P Unavailable Unavailable Sophia, Christy L Unavailable Unavailable Tizzano, Abad P Unavailable Unavailable Tizzano, Abad P Unavailable Unavailable Sophia, Christy L Unavailable Unavailable Frank Marinelli DO Primary Care Provider Frank Marinelli DO Primary Care Provider Frank Marinelli DO Primary Care Provider Frank Marinelli DO Primary Care Provider Farah TIRE SERVICE SUPERVISOR.Fabi POWELL Unavailable Jolene TIRE SERVICE SUPERVISOR.Rosana POWELL Unavailable Farah TIRE SERVICE SUPERVISOR.Fabi POWELL Unavailable Dolly TIRE SERVICE SUPERVISOR.Leny POWELL Unavailable FRANK MARINELLI Primary Care Unavailable KELSI HALL Attending Unavailable FRANK MARINELLI Primary Care Unavailable KELSI HALL Referring Unavailable FRANK MARINELLI Primary Care Unavailable SELF Referring Unavailable MAX AGUSTIN Attending Unavailable FRANK MARINELLI Primary Care Unavailable VALENTINA DEL ROSARIO Attending Unavailable MARINELLI, FRANK L Primary Care Unavailable MARINELLI, FRANK L Primary Care Unavailable PLOTTS, KELSI Referring Unavailable MARINELLI, FRANK L Primary Care Unavailable LISET CASTAÑEDA Attending Unavailable MARINELLI, FRANK L Primary Care Unavailable PLOTTS, KELSI Referring Unavailable MARINELLI, FRANK L Primary Care Unavailable KENYON, LISET Attending Unavailable MARINELLI, FRANK L Primary Care Unavailable MARINELLI, FRANK L Primary Care Unavailable YUMIKO CARVER Attending Unavailable MARINELLI, FRANK L Primary Care Unavailable KENYONLISET DALTON Attending Unavailable MARINELLI, FRANK L Primary Care Unavailable HAURY, MAX Referring Unavailable MARINELLI, FRANK L Primary Care Unavailable LEONIE PONCE Attending Unavail able MARINELLI, FRANK L Primary Care Unavailable BRANDAN PUGA Referring Unavailable BRANDAN PUGA Attending Unavailable MARINELLI, FRANK L Primary Care Unavailable BRANDAN PUGA Referring Unavailable MARINELLI, FRANK L Primary Care Unavailable PLOTCARMINA, KELSI Attending Unavailable MARINELLI, FRANK L Primary Care Unavailable PLOTKELSI OLMOS Attending Unavailable MARINELLI, FRANK L Primary Care Unavailable PLOTTS, KELSI Referring Unavailable MARINELLI, FRANK L Primary Care Unavailable BRANDAN PUGA Attending Unavailable MARINELLI, FRANK L Primary Care Unavailable MARINELLI, FRANK L Primary Care Unavailable MARINELLI, FRANK L Primary Care Unavailable PLOTTS, KELSI Referring Unavailable PLOTKELSI OLMOS Attending Unavailable MARINELLI, FRANK L Primary Care Unavailable SELF Referring Unavailable LISET CASTAÑEDA Attending Unavailable MARINELLI, FRANK L Primary Care Unavailable HADEREJE, MAX Referring Unavailable MARINELLI, FRANK L Primary Care Unavailable PLOTTS, KELSI Referring Unavailable BRANDAN PUGA Attending Unavailable Medications Current Medications Medication Drug Class(es) [...] IN THE MORNING Take 1 tablet by [facility] once daily. methylPREDNISolone (1 source) Corticosteroid Start: [...] Comment on above: Take 1 tablet by [facility] once daily for 90 days. Kpqkmeev-Dh-Rgw-Fe-FA tab (20 sources) Start: 2024 take 1 tablet by mouth once daily Pzwctslr-Vo-Rfr-Fe-FA tab Take 1 tablet by mouth once [...] Comment on above: Take 1 capsule by [facility] once daily. Take 1 capsule by [facility] once daily Ethinyl Estradiol / Norethindrone (20 [...] Start: 10-09-2021 take 1 tablet by silvia th once [...] obesity affecting in third trimester (HCC)] Onset: 08-12-2024 Chronic Other complications of (1 source) Obesity [...] high risk in third trimester (HCC)] Onset: 08-12-2024 Episodic Other complications of (1 source) Supervision of high risk , unspecified, second trimester; Translations: [Supervision of high risk in second trimester (HCC)] Onset: 08-12-2024 Episodic Other endocrine disorders (6 sources) Polycystic ovary syndrome; Translations: [Polycystic ovarian syndrome] Chronic Other liver diseases (1 source) Increased vitamin B; Translations: [Abnormal levels of other serum enzymes] 11-24-2022 Episodic Other nutritional; endocrine; and metabolic disorders (3 sources) Obese class II; Translations: [Obesity, unspecified] 02-11-2023 Chronic Other and delivery including normal (20 sources) with uncertain dates; Translations: [Encounter for supervision of normal , unspecified, first trimester] Onset: 03-18-2024 Resolved: 08-12-2024 03-18-2024 Episodic Other screening for suspected conditions (not mental [...] 10-07-2024 Episodic Residual codes; unclassified (1 source) Gestation period, 38 weeks; Translations: [38 weeks gestation of ] 10-19-2024 Episodic Residual codes; unclassified (1 source) 38 weeks gestation of ; Translations: [38 weeks gestation of (HCC)] Onset: 10-19-2024 Episodic Residual codes; unclassified (1 source) 37 weeks gestation of ; Translations: [37 weeks gestation of (HCC)] Onset: 10-13-2024 Episodic Residual codes; unclassified (1 source) 36 [...] Translations: [25 weeks gestation of (HCC)] Onset: 08-12-2024 Episodic Unclassified (20 sources) [facility] Education - COMMON Onset: 03-18-2024 03-18-2024 Unclassified (20 sources) Education - [place] Onset: 03-18-2024 03-18-2024 Unclassified (1 source) H/O: previous delivery by vacuum extraction 08-12-2024 Unclassified (1 source) Other obesity affecting in third trimester ([facility]); Translations: [Other obesity affecting in third trimester ([facility])] Onset: 08-12-2024 Past or Other Problems Problem Classification Problem [...] (healed) traumatic fracture] Onset: 11-10-2019 12-14-2019 Episodic Phlebitis; thrombophlebitis and thromboembolism (20 sources) [...] 5 Glucose Ql (U) 1000 mg/dL [facility] Protein.monoclonal (U) [Mass/Vol] Negative Neg mg/dL [facility] URINE OB DIP B/Oon 5 Glucose Ql (U) Negative Neg mg/dL [facility] Interpretation and review of laboratory results Normal [facility] Protein.monoclonal (U) [Mass/Vol] Negative Neg mg/dL [facility] Examination level ultrasound on 09-30-2024 [facility] Radiology Study observation (narrative) [facility] ROUTINE, GROUP B ST REPTOCOCCUS BY PCRon 09-30-2024 ROUTINE, GROUP B STREPTOCOCCUS BY PCR Not detected Normal [facility] Comment on above: Performed By: #### G BPCR ####[facility] LABCLIA [id number] [address] [place] URINE OB DIP B/Oon 5 Glucose Ql (U) 250 mg/dL Neg [facility] Interpretation and review of laboratory results Normal [facility] Protein.monoclonal (U) [Mass/Vol] Negative Neg mg/dL [facility] URINE OB DIP B/Oon Glucose Ql (U) Negative Neg mg/dL [facility] Interpretation and review of laboratory results Normal [facility] Protein.monoclonal (U) [Mass/Vol] Negative Neg mg/dL [facility] Examination level ultrasound on 09-02-2024 [facility] Radiology Study observation (narrative) [facility] GLUCOSE GESTATIONAL, 1 HOURo n 08-13-2024 Glucose 1 Hr post Unsp challenge [Mass/Vol] 136 mg/dL Normal 74-179 [facility] Comment on above: Order Comment: Ijeoma humphries Type: BLOOD SPECIMENOrdering Facility: [facility] Address: [address] [place] [address] Result Comment: [facility] Congress of Obstetricians and Gynecologists (Essence/Penny) guidelines state gestational diabetes mellitus is present when 2 or more of the plasma glucose concentrations meet or exceed the following levels: fastin mg/dl, 1 hr: 180 mg/dl, 2 hr: 155 mg/dl, and 3 hr: 140 mg/dl. Performed By: #### G TGST1 ####[facility] LABCLIA [id number] [place] [address] [place] GLUCOSE GESTATIONAL, 2 HOURo n 08-13-2024 Glucose 2 Hr post Unsp challenge [Mass/Vol] 128 mg/dL Normal 74-154 [facility] Comment on above: Order Comment: Ijeoma humphries Type: BLOOD SPECIMENOrdering Facility: [facility] Address: [address] [place] [address] Result Comment: [facility] Congress of Obstetricians and Gynecologists (Essence/Penny) guidelines state gestational diabetes mellitus is present when 2 or more of the plasma glucose concentrations meet or exceed the following levels: fastin mg/dl, 1 hr: 180 mg/dl, 2 hr: 155 mg/dl, and 3 hr: 140 mg/dl. Performed By: #### G TGST2 ####[facility] LABCLIA [id number] [address] [place] GLUCOSE GESTATIONAL, 3 HOURo n 08-13-2024 Glucose 3 Hr post Unsp challenge [Mass/Vol] 126 mg/dL Normal 74-139 [facility] Comment on above: Order Comment: Ijeoma humphries Type: BLOOD SPECIMENOrdering Facility: [facility] Address: [address] [place] [address] Result Comment: [facility] Congress of Obstetricians and Gynecologists ([place]ell[place]) guidelines state gestational diabetes mellitus is present when 2 or more of the plasma glucose concentrations meet or exceed the following levels: fastin mg/dl, 1 hr: 180 mg/dl, 2 hr: 155 mg/dl, and 3 hr: 140 mg/dl. Performed By: #### G TGST3 ####[facility] LABIA [id number] [address] STATES [facility] GLUCOSE GESTATIONAL, FASTING on 08-13-2024 Glucose post fast [Mass/Vol] 78 mg/dL Normal 74-94 [facility] Comment on above: Order Comment: Ijeoma humphries Type: BLOOD SPECIMENOrdering Facility: [facility] Address: [address] [place] [address] Result Comment: [facility] Congress of Obstetricians and Gynecologists ([place]) guidelines state gestational diabetes mellitus is present when 2 or more of the plasma glucose concentrations meet or exceed the following levels: fastin mg/dl, 1 hr: 180 mg/dl, 2 hr: 155 mg/dl, and 3 hr: 140 mg/dl. Performed By: #### G TGSTF ####[facility] LABIA [id number] [address] [place] CBC W Auto Differential pane l (Bld)on 08-12-2024 Basophils (Bld) [#/Vol] 0.03 10*3/uL Normal <0.11 [facility] Comment on above: Order Comment: Ijeoma humphries Type: BLOOD SPECIMENOrdering Facility: [facility] Address: [address] [place] [address] Performed By: #### 5 7021-8 ####[facility] PANWNCLIA [id number] [place] [address] [place] Basophils/100 WBC (Bld) 0.3 % Normal [facility] Comment on above: Order Comment: Speci men Type: BLOOD SPECIMENOrdering Facility: [facility] Address: [address] [place] [address] Performed By: #### 5 7021-8 ####[facility] ALMASWBARBARALIA [id number] [place] [address] [place] Differential cell count method Nom (Bld) Auto Normal [facility] Comment on above: Order Comment: Speci men Type: BLOOD SPECIMENOrdering Facility: [facility] Address: [address] [place] [address] Performed By: #### 5 7021-8 ####[facility] ALMASPIKE ROADBARBARAHILLARYA [id number] [place] [address] [place] Eosinophils (Bld) [#/Vol] 0.10 10*3/uL Normal <0.46 [facility] Comment on above: Order Comment: Speci men Type: BLOOD SPECIMENOrdering Facility: [facility] Address: [address] [place] [address] Performed By: #### 5 7021-8 ####[facility] ALMASGIANCARLOLIA [id number] [place] [address] [place] Eosinophils/100 WBC (Bld) 0.9 % Normal [facility] Comment on above: Order Comment: Speci men Type: BLOOD SPECIMENOrdering Facility: [facility] Address: [address] [place] [address] Performed By: #### 5 7021-8 ####[facility]ENTERBARBARALIA [id number] [place] [address] [place] Erythrocyte distribution width (RBC) [Ratio] 14.0 % Normal 11.5-15.0 [facility] Comment on above: Order Comment: Speci men Type: BLOOD SPECIMENOrdering Facility: [facility] Address: [address] [place] [address] Performed By: #### 5 7021-8 ####[facility] RAMANA [id number] [place] [address] [place] Hematocrit (Bld) [Volume fraction] 39.8 % Normal 36.0-46.0 [facility] Comment on above: Order Comment: Speci men Type: BLOOD SPECIMENOrdering Facility: [facility] Address: [address] [place] [address] Performed By: #### 5 7021-8 ####[facility]ENTERALBERTO [id number] [place] [address] [place] Hemoglobin (Bld) [Mass/Vol] 13.6 g/dL Normal 11.5-15.5 [facility] Comment on above: Order Comment: Speci men Type: BLOOD SPECIMENOrdering Facility: [facility] Address: [address] [place] [address] Performed By: #### 5 7021-8 ####[facility] CENTERALBERTO [id number] [place] [address] [place] Immature granulocytes (Bld) [#/Vol] 0.12 10*3/uL High <0.10 [facility] Comment on above: Order Comment: Speci men Type: BLOOD SPECIMENOrdering Facility: [facility] Address: [address] [place] [address] Performed By: #### 5 7021-8 ####[facility]ENTERNCLIA [id number] [place] [address] [place] Immature granulocytes/100 WBC (Bld) 1.1 % Normal [facility] Comment on above: Order Comment: Speci men Type: BLOOD SPECIMENOrdering Facility: [facility] Address: [address] [place] [address] Performed By: #### 5 7021-8 ####[facility] H[facility]ITALWNCLIA [id number] [place] [address] [place] Lymphocytes (Bld) [#/Vol] 2.43 10*3/uL Normal 1.00-4.00 [facility] Comment on above: Order Comment: Speci men Type: BLOOD SPECIMENOrdering Facility: [facility] Address: [address] [place] [address] Performed By: #### 5 7021-8 ####[facility] HOSPITALLIA [id number] [place] [address] [place] Lymphocytes/100 WBC (Bld) 22.5 % Normal [facility] Comment on above: Order Comment: Speci men Type: BLOOD SPECIMENOrdering Facility: [facility] Address: [address] [place] [address] Performed By: #### 5 7021-8 ####[facility] SYSTEMSA [id number] [place] [address] [place] MCH (RBC) [Entitic mass] 31.8 pg Normal 26.0-34.0 [facility] Comment on above: Order Comment: Speci men Type: BLOOD SPECIMENOrdering Facility: [facility] Address: [address] [place] [address] Performed By: #### 5 7021-8 ####[facility]PITALLIA [id number] [place] [address] [place] MCHC (RBC) [Mass/Vol] 34.2 g/dL Normal 30.5-36.0 [facility] Comment on above: Order Comment: Speci men Type: BLOOD SPECIMENOrdering Facility: [facility] Address: [address] [place] [address] Performed By: #### 5 7021-8 ####[facility]ENTERNCLI [id number] [place] [address] [place] MCV (RBC) [Entitic vol] 93.0 fL Normal 80.0-100.0 [facility] Comment on above: Order Comment: Speci men Type: BLOOD SPECIMENOrdering Facility: [facility] Address: [address] [place] [address] Performed By: #### 5 7021-8 ####[facility] SYSTEMSA [id number] [place] [address] [place] Monocytes (Bld) [#/Vol] 0.54 10*3/uL Normal <0.87 [facility] Comment on above: Order Comment: Speci men Type: BLOOD SPECIMENOrdering Facility: [facility] Address: [address] [place] [address] Performed By: #### 5 7021-8 ####[facility] [id number] [place] [address] [place] Monocytes/100 WBC (Bld) 5.0 % Normal [facility] Comment on above: Order Comment: Speci men Type: BLOOD SPECIMENOrdering Facility: [facility] Address: [address] [place] [address] Performed By: #### 5 7021-8 ####[facility] SYSTEMSA [id number] [place] [address] [place] Neutrophils (Bld) [#/Vol] 7.57 10*3/uL High 1.45-7.50 [facility] Comment on above: Order Comment: Speci men Type: BLOOD SPECIMENOrdering Facility: [facility] Address: [address] [place] [address] Performed By: #### 5 7021-8 ####[facility]ENTERNCLIA [id number] [place] [address] [place] Neutrophils/100 WBC (Bld) 70.2 % Normal [facility] Comment on above: Order Comment: Speci men Type: BLOOD SPECIMENOrdering Facility: [facility] Address: [address] [place] [address] Performed By: #### 5 7021-8 ####[facility] ALMASTimNCLUIS [id number] [place] [address] [place] Nucleated RBC (Bld) [#/Vol] 10*3/uL Normal <0.01 [facility] Comment on above: Order Comment: Speci men Type: BLOOD SPECIMENOrdering Facility: [facility] Address: [address] [place] [address] Performed By: #### 5 7021-8 ####[facility] CENTERNCLIEmma [id number] [place] [address] [place] Nucleated RBC/100 WBC (Bld) [Ratio] 0.0 /100 WBC Normal [facility] Comment on above: Order Comment: Speci men Type: BLOOD SPECIMENOrdering Facility: [facility] Address: [address] [place] [address] Performed By: #### 5 7021-8 ####[facility]ENTERNCLIA [id number] [place] [address] [place] Platelet mean volume (Bld) [Entitic vol] 9.8 fL Normal 9.0-12.7 [facility] Comment on above: Order Comment: Speci men Type: BLOOD SPECIMENOrdering Facility: [facility] Address: [address] [place] [address] Performed By: #### 5 7021-8 ####[facility]ENTERNCLIA [id number] [place] [address] [place] Platelets (Bld) [#/Vol] 179 10*3/uL Normal 150-400 [facility] Comment on above: Order Comment: Speci men Type: BLOOD SPECIMENOrdering Facility: [facility] Address: [address] [place] [address] Performed By: #### 5 7021-8 ####[facility]ENTERNCLIA [id number] [place] [address] [place] RBC (Bld) [#/Vol] 4.28 10*6/uL Normal 3.90-5.20 [facility] Comment on above: Order Comment: Speci men Type: BLOOD SPECIMENOrdering Facility: [facility] Address: [address] [place] [address] Performed By: #### 5 7021-8 ####[facility] CENTERNCINTERMOUNTAIN [facility] [id number] [place] [address] [place] WBC (Bld) [#/Vol] 10.79 10*3/uL Normal 3.70-11.00 [facility] Comment on above: Order Comment: Speci men Type: BLOOD SPECIMENOrdering Facility: [facility] Address: [address] [place] [address] Performed By: #### 5 7021-8 ####[facility] CENTERNCA [id number] [place] [address] [place] GESTATIONAL GLUCOSE SCREEN, 1-HOUR, 50 GRAM, NON-FASTINGon 08-12-2024 Glucose [Mass/Vol] 136 mg/dL High 74-134 [facility] Comment on above: Order Comment: Speci men Type: BLOOD SPECIMENOrdering Facility: [facility] Address: [address] [place] [address] Result Comment: [facility] Congress of Obstetricians and Gynecologists (Essence/Penny) guidelines state a gestational diabetes mellitus positive screen is made, in women not previously diagnosed with overt diabetes, when the 1 hr plasma glucose level is equal to or above 140 mg/dL. [facility] recommends a 135 mg/dL cutoff. Performed By: #### G LTGST ####[facility] CENTERNCLIA [id number] [place] [address] [place] Reagin and Treponema pallidu m IgG and IgM [Interp]on 08-12-2024 T. pallidum IgG+IgM IA Ql (S) Non-Reactive Normal Nonreactive [facility] Comment on above: Order Comment: Speci men Type: BLOOD SPECIMENOrdering Facility: [facility] Address: [address] [place] [address] Performed By: #### 7 3752-8 ####[facility] LABIA [id number] [place] [address] [place] Reagin+T pallidum IgG+IgM Se rPl-Impon 08-12-2024 Reagin and Treponema pallidum IgG and IgM [Interp] Cannot exclude recent Treponemal infection if specimen collected within 7-10 days after appearance of suspect lesions or 2-3 weeks after an exposure. Clinical correlation is required. Normal [facility] Comment on above: Order Comment: Speci men Type: BLOOD SPECIMENOrdering Facility: [facility] Address: [address] [place] [address] Performed By: #### 7 3752-8 ####[facility] LABIA [id number] [place] [address] [place] Examination level ultrasound [...] 0 oz EFW by: Hadlock (HC-AC-FL) Extended Seasonal [employer]ery Bundler 6.5 mm CM 3.8 mm 10% Nicolaides [...] normal LVOT view: normal 3-vessel view: normal 1-dmrstz-asyowhx view: normal Heart / Thorax Situs: situs [...] Read By: Aziza Hurtado M.D. [facility] Examination level ultrasound on 06-17-2024 Radiology Study observation (narrative) [facility] CBC W Auto Differential pane l (Bld)on 04-15-2024 Basophils (Bld) [#/Vol] 0.04 10*3/uL Normal <0.11 [facility] Comment on above: Order Comment: Speci men Type: BLOOD SPECIMENOrdering Facility: [facility] Address: [address] [place] [address] Performed By: #### 5 7021-8 ####[facility] [id number] [place] [address] [place] Basophils/100 WBC (Bld) 0.4 % Normal [facility] Comment on above: Order Comment: Speci men Type: BLOOD SPECIMENOrdering Facility: [facility] Address: [address] [place] [address] Performed By: #### 5 7021-8 ####[facility] ALMASWNCLIA [id number] [place] [address] [place] Differential cell count method Nom (Bld) Auto Normal [facility] Comment on above: Order Comment: Speci men Type: BLOOD SPECIMENOrdering Facility: [facility] Address: [address] [place] [address] Performed By: #### 5 7021-8 ####[facility] CENTERBARBARALIA [id number] [place] [address] [place] Eosinophils (Bld) [#/Vol] 0.10 10*3/uL Normal <0.46 [facility] Comment on above: Order Comment: Speci men Type: BLOOD SPECIMENOrdering Facility: [facility] Address: [address] [place] [address] Performed By: #### 5 7021-8 ####[facility] CENTERBARBARAA [id number] [place] [address] [place] Eosinophils/100 WBC (Bld) 1.1 % Normal [facility] Comment on above: Order Comment: Speci men Type: BLOOD SPECIMENOrdering Facility: [facility] Address: [address] [place] [address] Performed By: #### 5 7021-8 ####[facility] CENTERANDIA [id number] [place] [address] [place] Erythrocyte distribution width (RBC) [Ratio] 12.6 % Normal 11.5-15.0 [facility] Comment on above: Order Comment: Speci men Type: BLOOD SPECIMENOrdering Facility: [facility] Address: [address] [place] [address] Performed By: #### 5 7021-8 ####[facility] CENTERNCLIA [id number] [place] [address] [place] Hematocrit (Bld) [Volume fraction] 42.7 % Normal 36.0-46.0 [facility] Comment on above: Order Comment: Speci men Type: BLOOD SPECIMENOrdering Facility: [facility] Address: [address] [place] [address] Performed By: #### 5 7021-8 ####[facility] CENTERNCINTERMOUNTAIN MED[facility] [id number] [place] [address] [place] Hemoglobin (Bld) [Mass/Vol] 15.1 g/dL Normal 11.5-15.5 [facility] Comment on above: Order Comment: Speci men Type: BLOOD SPECIMENOrdering Facility: [facility] Address: [address] [place] [address] Performed By: #### 5 7021-8 ####[facility] [id number] [place] [address] [place] Immature granulocytes (Bld) [#/Vol] 0.04 10*3/uL Normal <0.10 [facility] Comment on above: Order Comment: Speci men Type: BLOOD SPECIMENOrdering Facility: [facility] Address: [address] [place] [address] Performed By: #### 5 7021-8 ####[facility] [id number] [place] [address] [place] Immature granulocytes/100 WBC (Bld) 0.4 % Normal [facility] Comment on above: Order Comment: Speci men Type: BLOOD SPECIMENOrdering Facility: [facility] Address: [address] [place] [address] Performed By: #### 5 7021-8 ####[facility] [id number] [place] [address] [place] Lymphocytes (Bld) [#/Vol] 2.66 10*3/uL Normal 1.00-4.00 [facility] Comment on above: Order Comment: Speci men Type: BLOOD SPECIMENOrdering Facility: [facility] Address: [address] [place] [address] Performed By: #### 5 7021-8 ####[facility] CENTERALBERTO [id number] [address] STATES [facility] Lymphocytes/100 WBC (Bld) 28.0 % Normal [facility] Comment on above: Order Comment: Speci men Type: BLOOD SPECIMENOrdering Facility: [facility] Address: [address] [place] [address] Performed By: #### 5 7021-8 ####[facility] CENTERBARBARAINTERMOUNTAIN MEDICAL CENTER [id number] [place] [address] [place] MCH (RBC) [Entitic mass] 31.1 pg Normal 26.0-34.0 [facility] Comment on above: Order Comment: Speci men Type: BLOOD SPECIMENOrdering Facility: [facility] Address: [address] [place] [address] Performed By: #### 5 7021-8 ####[facility] [id number] [place] [address] [place] MCHC (RBC) [Mass/Vol] 35.4 g/dL Normal 30.5-36.0 [facility] Comment on above: Order Comment: Speci men Type: BLOOD SPECIMENOrdering Facility: [facility] Address: [address] [place] [address] Performed By: #### 5 7021-8 ####[facility] CENTERNCLIA [id number] [place] [address] [place] MCV (RBC) [Entitic vol] 87.9 fL Normal 80.0-100.0 [facility] Comment on above: Order Comment: Speci men Type: BLOOD SPECIMENOrdering Facility: [facility] Address: [address] [place] [address] Performed By: #### 5 7021-8 ####[facility] HOSPITALLIA [id number] [place] [address] [place] Monocytes (Bld) [#/Vol] 0.67 10*3/uL Normal <0.87 [facility] Comment on above: Order Comment: Speci men Type: BLOOD SPECIMENOrdering Facility: [facility] Address: [address] [place] [address] Performed By: #### 5 7021-8 ####[facility] HOSPITALLIA [id number] [place] [address] [place] Monocytes/100 WBC (Bld) 7.1 % Normal [facility] Comment on above: Order Comment: Speci men Type: BLOOD SPECIMENOrdering Facility: [facility] Address: [address] [place] [address] Performed By: #### 5 7021-8 ####[facility] HOSPITALLIA [id number] [place] [address] [place] Neutrophils (Bld) [#/Vol] 5.99 10*3/uL Normal 1.45-7.50 [facility] Comment on above: Order Comment: Speci men Type: BLOOD SPECIMENOrdering Facility: [facility] Address: [address] [place] [address] Performed By: #### 5 7021-8 ####[facility] HOSPITALLIA [id number] [place] [address] [place] Neutrophils/100 WBC (Bld) 63.0 % Normal [facility] Comment on above: Order Comment: Speci men Type: BLOOD SPECIMENOrdering Facility: [facility] Address: [address] [place] [address] Performed By: #### 5 7021-8 ####[facility]OSPITALLIA [id number] [place] [address] [place] Nucleated RBC (Bld) [#/Vol] 10*3/uL Normal <0.01 [facility] Comment on above: Order Comment: Speci men Type: BLOOD SPECIMENOrdering Facility: [facility] Address: [address] [place] [address] Performed By: #### 5 7021-8 ####[facility] CENTERNCINTERMOUNTAIN MEDICAL CENTER [id number] [place] [address] [place] Nucleated RBC/100 WBC (Bld) [Ratio] 0.0 /100 WBC Normal [facility] Comment on above: Order Comment: Speci men Type: BLOOD SPECIMENOrdering Facility: [facility] Address: [address] [place] [address] Performed By: #### 5 7021-8 ####[facility] CENTERNCINTERMOUNTAIN MEDICAL CENTER [id number] [place] [address] [place] Platelet mean volume (Bld) [Entitic vol] 9.7 fL Normal 9.0-12.7 [facility] Comment on above: Order Comment: Speci men Type: BLOOD SPECIMENOrdering Facility: [facility] Address: [address] [place] [address] Performed By: #### 5 7021-8 ####[facility] CENTERNCLIA [id number] [place] [address] [place] Platelets (Bld) [#/Vol] 236 10*3/uL Normal 150-400 [facility] Comment on above: Order Comment: Speci men Type: BLOOD SPECIMENOrdering Facility: [facility] Address: [address] [place] [address] Performed By: #### 5 7021-8 ####[facility] SYSTEMSA [id number] [place] [address] [place] RBC (Bld) [#/Vol] 4.86 10*6/uL Normal 3.90-5.20 [facility] Comment on above: Order Comment: Speci men Type: BLOOD SPECIMENOrdering Facility: [facility] Address: [address] [place] [address] Performed By: #### 5 7021-8 ####[facility] CENTERNCA [id number] [place] [address] [place] WBC (Bld) [#/Vol] 9.50 10*3/uL Normal 3.70-11.00 [facility] Comment on above: Order Comment: Speci men Type: BLOOD SPECIMENOrdering Facility: [facility] Address: [address] [place] [address] Performed By: #### 5 7021-8 ####[facility] CENTERNCA [id number] [place] [address] [place] HBV surface Ag Ser Qlon HBV surface Ag Ql (S) Negative Normal Negative [facility] Comment on above: Order Comment: Speci men Type: BLOOD SPECIMENOrdering Facility: [facility] Address: [address] [place] [address] Performed By: #### 5 195-3, 60990-6, 56840-6 ####[facility] LABIA [id number] [place] [address] [place] HCV Ab Ser Qlon 04-15-2024 HCV Ab Ql (S) Negative Normal Negative [facility] Comment on above: Order Comment: Speci men Type: BLOOD SPECIMENOrdering Facility: [facility] Address: [address] [place] [address] Result Comment: The result suggests no evidence of active infection with Hepatitis C virus. Should recent infection be suspected, repeat testing may be considered 4-6 weeks after this draw. Performed By: #### 1 6128-1 ####[facility] LABIA [id number] [place] [address] [place] HIV 1+2 Ab IA Qlon HIV 1 and 2 Ab IA.rapid Nom (S/P/Bld) Normal [facility] Comment on above: Order Comment: Speci men Type: BLOOD SPECIMENOrdering Facility: [facility] Address: [address] [place] [address] Result Comment: Test not indicated. Performed By: #### 5 195-3, 90138-0, 34214-6 ####[facility] LABCLIA [id number] [place] [address] [place] HIV 1+2 Ab+HIV1 p24 Ag IA Ql Non-Reactive Normal Nonreactive [facility] Comment on above: Order Comment: Speci men Type: BLOOD SPECIMENOrdering Facility: [facility] Address: [address] [place] [address] Performed By: #### 5 195-3, 94002-7, 28180-2 ####[facility] LABCLIA [id number] [place] [address] [place] HIV immunoassay testing algorithm interpretation (S/P/Bld) [Interp] Normal [facility] Comment on above: Order Comment: Speci men Type: BLOOD SPECIMENOrdering Facility: [facility] Address: [address] [place] [address] Result Comment: No e vidence of HIV-1 or HIV-2 infection. Should recent infection be suspected, repeat testing may be considered 2-3 weeks after this draw. [place] Rev. Code 3701.243(E): This information has been [...] test results or diagnoses. Performed By: #### 5 195-3, 51019-1, 47285-9 ####[facility] LABCLIA [id number] [place] [id number] [place] HbA1c (Bld)on 04-15-2024 Average glucose Estimated from glycated hemoglobin (Bld) [Mass/Vol] 80 mg/dL Normal [facility] Comment on above: Order Comment: Ijeoma humphries Type: BLOOD SPECIMENOrdering Facility: [facility] Address: [address] [place] [address] Result Comment: eAG: (Estimated average glucose) is a calculated value from HgbA1c and is printing sales representative of the average blood glucose level in the last 2-3 month period. Performed By: #### 5 5454-3 ####[facility] LABCLIA [id number] [address] [place] HbA1c (Bld) [Mass fraction] 4.4 % Normal 4.3-5.6 [facility] Comment on above: Order Comment: Sarajamarcus humphries Type: BLOOD SPECIMENOrdering Facility: [facility] Address: [address] [place] [address] Result Comment: Amer [place] Diabetes Association guidelines indicate that patients with HgbA1c in the range 5.7-6.4% are at increased risk for development of diabetes, and intervention by lifestyle modification may be beneficial. HgbA1c greater or equal to 6.5% is considered diagnostic of diabetes. Performed By: #### 5 5454-3 ####[facility] LABIA [id number] [address] [place] RUBELLA IGG ANTIBODYon 04-15 RUBELLA IGG AB, QUAL Positive Normal Positive [facility] Comment on above: Order Comment: Ijeoma humphries Type: BLOOD SPECIMENOrdering Facility: [facility] Address: [address] [place] [address] Result Comment: The result suggests recent or past exposure to Rubella virus or history of Rubella vaccination. Positive result may also be seen due to presence of passively-transferred antibodies. Please correlate with patient's history. Performed By: #### R UBIGG ####[facility] LABCLIA [id number] [address] [place] Reagin and Treponema pallidu m IgG and IgM [Interp]on 04-15-2024 T. pallidum IgG+IgM IA Ql (S) Non-Reactive Normal Nonreactive [facility] Comment on above: Order Comment: Speci men Type: BLOOD SPECIMENOrdering Facility: [facility] Address: [address] [place] [address] Performed By: #### 5 195-3, 27180-3, 69463-9 ####[facility] LABCLIA [id number] [place] [address] [place] Reagin+T pallidum IgG+IgM Se rPl-Impon 04-15-2024 Reagin and Treponema pallidum IgG and IgM [Interp] Cannot exclude recent Treponemal infection if specimen collected within 7-10 days after appearance of suspect lesions or 2-3 weeks after an exposure. Clinical correlation is required. Normal [facility] Comment on above: Order Comment: Speci men Type: BLOOD SPECIMENOrdering Facility: [facility] Address: [address] [place] [address] Performed By: #### 5 195-3, 53535-0, 56489-4 ####[facility] LABCLIA [id number] [place] [address] [place] TYPE + SCREEN PRENATALon ABO B Normal [facility] Comment on above: Order Comment: Speci men Type: BLOOD SPECIMEN [facility] Address: [address] [place] [address] Performed By: #### T SPN #### [facility] CLIA [id number] [address] [place] [address] [place] Rh Nom (Bld) Positive Normal [facility] Comment on above: Order Comment: Speci men Type: BLOOD SPECIMEN [facility] Address: [address] [place] [address] Performed By: #### T SPN #### [facility] CLIA [id number] [address] [place] [address] [place] TYPE AND SCREEN EXPIRATION 04/18/2024 23:59 Normal [facility] Comment on above: Order Comment: Speci men Type: BLOOD SPECIMEN [facility] Address: [address] [place] [address] Performed By: #### T SPN #### [facility] CLTX [id number] [address] [place] [address] [place] Bacteria Ur Culton Bacteria identified Cx Nom (U) ORGANISM ID: 1 <10,000 CFU/ml Normal urogenital makenzie Normal [facility] Comment on above: Performed By: #### 6 30-4 ####[facility] LABCLIA [id number] [place] [address] [place] C. trachomatis+N. gonorrhoea e DNA DIONNA+probe Ql (Unsp spec)on 03-18-2024 C. trachomatis rRNA DIONNA+probe Ql (Unsp spec) Not detected Normal Not detected [facility] Comment on above: Order Comment: Speci men Type: SWABOrdering Facility: [facility] Address: [address] [place] [address] Performed By: #### 3 6902-5 ####[facility] LABIA [id number] [place] [address] [place] N. gonorrhoeae rRNA DIONNA+probe Ql (Unsp spec) Not detected Normal Not detected [facility] Comment on above: Order Comment: Speci men Type: SWABOrdering Facility: [facility] Address: [address] [place] [address] Performed By: #### 3 6902-5 ####[facility] LABIA [id number] [place] [address] [place] PAP TESTon 03-18-2024 ADEQUACY Normal [facility] Comment on above: Order Comment: Speci men Type: FLUID SPECIMENOrdering Facility: [facility] Address: [address] [place] [address] Result Comment: Sati sfactory for interpretation. No endocervical component Performed By: #### L [id number] ####[facility] LABORATORYCLIA [id number] [place] [id number] [facility] LABCLIA [id number] [place] [address] [place] CASE REPORT Normal [facility] Comment on above: Order Comment: Speci men Type: FLUID SPECIMENOrdering Facility: [facility] Address: [address] [place] [address] Result Comment: Gyne cologic Cytology Report Case: [id number] Authorizing Provider: Max Agustin APRN.AIRCRAFT DESIGNER Collected: 03/18/2024 10:15 AM Ordering Location: OB/Gynecology Received: 03/18/2024 02:19 PM First Screen: Juan, Ally, CT, ASCP Specimen: Pap Test, ThinPrep, Cervix Performed By: #### L [id number] ####[facility]ORATORYCLIA [id number] [place] [address] [place] [facility] LABCLIA [id number] [place] [address] [place] CLINICAL HISTORY, CYTOLOGY, BARBED WIRE MACHINE OPERATOR (Indicate Weeks) Normal [facility] Comment on above: Order Comment: Speci men Type: FLUID SPECIMENOrdering Facility: [facility] Address: [address] [place] [address] Result Comment: 8 we eks Performed By: #### L [id number] ####[facility] LABORATORYCLIA [id number] [place] [id number] [place] [facility] LABCLIA [id number] [place] [address] [place] FINAL PERFORMING LAB Normal [facility] Comment on above: Order Comment: Speci men Type: FLUID SPECIMENOrdering Facility: [facility] Address: [address] [place] [address] Result Comment: Tech nical component, contract clerk automobile screening performed at [facility], [address] [place] [address] CLIA# [id number] Diagnostic interpretation performed at [facility], [address] [place] [id number] CLIA# [id number] Cocoa Powder Mixer Operator: Hansel Gómez M.D. Performed By: #### L [id number] ####[facility] LABORATORYCLIA [id number] [place] [address] [facility] LABCLIA [id number] [address] [address] [place] INTERPRETATION, CYTOLOGY, BARBED WIRE MACHINE OPERATOR Normal [facility] Comment on above: Order Comment: Speci men Type: FLUID SPECIMENOrdering Facility: [facility] Address: [address] [place] [address] Result Comment: Nega tive for intraepithelial lesion or malignancy. Performed By: #### L [id number] ####[facility] LABORATORYCLIA [id number] [place] [id number] [facility] LABCLIA [id number] [place] [id number] [place] LMP 01/11/2024 Normal [facility] Comment on above: Order Comment: Speci men Type: FLUID SPECIMENOrdering Facility: [facility] Address: [address] [place] [address] Performed By: #### L [id number] ####[facility] LABORATORYCLIA [id number] [place] [id number] [facility] LABCLIA [id number] [address] [address] [place] PAP DISCLAIMER COMMENT The Pap Smear is a screening test for cervical cancer. False negative results occur with all screening tests, emphasizing the need for rescreening at recommended intervals, and clinical correlation. Normal [facility] Comment on above: Order Comment: Speci men Type: FLUID SPECIMENOrdering Facility: [facility] Address: [address] [place] [address] Performed By: #### L [id number] ####[facility]ORATORYCLIA [id number] [address] LABCLIA [id number] [address] PAP NURSING HOME ADMISSIONS DIRECTOR COMMENT This specimen has be en analyzed by the ThinPrep Imaging System, an automated imaging and review system, which assists the laboratory in evaluating cells on ThinPrep Pap tests. Following automated imaging, selected mccarthy from every slide are reviewed by a contract clerk automobile. Normal [facility] Comment on above: Order Comment: Speci men Type: FLUID SPECIMENOrdering Facility: [facility] Address: [address] [place] [address] Performed By: #### L [id number] ####[facility] LABORATORYCLIA [id number] [place] [id number] [facility] LABIA [id number] [address] POC [employer] INDUSTRIAL DEVELOPMENT CONSULTANT ULTRASOUNDon 03-18-19 25 Indication Viability; confirm cardiac activity Impression Single [...] present. FHR 171 bpm Performed By: Max Haury, C PYTHON DEVELOPER Read By: Max Agustin NP MATERNAL MEDICINE [facility] Radiology Study observation (narrative) [facility] CNOVon 12-31-2023 CNOV Office Visit (FAMPWS ) ----- VALERIO NUNEZ ([id number]) 1995 F Date Time Provider Department 12/31/23 8:00 AM [facility] During your visit today, we recorded the [...] once daily. (more content not included)... Normal [facility] CBC-Complete Blood Cnt No Di ffon 07-22-2020 Erythrocyte distribution width (RBC) [Ratio] 13.0 % Normal 11.6-14.6 [facility] Comment on above: Order Comment: Rc n for Laboratory Test Day #1 Performed By: #### L 100.0500 #### [facility] [address] [place], [address] Hematocrit (Bld) [Volume fraction] 42.1 % Normal 37-47 [facility] Comment on above: Order Comment: Reaso n for Laboratory Test Day #1 Performed By: #### L 100.0500 #### [facility] [address] [place], [address] Hemoglobin (Bld) [Mass/Vol] 14.3 g/dL Normal 12.0-15.0 [facility] Comment on above: Order Comment: Reaso n for Laboratory Test Day #1 Performed By: #### L 100.0500 #### [facility] [address] [place], [address] MCH (RBC) [Entitic mass] 32.4 pg High 27.0-32.0 [facility] Comment on above: Order Comment: Reaso n for Laboratory Test Day #1 Performed By: #### L 100.0500 #### [facility] [address] [place], [address] MCHC (RBC) [Mass/Vol] 34.0 g/dL Normal 32-36 [facility] Comment on above: Order Comment: Reaso n for Laboratory Test Day #1 Performed By: #### L 100.0500 #### [facility] [address] [place], [address] MCV (RBC) [Entitic vol] 95.5 fL Normal 81-99 [facility] Comment on above: Order Comment: Reaso n for Laboratory Test Day #1 Performed By: #### L 100.0500 #### [facility] [address] [place], [address] Platelet mean volume (Bld) [Entitic vol] 10.1 fL Normal 6.2-12.0 [facility] Comment on above: Order Comment: Reaso n for Laboratory Test Day #1 Performed By: #### L 100.0500 #### [facility] [address] [place], [address] Platelets (Bld) [#/Vol] 149 10*3/uL Low 150-450 [facility] Comment on above: Order Comment: Reaso n for Laboratory Test Day #1 Performed By: #### L 100.0500 #### [facility] [address] [place], [address] RBC (Bld) [#/Vol] 4.41 10*6/uL Normal 4.2-5.4 [facility] Comment on above: Order Comment: Reaso n for Laboratory Test Day #1 Performed By: #### L 100.0500 #### [facility] [address] [place], [address] RDW SD 45.5 fl High 35.1-43.9 [facility] Comment on above: Order Comment: Reaso n for Laboratory Test Day #1 Performed By: #### L 100.0500 #### [facility] Laboratory [address] [place], [address] WBC (Bld) [#/Vol] 19.0 10*3/uL High 4.4-11.0 [facility] Comment on above: Order Comment: Reaso n for Laboratory Test Day #1 Performed By: #### L 100.0500 #### [facility] Laboratory [address] [place], [address] CBC W/Diff, Automatedon 05-1 Absolute Lymph 2.11 X10 3/uL Normal 0.83-4.51 [facility] Comment on above: Performed By: #### B TS, L100.0100 #### [facility] Laboratory [address] [place], [address] Absolute Neut 12.1 X10 3/uL High 2.0-7.7 [facility] Comment on above: Performed By: #### B TS, L100.0100 #### [facility] Laboratory [address] [place], [address] Basophils/100 WBC (Bld) 0.3 % Normal 0-1 [facility] Comment on above: Performed By: #### Wendi OLMOS, L100.0100 #### [facility] Laboratory [address] [place], [address] Eosinophils/100 WBC (Bld) 0.1 % Normal 0-5 [facility] Comment on above: Performed By: #### Wendi OLMOS, L100.0100 #### [facility] Laboratory [address] [place], [address] Erythrocyte distribution width (RBC) [Ratio] 13.1 % Normal 11.6-14.6 [facility] Comment on above: Performed By: #### Wendi OLMOS, L100.0100 #### [facility] Laboratory [address] [place], [address] Hematocrit (Bld) [Volume fraction] 45.8 % Normal 37-47 [facility] Comment on above: Performed By: #### Wendi OLMOS, L100.0100 #### [facility] Laboratory [address] [place], [address] Hemoglobin (Bld) [Mass/Vol] 15.6 g/dL High 12.0-15.0 [facility] Comment on above: Performed By: #### Wendi OLMOS, L100.0100 #### [facility] Laboratory [address] [place], [address] IG% 0.700 Normal 0.0-0.9 [facility] Comment on above: Result Comment: IG% - Immature Granulocytes (promyelocytes, myelocytes and metamyelocytes) > 1% indicates that a LEFT SHIFT is Present. Performed By: #### Wendi OLMOS, L100.0100 #### [facility] Laboratory [address] [place], [address] Lymphocytes/100 WBC (Bld) 13.8 % Low 19-41 [facility] Comment on above: Performed By: #### Wendi OLMOS, L100.0100 #### [facility] Laboratory [address] [place], [address] MCH (RBC) [Entitic mass] 32.4 pg High 27.0-32.0 [facility] Comment on above: Performed By: #### Wendi OLMOS, L100.0100 #### [facility] Laboratory [address] [place], [address] MCHC (RBC) [Mass/Vol] 34.1 g/dL Normal 32-36 [facility] Comment on above: Performed By: #### Wendi OLMOS, L100.0100 #### [facility] Laboratory [address] [place], [address] MCV (RBC) [Entitic vol] 95.2 fL Normal 81-99 [facility] Comment on above: Performed By: #### Wendi OLMOS, L100.0100 #### [facility] Laboratory [address] [place], [address] Monocytes/100 WBC (Bld) 6.1 % Normal 0-10 [facility] Comment on above: Performed By: #### Wnedi OLMOS, L100.0100 #### [facility] Laboratory [address] [place], [address] Neutrophils/100 WBC (Bld) 79.0 % High 47-70 [facility] Comment on above: Performed By: #### Wendi OLMOS, L100.0100 #### [facility] Laboratory [address] [place], [address] Nucleated RBC (Bld) [#/Vol] 0 10*3/uL Normal 0-5 [facility] Comment on above: Performed By: #### Wendi OLMOS, L100.0100 #### [facility] Laboratory [address] [place], [address] Platelet mean volume (Bld) [Entitic vol] 10.8 fL Normal 6.2-12.0 [facility] Comment on above: Performed By: #### Wendi OLMOS, L100.0100 #### [facility] Laboratory [address] [place], [address] Platelets (Bld) [#/Vol] 188 10*3/uL Normal 150-450 [facility] Comment on above: Performed By: #### Wendi OLMOS, L100.0100 #### [facility] Laboratory [address] [place], [address] RBC (Bld) [#/Vol] 4.81 10*6/uL Normal 4.2-5.4 [facility] Comment on above: Performed By: #### Wendi OLMOS, L100.0100 #### [facility] Laboratory [address] [place], [address] RDW SD 46.5 fl High 35.1-43.9 [facility] Comment on above: Performed By: #### Wendi OLMOS, L100.0100 #### [facility] Laboratory [address] [place], [address] WBC (Bld) [#/Vol] 15.3 10*3/uL High 4.4-11.0 [facility] Comment on above: Performed By: #### Wendi OLMOS, L100.0100 #### [facility] Laboratory [address] [place], [address] H AND P Exam - OB/GYNon 07-07 H&P Exam - PIPE LINE WALKER [facility] Medical Records Department [address] [place] [address] H P Exam - PIPE LINE WALKER 07/21/20 0719 MR#: [id number] Acct: [id number] Name: ENRIQUEVALERIO PAULA Rep #: [id number] : 1995 24 From: Brandan Puga MD PCP: Care Physician, No Primary Status:ADM IN Location: [id number] HPI - General General Date of Admission: 07/21/20 Chief Complaint: Induction of labor HPI Narrative 24-year-old 1 para 0 presents at 40 weeks 1 day for induction of labor. She has had some contractions since she left last night. She had a Ulloa catheter placed yesterday for cervical ripening. She denies any gross vaginal bleeding or leaking of fluid. [facility] Home Medications vit,[id number] [Prenatabs FA] 1 tab PO DAILY 07/20/20 [...] Physician; Dr. Brandan Puga MD Signed Normal [facility] Operative Reporton Operative Report [facility] Medical Records Department [address] [place] [address] Operative Report 05/1818 MR#: [id number] Acct: [id number] Name: VALERIO NUNEZ Rep #: [id number] : 1995 24 From: Brandan Puga MD PCP: Care Physician, No Primary Status:ADM IN [id number] Assessment Plan (1) Vacuum extractor delivery, delivered: [...] first- degree vaginal laceration. The remainder the infant was delivered with maternal pushing and gentle [...] ABG b/c of very short, thin cord) A Gender: Female (chuck) (1 minute): 9 (5 minute): 9 Delayed Cord Clamping: Yes Post Vaginal Delivery Medications Given After Delivery: IV Pitocin and IM Methergin (x1 to prevent methergine) Episiotomy Description: None Laceration: 1st degree (vaginal) Complication Complications: None 07/21/20 1834 Cosigner Signature (if applicable): CC: No Primary Care Physician; Dr. Brandan Puga MD Signed [facility] Type AND Screenon 07-21-2020 Ab SCREEN GEL Negative [facility] Comment on above: Order Comment: Labor Performed By: #### B TS, L100.0100 #### [facility] Laboratory [address] [place], [address] ABO and Rh group Nom (Bld) Blood group B Rh(D) positive [facility] Comment on above: Order Comment: Labor Performed By: #### B TS, L100.0100 #### [facility] Laboratory [address] [place], [address] H AND P Exam - OB/GYNon 07-07 H&P Exam - PIPE LINE WALKER [facility] Medical Records Department [address] [place] [address] H P Exam - PIPE LINE WALKER 07/20/20 1903 MR#: [id number] Acct: [id number] Name: VALERIO NUNEZ Rep #: [id number] : 1995 24 From: Brandan Puga MD PCP: Care Physician, No Primary Status:REG CLI Location: [id number] HPI - General General Date of Admission: 07/20/20 Chief Complaint: Ulloa ripening of the cervix. HPI Narrative VALERIO NUNEZ, is a 24 F who presents for Ulloa cervical ripening for elective induction of labor. She is a 1 para 0 who presents with EDC of 07/20/2020 at 40 weeks 0 days. PFSH Home Medications vit,[id number] [Prenatabs FA] 1 tab PO DAILY 07/20/20 [...] Dr. Brandan Puga MD on 07/20/20 at 1914 Addendum Ulloa placed through the internal cervical os in the usual sterile fashion with a stylette. Balloon was inflated to 30 cc and placement over the internal os was confirmed. Cervix is 1/60/-2, posterior and medium consistency. 07/20/201913 Cosigner Signature (if applicable): cc: No Primary Care Physician; Dr. Brandan Puga MD * Signed Normal [facility] PT/INR Capillaryon 8 INR Coag RelTime (Bld) 2.1 {INR} High 1.0-1.2 [facility] Comment on above: Result Comment: Sour ce Capillary Performed By: #### 8 [id number] ####[facility] [id number] [place] [address] PT POC 25.0 second(s) High 8.0-11.0 [facility] Comment on above: Performed By: #### 8 [id number] ####[facility] [id number] [place] [address] PT/INR POC Orderon 8 INR Coag RelTime (Bld) Collected Normal [facility] Comment on above: Performed By: #### 8 [id number] ####[facility] [address] [place] [address] PT/INR Capillaryon 8 INR Coag RelTime (Bld) 1.7 {INR} High 1.0-1.2 [facility] Comment on above: Result Comment: Sour ce Capillary Performed By: #### 8 [id number] ####[facility] [id number] [place] [address] 337[address] PT POC 20.0 second(s) High 8.0-11.0 [facility] Comment on above: Performed By: #### 8 [id number] ####[facility] [id number] [place] [address] PT/INR POC Orderon 8 INR Coag RelTime (Bld) Collected Normal [facility] Comment on above: Performed By: #### 8 [id number] ####[facility] [id number] [place] [address] PT/INR Capillaryon 8 INR Coag RelTime (Bld) 1.5 {INR} High 1.0-1.2 [facility] Comment on above: Result Comment: Sour ce Capillary Performed By: #### 8 [id number] ####[facility] [address] [place] [address] PT POC 17.0 second(s) High 8.0-11.0 [facility] Comment on above: Performed By: #### 8 [id number] ####[facility] [id number] [place] [address] PT/INR POC Orderon 8 INR Coag RelTime (Bld) Collected Normal [facility] Comment on above: Performed By: #### 8 [id number] ####[facility] [id number] [place] [address] Chlamydia GC by PCRon 2017 Chlamydia by PCR. Not Detected Normal Not Detected [facility] Comment on above: Result Comment: Xper t CT/NG Assay performance has not been evaluated in patients less than 14 years of age. Performed By: #### 8 [id number] ####[facility] [address] [place] [address] Gonorrhoeae by PCR Not Detected Normal Not Detected [facility] Comment on above: Result Comment: Xper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 Dx) Start: 02-06-2023 End: 02-06-2023 Patient encounter procedure Fabigarima Farah TIRE SERVICE SUPERVISOR.AIRCRAFT DESIGNER Work Phone: [facility] Comment on above: Bacterial sinusitis (Primary Dx) Start: 11-24-2022 Telephone encounter Fabi Hein shemar TIRE SERVICE SUPERVISOR.AIRCRAFT DESIGNER Work Phone: [facility] [place] Comment on above: Results Start: 11-14-2022 Refill Leonie Brandon MD Work Phone: OB/Gynecology Comment on above: Refill Request Start: 10-13-2022 End: 10-13-2022 Patient encounter procedure Leonie Brandon MD Work Phone: OB/Gynecology Comment on above: Encounter for gyneco logical examination (general) (routine) without abnormal findings (Primary Dx); PCOS (polycystic ovarian syndrome) Start: 10-13-2022 End: 10-13-2022 Patient encounter status Leonie Brandon MD Work Phone: [facility] Start: 10-06-2022 Telephone encounter Frank pulido DO Work Phone: [facility] [place] Comment on above: Medication Problem Start: 09-08-2022 Refill Fabi Farah TIRE SERVICE SUPERVISOR.AIRCRAFT DESIGNER Work Phone: [facility] [place] Comment on above: Refill Request Start: 05-22-2022 Refill Rosana Palma maria elena TIRE SERVICE SUPERVISOR.AIRCRAFT DESIGNER Work Phone: [facility] [place] Comment on above: Refill Request Start: 01-21-2022 End: 01-21-2022 Patient encounter procedure Frank Marinelli DO Work Phone: [facility] [place] Comment on above: Atypical pigmented s kin lesion (Primary Dx) Start: 12-07-2021 Refill Frank staton DO Work Phone: [facility] [place] Comment on above: Refill Request Start: 12-04-2021 Telephone encounter Frank pulido DO Work Phone: [facility] [place] Comment on above: Patient Question Start: 12-03-2021 ambulatory Frank Arguelles son DO [facility] Phone[facility] Comment on above: Who to see about emma gillis? Start: 10-11-2021 ambulatory Leonie Brandon MD Work Phone: OB/Gynecology Comment on above: BOOKS Start: 10-11-2021 E-mail encounter fro m caregiver Leonie Brandon MD [facility] Start: 10-11-2021 End: 10-11-2021 Patient encounter procedure Leonie Brandon MD Work Phone: OB/Gynecology Comment on above: Encounter for gyneco logical examination (general) (routine) without abnormal findings (Primary Dx); Screening for cervical cancer; PCOS (polycystic ovarian syndrome) Start: 10-11-2021 End: 10-11-2021 Patient encounter status Leonie Brandon MD Work Phone: OB/Gynecology Start: 10-09-2021 Refill Brandan hahn MD Work Phone: OB/Gynecology Comment on above: Refill Request Start: 08-14-2021 Refill Brandan hahn MD Work Phone: OB/Gynecology Comment on above: Refill Request Start: 06-12-2021 Telephone encounter Rosana Bowles [employer]INITY.AIRCRAFT DESIGNER Work Phone: [facility] [place] Comment on above: Results Start: 06-04-2021 End: 06-04-2021 [facility] Frank Marinelli DO Work Phone: [facility] [place] Comment on above: Fatigue, unspecified type (Primary Dx); Night sweats; Depressed mood; Flushing; Irritability; Hair thinning; Screening for lipid disorders; Screening for diabetes mellitus Start: 11-10-2019 End: 08-01-2020 Patient requested procedure Rosana Leslie TRINITY.AIRCRAFT DESIGNER Work Phone: [facility] Start: 10-14-2017 End: 10-15-2017 Patient encounter Abad Sutherland [facility] Facility:[facility] Start: 09-04-2017 End: 09-05-2017 Patient encounter Abad P [facility] Facility:[facility] Start: 09-04-2017 End: 09-05-2017 Patient encounter Abad Ena [facility] Facility:[facility] Start: 09-04-2017 Patient encounter Facil [id number] Start: 07-28-2017 End: 07-28-2017 Ambulatory [facility] Start: 07-24-2017 End: 11-24-2017 Patient encounter Christy Cortes Facility:[facility] Procedures Date Procedure Procedure Detail Performing Clinician Start: 10-19-2024 Urnls dip stick/tabl et rgnt non-auto w/o micrscp Brandan Puga MD Work Phone: Start: 10-07-2024 Urnls dip stick/tabl et rgnt non-auto w/o micrscp Leonie Brandon MD Work Phone: Start: 09-30-2024 Urnls dip stick/tabl et rgnt non-auto w/o micrscp Kelsi Hall TIRE SERVICE SUPERVISOR.CNM Work Phone: Start: 09-30-2024 Us preg uterus after 1st trimest 1/ gestation Kelsi Hall TIRE SERVICE SUPERVISOR.CNM Work Phone: Start: 09-23-2024 Urnls dip stick/tabl et rgnt non-auto w/o micrscp Liset Castañeda MD Work Phone: Start: 09-02-2024 Us preg uterus after 1st trimest 1/ gestation Kelsi Hall TIRE SERVICE SUPERVISOR.CNM Work Phone: Start: 06-17-2024 Us preg uterus after 1st trimest 1/ gestation Max Welchdereje TIRE SERVICE SUPERVISOR.AIRCRAFT DESIGNER Work Phone: Start: 04-15-2024 Antibody screen FRANK MARINELLI Comment on above: Order Comment: Speci men Type: BLOOD SPECIMEN Ordering Facility: [facility] Address: [address] [place] [address] Performed By: #### T SPN #### CC MAIN BLOOD BANK [facility] [id number] [address] [place] [address] [place] Start: 03-18-2024 Us uterus limited 1/> fetuses Max Welchdereje TIRE SERVICE SUPERVISOR.AIRCRAFT DESIGNER Work Phone: Start: 03-18-2024 Adult depression screening assessment Liset Castañeda MD Work Phone: Start: 11-23-2017 Adult depression screening assessment Frank Marinelli DO Work Phone: Plan of Treatment Date Care Activity Detail Author Start: 08-12-2034 Urine microalbumin profile DTaP,Tdap,Td Vaccine (4 - Td or Tdap) [facility] Start: 04-27-2030 Urine microalbumin profile [facility] Start: 03-18-2027 Screening for malign ant neoplasm of cervix Cervical Cancer Screening [facility] Start: 03-18-2025 Anxiety Screening Anxiety Screening [facility] Start: 03-18-2025 Depression Screening Depression Scre ening [facility] Start: 12-02-2024 End: 12-02-2024 Patient encounter procedure 12/02/2024 10:00 AM EDT Office Visit OB/Gynecology [address] [place] [address] Meredith Dorman APRN.AIRCRAFT DESIGNER [address] [place] [address] 6 week post OB/Gynecology Comment on above: 6 week post Start: 11-07-2024 Influenza vaccination [facility] Start: 10-28-2024 End: 10-28-2024 Patient encounter procedure 10/28/2024 2:00 PM EDT Office Visit OB/Gynecology [address] [place] [address] Kelsi Hall APRN.CNM [address] [place] [address] 1 week post OB/Gynecology Comment on above: 1 week post Start: 10-19-2024 End: 10-19-2024 Patient encounter procedure OB/Gynecology Comment on above: NST NST/OB Start: 10-19-2024 End: 10-19-2024 Patient encounter procedure 10/19/2024 11:20 AM EDT Office Visit OB/Gynecology [address] [place] [address] Leonie Ponce MD [address] [place] [address] ANnual OB/Gynecology Comment on above: ANnual Start: 10-18-2024 End: 10-18-2024 Patient encounter procedure 10/18/2024 4:00 PM EDT Office Visit OB/Gynecology [address] [place] [address] Leonie Ponce MD [address] [place] [address] Anuual OB/Gynecology Comment on above: Anuual Start: 10-13-2024 End: 10-13-2024 Patient encounter procedure OB/Gynecology Comment on above: NST NST/OB Start: 10-11-2024 PAP TESTING PAP TESTING [facility] Start: 10-11-2024 Screening for malign ant neoplasm of cervix [facility] Start: 10-07-2024 End: 10-07-2024 Patient encounter [...] [facility] [address] [place] [address] Growth [facility] Comment on above: Growth Start: 08-26-2024 End: 08-26-2024 Patient encounter procedure 08/26/2024 9:50 AM EDT Routine Office Visit OB/Gynecology [address] [place] [address] Liset Castañeda MD [address] [place] [address] OB OB/Gynecology Comment on above: OB Start: 08-12-2024 End: 08-12-2024 Patient encounter procedure 08/12/2024 10:00 AM EDT Routine Office Visit OB/Gynecology [address] [place] [address] Kelsi Hall APRN.[facility] [address] [place] [address] Ob OB/Gynecology Comment on above: Ob Start: 07-18-2024 End: 07-18-2024 Patient encounter procedure 07/18/2024 3:15 PM EDT Routine Office Visit OB/Gynecology [address] [place] [address] Kelsi Hall APRN.CNM [address] [place] [address] ob OB/Gynecology Comment on above: ob Start: 07-18-2024 End: 2024 ANEMIA REFLEX PANEL ANEMIA REFLEX PANEL Lab Routine Supervision of high risk in second trimester (HCC) 25 weeks gestation of (HCC) Supervision of other normal , antepartum (HCC) Expected: 07/18/2024, Expires: 2024 [facility] Comment on above: Expected: 07/18/2024 , Expires: 2024 Start: 07-18-2024 End: 07-18-2025 GESTATIONAL GLUCOSE SCREEN, 1-HOUR, 50 GRAM, NON-FASTING GESTATIONAL GLUCOSE SCREEN, 1-HOUR, 50 GRAM, NON-FASTING Lab Routine Supervision of high risk in second trimester (HCC) 25 weeks gestation of (HCC) Screening for diabetes mellitus Expected: 07/18/2024, Expires: 07/18/2025 [facility] Work Phone: Comment on above: Expected: 07/18/2024 , Expires: 07/18/2025 Start: 07-18-2024 End: 07-18-2025 SYPHILIS TREPONEMAL W/REFLEX SYPHILIS TREPONEMAL W/REFLEX Lab Routine Supervision of high risk in second trimester (HCC) 25 weeks gestation of (HCC) Supervision of other normal , antepartum (HCC) Expected: 07/18/2024, Expires: 07/18/2025 [facility] Comment on above: Expected: 07/18/2024 , Expires: 07/18/2025 Start: 06-17-2024 End: 06-17-2024 Patient encounter procedure [facility] Comment on above: Anatomy Scan OB Routine Start: 05-20-2024 End: 05-20-2024 Patient encounter procedure 05/20/2024 8:30 AM EDT Routine Office Visit OB/Gynecology [address] [place], [place] [id number] Sofya Portillo MD [address] [place] [address] OB Routine OB/Gynecology Comment on above: OB Routine Start: 04-19-2024 End: 04-19-2024 Patient encounter procedure 04/19/2024 12:50 PM EST Routine Office Visit OB/Gynecology [address] [place] [address] Liset Castañeda MD [address] [place] [address] New OB LMP 01/11/2024 OB/Gynecology Comment on above: New OB LMP 01/11/2024 Start: 03-18-2024 End: 06-17-2024 ANEMIA REFLEX PANEL ANEMIA REFLEX PANEL Lab Routine with uncertain dates in first trimester Expected: 03/18/2024, Expires: 06/17/2024 [facility] Work Phone: Comment on above: Expected: 03/18/2024 , Expires: 06/17/2024 Start: 03-18-2024 End: 06-17-2024 Hemoglobin A1c in Blood HEMOGLOBIN A1C Lab Routine with uncertain dates in first trimester Expected: 03/18/2024, Expires: 06/17/2024 [facility] Comment on above: Expected: 03/18/2024 , Expires: 06/17/2024 Start: 03-18-2024 End: 06-17-2024 Hepatitis B virus surface Ag [Presence] in Serum HEPATITIS B SURFACE ANTIGEN Lab Routine with uncertain dates in first trimester Expected: 03/18/2024, Expires: 06/17/2024 [facility] Comment on above: Expected: 03/18/2024 , Expires: 06/17/2024 Start: 03-18-2024 End: 06-17-2024 Hepatitis C virus Ab [Presence] in Serum HEPATITIS C ANTIBODY IA WITH CONFIRMATION Lab Routine with uncertain dates in first trimester Expected: 03/18/2024, Expires: 06/17/2024 [facility] Comment on above: Expected: 03/18/2024 , Expires: 06/17/2024 Start: 03-18-2024 End: 06-17-2024 HIV 1+2 Ab [Presence] in Serum or Plasma by Immunoassay HIV 1/2 COMBO WITH REFLEX TO DIFFERENTIATION Lab Routine with uncertain dates in first trimester Expected: 03/18/2024, Expires: 06/17/2024 [facility] Comment on above: Expected: 03/18/2024 , Expires: 06/17/2024 Start: 03-18-2024 End: 03-18-2025 NUCHAL TRANSLUCENCY WHI NUCHAL TRANSLUCENCY WHI Anc Imaging Routine Encounter for supervision of high risk in first trimester, antepartum 8 weeks gestation of Expected: 03/18/2024, Expires: 03/18/2025 [facility] Comment on above: Expected: 03/18/2024 , Expires: 03/18/2025 Start: 03-18-2024 End: 03-18-2025 OBSTETRIC ULTRASOUND WHI OBSTETRIC ULTRASOUND WHI Anc Imaging Routine with uncertain dates in first trimester Expected: 03/18/2024, Expires: 03/18/2025 [facility] Comment on above: Expected: 03/18/2024 , Expires: 03/18/2025 Start: 03-18-2024 End: 06-17-2024 RUBELLA IGG ANTIBODY RUBELLA IGG ANTIBODY Lab Routine with uncertain dates in first trimester Expected: 03/18/2024, Expires: 06/17/2024 [facility] Comment on above: Expected: 03/18/2024 , Expires: 06/17/2024 Start: 03-18-2024 End: 06-17-2024 SYPHILIS TREPONEMAL W/REFLEX SYPHILIS TREPONEMAL W/REFLEX Lab Routine with uncertain dates in first trimester Expected: 03/18/2024, Expires: 06/17/2024 [facility] Comment on above: Expected: 03/18/2024 , Expires: 06/17/2024 Start: 03-18-2024 End: 06-17-2024 TYPE + SCREEN TYPE + SCREEN Blood Bank Routine with uncertain dates in first trimester Expected: 03/18/2024, Expires: 06/17/2024 [facility] Comment on above: Expected: 03/18/2024 , Expires: 06/17/2024 Start: 11-21-2023 Covid-19 Vaccine ( season) Covid-19 Vaccine () [facility] Comment on above: Postponed from 11/07 (Declined at this time) Start: 11-21-2023 Covid-19 Vaccine (3 - Pfizer series) Covid-19 Vaccine (3 - Pfizer series) [facility] Comment on above: Postponed from 03/26 (Declined at this time) Start: 11-21-2023 HPV Vaccine (2 - 3-d ose series) HPV Vaccine (2 - 3-dose series) [facility] Comment on above: Postponed from 12/21 (Declined at this time) Start: 11-08-2023 Covid-19 Vaccine () Covid-19 Vaccine () [facility] Start: 11-08-2023 Influenza vaccination C [facility] Start: 10-19-2023 End: 10-19-2023 Patient encounter procedure 10/19/2023 11:20 AM EDT Office Visit OB/Gynecology [address] [place] [id number] Leonie Ponce MD [address] [place] [id number] Annual OB/Gynecology Comment on above: Annual Start: 09-06-2023 Influenza vaccination Influenza Vacc ine (#1) [facility] Comment on above: Postponed from 11/07 (Declined at this time) Start: 08-14-2023 End: 08-14-2023 Patient encounter procedure 08/14/2023 9:00 AM EDT Office Visit Family Medicine [facility] [address] [place] [id number] Fabi Farah APRN.AIRCRAFT DESIGNER [address] [place] [id number] 3 month f/up adipex [facility] [place] Comment on above: 3 month f/up adipex Start: 03-09-2023 Behavioral Health Screening Behavioral Health Screening [facility] Start: 03-09-2023 [facility] Start: 02-23-2023 End: 04-25-2023 Cobalamin (Vitamin B12) [Mass/volume] in Serum or Plasma VITAMIN B12 BLOOD Lab Routine Elevated vitamin B12 level Expected: 02/23/2023, Expires: 04/25/2023 [facility] Work Phone: Comment on above: Expected: 02/23/2023 , Expires: 04/25/2023 Start: 11-07-2022 Influenza vaccination INFLUENZA (#1) [facility] Start: 09-05-2022 Influenza vaccination INFLUENZA (#1) [facility] Comment on above: Postponed from 11/07 (Declined at this time) Start: 03-09-2022 DEPRESSION [facility]ESSMENT [facility] Start: 02-11-2022 PAP TESTING PAP TESTING [facility] Start: 11-07-2021 Influenza vaccination C [facility] Start: 09-04-2021 End: 11-04-2021 Hemoglobin A1c/Hemoglobin.total in Blood HGB A1C Lab Routine Screening for diabetes mellitus Expected: 09/04/2021 (Approximate), Expires: 11/04/2021 [facility] Work Phone: Comment on above: Expected: 09/04/2021 (Approximate), Expires: 11/04/2021 Start: 06-29-2021 COVID-19 VACCINE (3 - Booster for Pfizer series) COVID-19 VACCINE (3 - Booster for Pfizer series) [facility] Start: 06-04-2021 End: 08-04-2021 C reactive protein [Mass/volume] in Serum or Plasma C-REACTIVE PROTEIN (CRP) Lab Routine Fatigue, unspecified type Night sweats [place] Irritability Expected: 06/04/2021, Expires: 08/04/2021 [facility] Work Phone: Comment on above: Expected: 06/04/2021 , Expires: 08/04/2021 Start: 06-04-2021 End: 08-04-2021 CBC panel - Blood by Automated count CBC Lab Routine [place] Expected: 06/04/2021, Expires: 08/04/2021 [facility] Work Phone: Comment on above: Expected: 06/04/2021 , Expires: 08/04/2021 Start: 06-04-2021 End: 08-04-2021 Comprehensive metabolic 2000 panel - Serum or Plasma COMP METABOLIC PANEL Lab Routine [place] Expected: 06/04/2021, Expires: 08/04/2021 [facility] Work Phone: Comment on above: Expected: 06/04/2021 , Expires: 08/04/2021 Start: 06-04-2021 End: 08-04-2021 Heterophile Ab [Presence] in Serum by Latex agglutination MONOTEST, INFECTIOUS MONO Lab Routine Fatigue, unspecified type Night sweats [place] Expected: 06/04/2021, Expires: 08/04/2021 [facility] Work Phone: Comment on above: Expected: 06/04/2021 , Expires: 08/04/2021 Start: 06-04-2021 End: 08-04-2021 LIPID PANEL BASIC LIPID PANEL BASIC Lab Routine Screening for lipid disorders Expected: 06/04/2021, Expires: 08/04/2021 [facility] Work Phone: Comment on above: Expected: 06/04/2021 , Expires: 08/04/2021 Start: 06-04-2021 End: 08-04-2021 T3 FREE BLD T3 FREE BLD Lab Routine Fatigue, unspecified type Night sweats Depressed mood [place] Irritability Hair thinning Expected: 06/04/2021, Expires: 08/04/2021 [facility] Work Phone: Comment on above: Expected: 06/04/2021 , Expires: 08/04/2021 Start: 06-04-2021 End: 08-04-2021 T4 FREE/FREE THYROX T4 FREE/FREE THYROX Lab Routine Fatigue, unspecified type Night sweats Depressed mood [place] Irritability Hair thinning Expected: 06/04/2021, Expires: 08/04/2021 [facility] Work Phone: Comment on above: Expected: 06/04/2021 , Expires: 08/04/2021 Start: 06-04-2021 End: 08-04-2021 Thyrotropin [Units/volume] in Serum or Plasma TSH BLD Lab Routine Fatigue, unspecified type Night sweats Depressed mood [place] Irritability Hair thinning Expected: 06/04/2021, Expires: 08/04/2021 [facility] Work Phone: Comment on above: Expected: 06/04/2021 , Expires: 08/04/2021 Start: 06-04-2021 End: 08-04-2021 VITAMIN B12 BLOOD VITAMIN B12 BLOOD Lab Routine Fatigue, unspecified type Night sweats Expected: 06/04/2021, Expires: 08/04/2021 [facility] Work Phone: Comment on above: Expected: 06/04/2021 , Expires: 08/04/2021 Start: 06-04-2021 End: 08-04-2021 VITAMIN D 25 HYDROXY VITAMIN D 25 HYDROXY Lab Routine Fatigue, unspecified type Night sweats Expected: 06/04/2021, Expires: 08/04/2021 [facility] Work Phone: Comment on above: Expected: 06/04/2021 , Expires: 08/04/2021 Start: 03-26-2021 COVID-19 VACCINE (3 - Booster for Pfizer series) COVID-19 VACCINE (3 - Booster for Pfizer series) [facility] Start: 03-26-2021 COVID-19 VACCINE (3 - Pfizer series) COVID-19 VACCINE (3 - Pfizer series) [facility] Start: 03-09-2021 DEPRESSION ASSESSMENT DEPRESSION ASS ESSMENT [facility] Start: 12-07-2020 CHLAMYDIA SCREENING (18-24) CHLAMYDIA SCREENING (18-24) [facility] Start: 12-07-2020 GC (GONORRHEA) SCREENING (18-24) GC (GONORRHEA) SCREENING (18-24) [facility] Start: 11-07-2020 Influenza vaccination INFLUENZA (#1) [facility] Start: 11-23-2018 Adult depression screening assessment DEPRESSION SCREENING [facility] Start: 12-21-2017 HPV VACCINE (2 - 3-d ose series) HPV VACCINE (2 - 3-dose series) [facility] Start: 2016 Hepatitis B Vaccine (1 of 3 - 19+ 3-dose series) Hepatitis B Vaccine (1 of 3 - 19+ 3-dose series) [facility] Start: 10-18-2015 Anxiety Screening Anxiety Screening [facility] Start: 10-18-2015 Depression Screening Depression Scre ening [facility] Start: 2013 MENINGOCOCCAL B: Consider based on risk (1 of 2 - Patient Seeks Protection) MENINGOCOCCAL B: Consider based on risk (1 of 2 - Patient Seeks Protection) [facility] Start: 10-18-2011 PEDS TO ADULT TRANSITION ANNUAL ASSESSMENT PEDS TO ADULT TRANSITION ANNUAL ASSESSMENT [facility] Start: 2009 PEDS TO ADULT TRANSITION INITIAL DISCUSSION PEDS TO ADULT TRANSITION INITIAL DISCUSSION [facility] Start: 10-18-2007 MENINGOCOCCAL B: Consider based on risk (1 of 2 - Risk Bexsero 2-dose series) MENINGOCOCCAL B: Consider based on risk (1 of 2 - Risk Bexsero 2-dose series) [facility] Start: 1997 HEPATITIS B (1 of 3 - 3-dose series) HEPATITIS B (1 of 3 - 3-dose series) [facility] Start: 1997 Hepatitis B Vaccine (1 of 3 - 3-dose series) Hepatitis B Vaccine (1 of 3 - 3-dose series) [facility] Bacteria identified in Urine by Culture BACTERIAL CULTURE, URINE Microbiology Routine with uncertain dates in first trimester 03/18/2024 10:15 AM EST [facility] Chlamydia trachomatis+Neisseria gonorrhoeae DNA [Presence] in Unspecified specimen by DIONNA with probe detection GONORRHEA/CHLAMYDIA NAAT Lab Routine with uncertain dates in first trimester 03/18/2024 10:15 AM EST [facility] nonstress test NON-S TRESS TEST Procedures Routine Other obesity affecting in third trimester (HCC) Ordered: 08/12/2024 [facility] Comment on above: Ordered: 08/12/2024 End: 12-01-2024 nonstress test NON-STRESS TEST Procedures Routine Supervision of high risk in third trimester (HCC) Other obesity affecting in third trimester (HCC) Every other week for 10 Occurrences starting 09/02/2024 until 12/01/2024 [facility] Work Phone: Comment on above: Every other week for 10 Occurrences starting 09/02/2024 until 12/01/2024 End: 02-08-2025 OBSTETRIC ULTRASOUND WHI OBSTETRIC ULTRASOUND WHI Anc Imaging Routine Other obesity affecting in third trimester (HCC) History of vacuum extraction assisted delivery Once per month for 5 Occurrences starting 08/12/2024 until 02/08/2025 [facility] Work Phone: Comment on above: Once per month for 5 Occurrences starting 08/12/2024 until 02/08/2025 PAP FLUID CERVICAL SCREENING PAP FLUID CERVICAL SCREENING Lab Routine Screening for cervical cancer 10/11/2021 1:40 PM EDT [facility] Work Phone: PAP TEST PAP TEST Lab Tana daniels Encounter for supervision of high risk in first trimester, antepartum Screening for cervical cancer 03/18/2024 10:15 AM EST [facility] ROUTINE, GR OUP B STREPTOCOCCUS BY PCR ROUTINE, GROUP B STREPTOCOCCUS BY PCR Microbiology Routine 36 weeks gestation of ([facility]) Supervision of high risk in third trimester (HCC) Polyhydramnios in third trimester complication, single or unspecified fetus (HCC) Other obesity affecting in third trimester (HCC) 09/30/2024 10:10 AM EDT [facility] Work Phone: SURGICAL PATHOLOGY SURGICAL PATH OLOGY Lab Routine Atypical pigmented skin lesion Ordered: 01/21/2022 [facility] Work Phone: Comment on above: Ordered: 01/21/2022 URINE OB DIP B/O URINE OB DIP B/ O Lab Routine Polyhydramnios in third trimester complication, single or unspecified fetus (HCC) Other obesity affecting in third trimester (HCC) 34 weeks gestation of (HCC) Ordered: 09/16/2024 [facility] Work Phone: Comment on above: Ordered: 09/16/2024 [facility] Immunizations Immunization Date Immunization Notes Care Provider Stoney trinh 08-12-2024 tetanus toxoid, redu ever diphtheria toxoid, and acellular pertussis vaccine, adsorbed Kelsi Crockettcarmina TIRE SERVICE SUPERVISOR.CNM Work Phone: [facility] 04-27-2020 tetanus toxoid, redu ever diphtheria toxoid, and acellular pertussis vaccine, adsorbed Frank Marinelli DO Work Phone: [facility] 12-21-2017 influenza virus vacc ine, unspecified formulation Fabi Farah TIRE SERVICE SUPERVISOR.AIRCRAFT DESIGNER Work Phone: [facility] 10-30-2008 meningococcal ACWY vaccine, unspecified formulation Frank Marinelli DO Work Phone: [facility] Work Phone: Payers Date Payer Category Payer Private Health Insurance [employer] [id number] 2020-Present [phone] [address] [place] [address] Open Access [id number] 2020 Private Health Insurance [id number] 2020 Private Health Insurance [id number] 2018 Unknown MMO MMO [employer] [id number] 2018-Present [phone] [address] [place] [address] O [id number] 2018 Unknown [id number] 2017 Unknown Social History Date Type Detail Facility Start: 11-23-2017 End: 01-21-2022 Tobacco smoking status NHIS Never smoked tobacco [facility] Start: 11-23-2017 End: 01-21-2022 Tobacco use and exposure Smokeless tobacco non-user [facility] Start: 09-04-2020 End: 09-30-2024 Alcohol intake Current non-drinker of alcohol (finding) [facility] Start: 06-03-2021 History SDOH Alcohol Frequency 2 [facility] Start: 06-03-2021 History SDOH Alcohol Std Drinks 1 [facility] Start: 06-03-2021 History SDOH Social Connections Phone 5 [facility] Start: 06-03-2021 History SDOH Social Connections [facility] 3 [facility] Start: 06-03-2021 History SDOH Social Connections Living 8 [facility] Start: 06-03-2021 History SDOH Stress 4 [facility] Start: 11-10-2019 Education 13 [facility] Start: 1995 Sex Assigned At Not on file C [facility] Start: 05-28-2021 End: 01-21-2022 Exposure to SARS-CoV-2 (event) Not sure [facility] Start: 06-02-2021 End: 10-13-2022 History of Social function [facility] Start: 06-02-2021 End: 10-13-2022 Social connection and isolation panel [facility] Do you belong to any clubs or organizations such as buddhism groups, unions, fraternal or athletic groups, or school groups? No [facility] Are you now , , , , never or living with a partner? Living with partner [facility] How often to you hav e a drink containing alcohol? Monthly or less [facility] How many standard dr inks containing alcohol do you have on a typical day? 1 or 2 [facility] How often do you hav e 6 or more drinks on 1 occasion? Never [facility] Start: 10-07-2017 How hard is it for y ou to pay for the very basics like food, housing, medical care, and heating Not hard at all [facility] Do you feel stress - tense, restless, nervous, or anxious, or unable to sleep at night because your mind is troubled all the time - these days [OSQ] Rather much [facility] (I/We) worried adriana er (my/our) food would run out before (I/we) got money to buy more. Never true [facility] Start: 02-05-2024 [facility] Goals Date Patient Goal Desired Activity [...] Supervision of high risk in third trimester ([facility]) - ICD9: V23.9, ICD10: O09.93 (primary diagnosis) - URINE OB DIP B/O 2. Other obesity affecting in third trimester ([facility]) - ICD9: 649.13, 278.00, ICD10: O99.213, E66.89 NST reactive, plan induction of labor at 39 weeks - URINE OB DIP B/O 3. Polyhydramnios in third trimester complication, single or unspecified fetus ([facility]) - ICD9: 657.03, ICD10: O40.3XX0 - URINE OB DIP B/O 4. 38 weeks gestation of ([facility]) - ICD9: V22.2, ICD10: Z3A.38 - URINE OB DIP B/O Brandan Puga MD [facility] 10-19-2024 Miscellaneous Notes RR- VB No. LOF No. CTXS No. Movement: present. Other c/o: No. Medication list reviewed. SENSITIVE EXAM: Sensitive exam not performed. Physical Exam See Flow Sheet Abd: soft, nontender, gravid Ext: edema: 1+ A/P 38w5d Estimated Date of Delivery: 10/28/24 ASSESSMENT/PLAN: 1. Supervision of high risk in third trimester ([facility]) - ICD9: V23.9, ICD10: O09.93 (primary diagnosis) - URINE OB DIP B/O 2. Other obesity affecting in third trimester ([facility]) - ICD9: 649.13, 278.00, ICD10: O99.213, E66.89 NST reactive, plan induction of labor at 39 weeks - URINE OB DIP B/O 3. Polyhydramnios in third trimester complication, single or unspecified fetus ([facility]) - ICD9: 657.03, ICD10: O40.3XX0 - URINE OB DIP B/O 4. 38 weeks gestation of ([facility]) - ICD9: V22.2, ICD10: Z3A.38 - URINE OB DIP B/O Brandan Puga MD documented in this encounter [facility] 10-19-2024 Note HNO ID: [id number] Author: BRANDAN PUGA MD Service: ? Author Type: Physician Type: Progress Notes Filed: 10/19/2024 16:44 Note Text: NST SUMMARY PROVIDER ASSESSMENT AND INTERPRETATION Valerio Nunez is a 29 year old female, , who is at 38w5d with an DONNELL of 10/28/2024, by Ultrasound dating method. Indications for NST: Obesity Baseline: 135 Variability: Moderate Accelerations: Present 15 X 15 Decelerations: None Contractions: TOCO: Irregular Interpretation: Reactive SIGNATURE: Brandan Puga MD [facility] 10-19-2024 History of Presen t illness Narrative NST SUMMARY PROVIDER ASSESSMENT AND INTERPRETATION Valerio Nunez is a 29 year old female, , who is at 38w5d with an DONNELL of 10/28/2024, by Ultrasound dating method. Indications for NST: Obesity Baseline: 135 Variability: Moderate Accelerations: Present 15 X 15 Decelerations: None Contractions: TOCO: Irregular Interpretation: Reactive SIGNATURE: Brandan Puga MD documented in this encounter [facility] 10-19-2024 Instructions Dixie Stauffer MA - 10/19/2024 2:32 PM EDT SEQUENTIAL SCREENINGS [facility] offers sequential screenings for women who [...] It will require an appointment with our orthophotography technician. This is not an ultrasound performed [...] the above symptoms, contact our office at [phone] and ask to speak with a nurse. After hours, you can call doctors registry at [phone] OR call [facility] at [phone] and ask to have the doctor tax consultant paged. If you consider this an emergency, dial 9-1-0 or go to your nearest emergency department. NEED HELP? Are you dealing with a violent or abusive relationship? Are you a victim of rape or sexual assult? Call [facility] [place] ([facility] 24 hour Crisis Hotline: 627.522.8480 or 817-389-8936. MANUAL Your Guide to a Healthy manual is now on-line. Visit [email or web address] to download your free copy documented in this encounter [facility] 10-14-2024 Note HNO ID: [id number] Author: DAPHNIE VILLAFUERTE, ? Service: ? Author Type: Patient Research Dairy Farm Supervisor Type: Progress Notes Filed: 10/14/2024 07:20 Note Text: POPULATION HEALTH NAVIGATION OUTREACH Action/FYI No outreach done added pediarician via note Reason for Outreach Medicaid OB/Peds Care Gaps due: N/A Patient Contacted: Unable or unnecessary to reach patient: [place] acid cutter added Navigation Signature: Daphnie Villafuerte Population Health Navigator October 14, 2024 7:19 AM [facility] 10-14-2024 Note Patient Outreach (NE TNAV) VALERIO NUNEZ ([id number]) 1995 F Date Time Provider Department 10/14/24 DAPHNIE VILLAFUERTEV During your visit today, we recorded the following information about you: Daphnie Villafuerte 10/14/2024 7:20 AM Signed POPULATION HEALTH NAVIGATION OUTREACH Action/FYI No outreach done added pediarician via note Reason for Outreach Medicaid OB/Peds Care Gaps due: N/A Patient Contacted: Unable or unnecessary to reach patient: acid cutter added Navigation Signature: Daphnie Villafuerte Population Health [...] 1 tablet by mouth once daily. - [id number] tab Take 1 tablet by mouth once [...] Encounter Status:Closed by DAPHNIE VILLAFUERTE on 10/14/24 [facility] 10-13-2024 Note HNO ID: [id number] Author: KELSI HALL APRN.CNM Service: ? Author Type: Aircraft Maintenance Director Type: Progress Notes Filed: 10/13/2024 11:44 Note Text: NST SUMMARY PROVIDER ASSESSMENT AND INTERPRETATION Valerio Nunez is a 28 year old female, , who is at 37w6d with an DONNELL of 10/28/2024, by Ultrasound dating method. Indications for NST: Obesity and Polyhydramnios Baseline: 130 Variability: Moderate Accelerations: Present 15 X 15 Decelerations: None Contractions: TOCO: Irritability Interpretation: Reactive SIGNATURE: Kelsi Hall APRN.CNM [facility] 10-07-2024 Progress note Formatting of t his [...] B/O Other obesity affecting in third trimester ([facility]) Orders: URINE OB DIP B/O 37 weeks gestation of (HCC) Orders: URINE OB DIP B/O Excessive growth [...] kick counts. NST done. Brandan Puga M.D. [facility] 10-07-2024 Miscellaneous Notes RR- VB No. [...] OB DIP B/O 37 weeks gestation of (HCC) Orders: URINE OB DIP B/O Excessive growth [...] Brandan Puga M.D. documented in this encounter [facility] 10-07-2024 Note HNO ID: [id number] Author: BRANDAN PUGA MD Service: ? Author [...] ctxs Interpretation: Reactive SIGNATURE: Brandan Puga MD [facility] 10-07-2024 History of Presen t illness Narrative [...] Brandan Puga MD documented in this encounter [facility] 10-07-2024 Instructions Dixie Stauffer MA - 10/07/2024 8:59 AM EDT SEQUENTIAL SCREENINGS [facility] offers sequential screenings for women who [...] It will require an appointment with our orthophotography technician. This is not an ultrasound performed [...] the above symptoms, contact our office at [phone] and ask to speak with a nurse. After hours, you can call doctors registry at [phone] OR call [facility] at [phone] and ask to have the doctor tax consultant paged. If you consider this an emergency, dial 5-4-8 or go to your nearest emergency department. NEED HELP? Are you dealing with a violent or abusive relationship? Are you a victim of rape or sexual assult? Call [facility] ([place]) 24 hour Crisis Hotline: 150.269.3291 or 087-122-3667. MANUAL Your Guide to a Healthy manual is now on-line. Visit [email or web address] to download your free copy documented in this encounter [facility] 10-03-2024 Telephone encounter Note Message sent to trudy Phelps. Liset Whiting RN [facility] 10-03-2024 Miscellaneous Notes Message sent to trudy Phelps. Liset Whiting, RN documented in this encounter [facility] 09-30-2024 Note Indication Evaluation of growth [...] 15 oz EFW by: Hadlock (HC-AC-FL) Extended Seasonal Greenery Bundler 7.1 mm Extremities / Bony Struc FL [...] office - RTO 1 week for NST/ TIFFNAY - meet with physician to finalize MOD Kelsi Hall APRN.CNM [facility] 09-30-2024 Miscellaneous Notes S: Valerio Nunez [...] Kelsi Hall APRN.CNM documented in this encounter [facility] 09-30-2024 Instructions Barbara Claire MA - 09/30/2024 9:44 AM EDT SEQUENTIAL SCREENINGS [facility] offers sequential screenings for women who [...] It will require an appointment with our orthophotography technician. This is not an ultrasound performed [...] the above symptoms, contact our office at [phone] and ask to speak with a nurse. After hours, you can call doctors registry at [phone] OR call [facility] at [phone] and ask to have the doctor tax consultant paged. If you consider this an emergency, dial 1-6-2 or go to your nearest emergency department. NEED HELP? Are you dealing with a violent or abusive relationship? Are you a victim of rape or sexual assult? Call [facility] ([place]) 24 hour Crisis Hotline: 191.192.6476 or 503-035-7731. MANUAL Your Guide to a Healthy manual is now on-line. Visit [email or web address] to download your free copy documented in this encounter [facility] 09-23-2024 Progress note Formatting of t [...] Supervision of high risk in third trimester ([facility]) - ICD9: V23.9, ICD10: O09.93 (primary diagnosis) - URINE OB DIP B/O 2. Polyhydramnios in third trimester complication, single or unspecified fetus ([facility]) - ICD9: 657.03, ICD10: O40.3XX0 NST weekly - URINE OB DIP B/O 3. Other obesity affecting in third trimester ([facility]) - ICD9: 649.13, 278.00, ICD10: O99.213, E66.89 Growth next week NST weekly - URINE OB DIP B/O 4. 35 weeks gestation of ([facility]) - ICD9: V22.2, ICD10: Z3A.35 - URINE OB DIP B/O Liset Castañeda MD [facility] 09-23-2024 Miscellaneous Notes S: Valerio Nunez [...] Supervision of high risk in third trimester ([facility]) - ICD9: V23.9, ICD10: O09.93 (primary diagnosis) - URINE OB DIP B/O 2. Polyhydramnios in third trimester complication, single or unspecified fetus ([facility]) - ICD9: 657.03, ICD10: O40.3XX0 NST weekly - URINE OB DIP B/O 3. Other obesity affecting in third trimester ([facility]) - ICD9: 649.13, 278.00, ICD10: O99.213, E66.89 Growth next week NST weekly - URINE OB DIP B/O 4. 35 weeks gestation of ([facility]) - ICD9: V22.2, ICD10: Z3A.35 - URINE OB DIP B/O Liset Castañeda MD documented in this encounter [facility] 09-23-2024 Note HNO ID: [id number] Author: LISET CASTAÑEDA MD Service: ? Author Type: Physician Type: Progress Notes Filed: 09/23/2024 09:35 Note Text: NST SUMMARY PROVIDER ASSESSMENT AND INTERPRETATION Indications for NST: Obesity and Polyhydramnios Baseline: 130 Variability: Moderate Accelerations: Present 15 X 15 Decelerations: None Interpretation: Reactive SIGNATURE: Liset Castañeda MD [facility] 09-23-2024 History of Presen t illness Narrative NST SUMMARY PROVIDER ASSESSMENT AND INTERPRETATION Indications for NST: Obesity and Polyhydramnios Baseline: 130 Variability: Moderate Accelerations: Present 15 X 15 Decelerations: None Interpretation: Reactive SIGNATURE: Liset Castañeda MD documented in this encounter [facility] 09-23-2024 Instructions Leni Liz MA - 09/23/2024 8:47 AM EDT SEQUENTIAL SCREENINGS [facility] offers sequential screenings for women who [...] It will require an appointment with our orthophotography technician. This is not an ultrasound performed [...] the above symptoms, contact our office at [phone] and ask to speak with a nurse. After hours, you can call doctors registry at [phone] OR call [facility] at [phone] and ask to have the doctor tax consultant paged. If you consider this an emergency, dial 9--1 or go to your nearest emergency department. NEED HELP? Are you dealing with a violent or abusive relationship? Are you a victim of rape or sexual assult? Call [facility] ([place]) 24 hour Crisis Hotline: 359.147.7922 or 817-657-0773. MANUAL Your Guide to a Healthy manual is now on-line. Visit [email or web address] [email or web address] to download your free copy documented in this encounter [facility] 09-16-2024 Note HNO ID: [id number] Author: YUMIKO CARVER MD Service: ? Author [...] None Interpretation: Reactive SIGNATURE: Yumiko Carver MD [facility] 09-16-2024 History of Presen t illness Narrative NST SUMMARY PROVIDER ASSESSMENT AND INTERPRETATION Valerio Nunez is a 28 year old female, , who is at 34w0d with an DONNELL of 10/28/2024, by Ultrasound dating method. Indications for NST: Obesity Baseline: 130 Variability: Moderate Accelerations: Present 15 X 15 Decelerations: None Contractions: TOCO: None Interpretation: Reactive SIGNATURE: Yumiko Carver MD documented in this encounter [facility] 09-16-2024 Progress note Formatting of t [...] PTL & FM precautions Yumiko Carver MD [facility] 09-16-2024 Miscellaneous Notes KJ - S: [...] Yumiko Carver MD documented in this encounter [facility] 09-16-2024 Instructions Dixie Stauffer MA - 09/16/2024 1:50 PM EDT SEQUENTIAL SCREENINGS [facility] offers sequential screenings for women who [...] It will require an appointment with our orthophotography technician. This is not an ultrasound performed [...] the above symptoms, contact our office at [phone] and ask to speak with a nurse. After hours, you can call doctors registry at [phone] OR call [facility] at [phone] and ask to have the doctor tax consultant paged. If you consider this an emergency, dial 1-8-5 or go to your nearest emergency department. NEED HELP? Are you dealing with a violent or abusive relationship? Are you a victim of rape or sexual assult? Call [facility] ([place]) 24 hour Crisis Hotline: 684.297.1802 or 719-901-8793. MANUAL Your Guide to a Healthy manual is now on-line. Visit [email or web address] [email or web address] to download your free copy documented in this encounter [facility] 09-02-2024 Progress note Formatting of t [...] high risk in third trimester ([facility]) Orders: NON-STRESS TEST; Standing Other obesity affecting in third trimester ([facility]) Orders: NON-STRESS TEST; Standing 32 weeks gestation of ([facility]) Brandan Puga M.D. [facility] 09-02-2024 Miscellaneous Notes RR- VB No. LOF No. CTXS No. Movement: present. Other c/o: occas ruq pain, resolves on its own Medication list reviewed. SENSITIVE EXAM: Sensitive exam not performed. Physical Exam See Flow Sheet Abd: soft, nontender, gravid Ext: edema: 1+ A/P 32w0d Estimated Date of Delivery: 10/28/24 Assessment & Plan Supervision of high risk in third trimester ([facility]) Orders: NON-STRESS TEST; Standing Other obesity affecting in third trimester ([facility]) Orders: NON-STRESS TEST; Standing 32 weeks gestation of ([facility]) Brandan Puga M.D. documented in this encounter [facility] 09-02-2024 Note Indication Evaluation of growth, [...] movements 2: tone 2: Amniotic fluid volume 10/14 Biophysical profile score Growth Overview Exam date [...] 9 oz EFW by: Hadlock (HC-AC-FL) Extended Seasonal Greenery Bundler 7.4 mm Extremities / Bony Struc FL [...] Hurtado M.D. [facility] 09-02-2024 Instructions Leni Lzi MA - 09/02/2024 2:15 PM EDT SEQUENTIAL SCREENINGS [facility] offers sequential screenings for women who [...] It will require an appointment with our orthophotography technician. This is not an ultrasound performed [...] the above symptoms, contact our office at [phone] and ask to speak with a nurse. After hours, you can call doctors registry at [phone] OR call [facility] at [phone] and ask to have the doctor tax consultant paged. If you consider this an emergency, dial 9- or go to your nearest emergency department. NEED HELP? Are you dealing with a violent or abusive relationship? Are you a victim of rape or sexual assult? Call [facility] ([place]) 24 hour Crisis Hotline: 870.762.3073 or 673-783-8201. MANUAL Your Guide to a Healthy manual is now on-line. Visit [email or web address] [email or web address] to download your free copy documented in this encounter [facility] 08-26-2024 Progress note Formatting of t [...] NSTs starting next week Planning trip to [place] next week. Discussed travel precautions ASSESSMENT/PLAN: 1. 31 weeks gestation of ([facility]) - ICD9: V22.2, ICD10: Z3A.31 (primary diagnosis) 2. Supervision of high risk in third trimester ([facility]) - ICD9: V23.9, ICD10: O09.93 3. Other obesity affecting in third trimester ([facility]) - ICD9: 649.13, 278.00, ICD10: O99.213, E66.89 NSTs at 32 weeks Growth q 4 Liset Castañeda MD [facility] 08-26-2024 Miscellaneous Notes S: Valerio Nunez [...] NSTs starting next week Planning trip to [place] next week. Discussed travel precautions ASSESSMENT/PLAN: 1. 31 weeks gestation of ([facility]) - ICD9: V22.2, ICD10: Z3A.31 (primary diagnosis) 2. Supervision of high risk in third trimester ([facility]) - ICD9: V23.9, ICD10: O09.93 3. Other obesity affecting in third trimester ([facility]) - ICD9: 649.13, 278.00, ICD10: O99.213, E66.89 NSTs at 32 weeks Growth q 4 Liset Castañeda MD documented in this encounter [facility] 08-26-2024 Instructions Barbara Claire MA - 08/26/2024 9:32 AM EDT SEQUENTIAL SCREENINGS [facility] offers sequential screenings for women who [...] It will require an appointment with our orthophotography technician. This is not an ultrasound performed [...] the above symptoms, contact our office at [phone] and ask to speak with a nurse. After hours, you can call doctors registry at [phone] OR call [facility] at [phone] and ask to have the doctor tax consultant paged. If you consider this an emergency, dial or go to your nearest emergency department. NEED HELP? Are you dealing with a violent or abusive relationship? Are you a victim of rape or sexual assult? Call [facility] ([place]) 24 hour Crisis Hotline: 600.942.5634 or 098-793-8579. MANUAL Your Guide to a Healthy manual is now on-line. Visit [email or web address] [email or web address] to download your free copy documented in this encounter [facility] 08-12-2024 Progress note Formatting of t [...] or sooner if needed Kelsi Hall APRN.CNM [facility] 08-12-2024 Miscellaneous Notes S: Valerio Nunez [...] Kelsi Hall APRN.CNM documented in this encounter [facility] 08-12-2024 Note HNO ID: [id number] Author: JESUS MANUEL PABON MA Service: ? Author Type: Computer Programming Manager Type: Progress Notes Filed: 08/12/2024 12:35 Note [...] severely ill: Yes Patient denies history of Guillain-Sycamore Syndrome (a severe paralytic illness): Yes Tdap Adacel injection was given without incident. See immunizations for details of immunizations administered today. VIS sheet provided: Yes Provider Kelsi Hall APRN CNM was present in office at time of injection. Jesus Manuel Pabon MA [facility] 08-12-2024 History of Presen t illness Narrative Patient identified by name and date of . Vlaerio Nunez presents today for a vaccination of Tdap. Patient denies an allergy to latex: yes Patient denies a severe (life-threatening) allergy to a previous dose of Tdap, DTP, DTaP, DT or Td vaccine. Yes Patient denies history of epilepsy or neurological problems: Yes Patient is afebrile and denies being moderately or severely ill: Yes Patient denies history of Guillain-Sycamore Syndrome (a severe paralytic illness): Yes Tdap Adacel injection was given without incident. See immunizations for details of immunizations administered today. VIS sheet provided: Yes Provider Kelsi Hall APRN CNM was present in office at time of injection. Jesus Manuel Pabon MA documented in this encounter [facility] 08-12-2024 Instructions Jesus Manuel Pabon MA - 08/12/2024 9:45 AM EDT SEQUENTIAL SCREENINGS [facility] offers sequential screenings for women who [...] It will require an appointment with our orthophotography technician. This is not an ultrasound performed [...] the above symptoms, contact our office at [phone] and ask to speak with a nurse. After hours, you can call doctors registry at [phone] OR call [facility] at [phone] and ask to have the doctor tax consultant paged. If you consider this an emergency, dial 9-1-7 or go to your nearest emergency department. NEED HELP? Are you dealing with a violent or abusive relationship? Are you a victim of rape or sexual assult? Call [facility] ([place]) 24 hour Crisis Hotline: 318.297.7810 or 026-079-7995. MANUAL Your Guide to a Healthy manual is now on-line. Visit [email or web address] [email or web address] to download your free copy documented in this encounter [facility] 08-10-2024 Telephone encounter Note New forms completed and faxed back to employer. Patient notified. Jesus Manuel Pabon MA [facility] 08-10-2024 Miscellaneous Notes New forms completed and faxed back to employer. Patient notified. Jesus Manuel Pabon MA New forms filled out. On providers desk for signature. Jesus Manuel Pabon MA Papers printed and placed in FMLA inbox. Drea Eckert RN documented in this encounter [facility] 08-09-2024 Telephone encounter Note New forms filled out. On providers desk for signature. Jesus Manuel Pabon MA [facility] 08-04-2024 Telephone encounter Note Papers printed and placed in FMLA inbox. Drea Eckert RN [facility] 07-21-2024 Telephone encounter Note FMLA paperwork has been completed and faxed back to employer. Keeping original copy for patient to parts picker at her next appointment. Patient notified. Jesus Manuel Pabon MA [facility] 07-21-2024 Miscellaneous Notes FMLA paperwork has been completed and faxed back to employer. Keeping original copy for patient to parts picker at her next appointment. Patient notified. Jesus Manuel Pabon MA Papers printed off and placed in prior authorization inbox to be completed. Drea Eckert RN documented in this encounter [facility] 07-20-2024 Telephone encounter Note Papers printed off and placed in prior authorization inbox to be completed. Drea Eckert RN [facility] 07-18-2024 Progress note Formatting of t his note might be different from the original. S: Valerio Nunez is a 28 year old female who presents at 25 weeks gestation for a routine visit. Positive movements. Increased hip pain. Recommended care trainer. Denies headache, visual changes, chest pain, shortness [...] or sooner if needed Kelsi Hall APRN.CNM [facility] 07-18-2024 Miscellaneous Notes S: Valerio Nunez is a 28 year old female who presents at 25 weeks gestation for a routine visit. Positive movements. Increased hip pain. Recommended care trainer. Denies headache, visual changes, chest pain, shortness [...] Kelsi Hall APRN.CNM documented in this encounter [facility] 07-18-2024 Instructions Jamel Espitia MA - 07/18/2024 3:03 PM EDT SEQUENTIAL SCREENINGS [facility] offers sequential screenings for women who [...] It will require an appointment with our orthophotography technician. This is not an ultrasound performed [...] the above symptoms, contact our office at [phone] and ask to speak with a nurse. After hours, you can call doctors registry at [phone] OR call [facility] at [phone] and ask to have the doctor tax consultant paged. If you consider this an emergency, dial 9-1-1 or go to your nearest emergency department. NEED HELP? Are you dealing with a violent or abusive relationship? Are you a victim of rape or sexual assult? Call [facility] ([place]) 24 hour Crisis Hotline: 899.403.4492 or 992-577-7018. MANUAL Your Guide to a Healthy manual is now on-line. Visit [email or web address] [email or web address] to download your free copy documented in this encounter [facility] 06-18-2024 Progress note Formatting of t [...] affecting in second trimester, unspecified obesity type ([facility]) - ICD9: 649.13, ICD10: O99.212 Growth q 4 weeks NSTs at 36 weeks 4. History of vacuum extraction assisted delivery - ICD9: V13.29, ICD10: Z87.59 Liset Castañeda MD [facility] 06-18-2024 Miscellaneous Notes S: Valerio Nunez [...] Liset Castañeda MD documented in this encounter [facility] 06-17-2024 Instructions Leni Liz MA - 06/17/2024 3:00 PM EDT SEQUENTIAL SCREENINGS [facility] offers sequential screenings for women who [...] It will require an appointment with our orthophotography technician. This is not an ultrasound performed [...] the above symptoms, contact our office at [phone] and ask to speak with a nurse. After hours, you can call doctors registry at [phone] OR call [facility] at [phone] and ask to have the doctor tax consultant paged. If you consider this an emergency, dial 11-07- or go to your nearest emergency department. NEED HELP? Are you dealing with a violent or abusive relationship? Are you a victim of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 of high risk in second trimester- Primary Unspecified high-risk Obesity affecting in second trimester, unspecified obesity type 16 weeks gestation of state, incidental [facility]* Diagnosis 21 weeks gestation of (HCC)- Primary state, incidental Supervision of high risk in second trimester (HCC) Unspecified high-risk Obesity affecting in second trimester, unspecified obesity type (HCC) History of vacuum extraction assisted delivery Other postprocedural status [facility]* Diagnosis Encounter for anatomic survey ([facility])- Primary Encounter for anatomic survey Obesity affecting in second trimester, unspecified obesity type (HCC) 21 weeks gestation of (HCC) state, incidental [facility] Diagnosis Supervision of high risk in second trimester (HCC)- Primary Unspecified high-risk 25 weeks gestation of ([facility]) state, incidental Screening for diabetes mellitus Supervision of other normal , antepartum ([facility]) Obesity affecting in second trimester, unspecified obesity type ([facility]) [facility]* Diagnosis Supervision of high risk in third trimester (HCC)- Primary Unspecified high-risk 29 weeks gestation of ([facility]) state, incidental Other obesity affecting in third trimester ([facility]) History of vacuum extraction assisted delivery Other postprocedural status History of pulmonary embolism Personal history of pulmonary embolism Need for vaccination Need for prophylactic vaccination and inoculation against unspecified single disease [facility] Diagnosis Elevated glucose- Primary Other abnormal glucose [facility] Diagnosis 31 weeks gestation of (HCC)- Primary state, incidental Supervision of high risk in third trimester (HCC) Unspecified high-risk Other obesity affecting in third trimester (HCC) [facility]* Diagnosis Supervision of high risk in third trimester (HCC)- Primary Unspecified high-risk Other obesity affecting in third trimester (HCC) 32 weeks gestation of ([facility]) state, incidental [facility]* Diagnosis Encounter for ultrasound to check growth ([facility])- Primary Encounter for routine screening for malformation using ultrasonics Other obesity affecting in third trimester (HCC) 32 weeks gestation of ([facility]) state, incidental Polyhydramnios in third trimester complication, single or unspecified fetus ([facility]) [facility] Diagnosis Polyhydramnios in third trimester complication, single or unspecified fetus (HCC)- Primary Other obesity affecting in third trimester (HCC) 34 weeks gestation of (HCC) state, incidental * Assessment & Plan Note - Yumiko Carver MD - 09/16/2024 2:10 PM EDTAssociated Problem(s): Polyhydramnios (HCC) Repeat US in 2 weeks Orders: URINE OB DIP B/O documented in this encounter [facility] note* Diagnosis Polyhydramnios in third trimester complication, [...] (HCC) state, incidental [facility] Diagnosis Polyhydramnios in third trimester complication, single or unspecified fetus (HCC)- Primary Other obesity affecting in third trimester (HCC) 34 weeks gestation of (HCC) state, incidental Obesity affecting in first trimester, unspecified obesity type (HCC)- Primary Other obesity affecting in third trimester (HCC) [facility]* Diagnosis Polyhydramnios in third trimester complication, [...] third trimester (HCC) documented in this encounter [facility] note* Diagnosis Polyhydramnios in third trimester complication, [...] counts. NST done. [facility] Diagnosis Elevated glucose- Primary Other [...] unspecified fetus (HCC) [facility] Diagnosis Polyhydramnios in third trimester complication, [...] (HCC) state, incidental [facility] Diagnostic Procedure Only (Routine) - New Request Specialty Diagnoses / Procedures Referred By Seng chris Referred To Contact [facility] Diagnoses Encounter for supervision of high risk in first trimester, antepartum 9 weeks gestation of Procedures NUCHAL TRANSLUCENCY WHI US NUCHAL TRANSLUCENCY 1ST GESTATION Max Agustin APRN.CNP [address] [place] [address] [address] Referral ID Status Reason Start Date Expiration Date Visits Requested Visits Authorized [id number] New Request Auto-Generat ed Referral 03/18/2024 03/18/2025 1 1 * Diagnostic Procedure Only (Routine) - New Request Specialty Diagnoses / Procedures Referred By Seng chris Referred To Contact [facility] Diagnoses with uncertain dates in first trimester Procedures OBSTETRIC ULTRASOUND WHI US PREG UTERUS AFTER 1ST TRIMEST 1/1ST GESTATION Max Agustin APRN.AIRCRAFT DESIGNER [address] [place] [address] [facility] [address] [place] [address] Referral ID Status Reason Start Date Expiration Date Visits Requested Visits Authorized [id number] New Request Auto-Generat ed Referral 03/18/2024 03/18/2025 [facility] Summary Purpose Family History No Family History Records FoundNo Family History Records FoundNo Family History Records FoundNo Family History Records FoundNo Family History Records Found Advance Directives No Advanced Directives Records FoundNo Advanced Directives Records FoundNo Advanced Directives Records FoundNo Advanced Directives Records FoundNo Advanced Directives Records Found Additional Source Comments INFORMATION SOURCE (unrecogn ized section and content) DATE CREATED AUTHOR 08/26/[address] [facility] DATE CREATED AUTHOR AUTHOR'S ORGANIZ ATION 10/30/2017 [facility] DATE CREATED AUTHOR AUTHOR'S ORGANIZ ATION 12/19/2017 [facility] DATE CREATED AUTHOR AUTHOR'S ORGANIZ ATION 04/24/2021 [facility] DATE CREATED AUTHOR AUTHOR'S ORGANIZ ATION 10/21/2024 [facility] Source Comments (unrecognize d section and content) In the event this informatio n is protected by the Federal Confidentiality of Alcohol and Drug Abuse Patient Records regulations: The Federal rules restrict any use of the information to criminally investigate or prosecute any alcohol or drug abuse patient.[facility] HospitalIn the event this information is protected by the Federal Confidentiality of Alcohol and Drug Abuse Patient Records regulations: The Federal rules restrict any use of the information to criminally investigate or prosecute any alcohol or drug abuse patient.[facility] HospitalIn the event this information is protected by the Federal Confidentiality of Alcohol and Drug Abuse Patient Records regulations: The Federal rules restrict any use of the information to criminally investigate or prosecute any alcohol or drug abuse patient.[facility] HospitalIn the event this information is protected by the Federal Confidentiality of Alcohol and Drug Abuse Patient Records regulations: The Federal rules restrict any use of the information to criminally investigate or prosecute any alcohol or drug abuse patient.[facility] HospitalIn the event this information is protected by the Federal Confidentiality of Alcohol and Drug Abuse Patient Records regulations: The Federal rules restrict any use of the information to criminally investigate or prosecute any alcohol or drug abuse patient.[facility] HospitalIn the event this information is protected by the Federal Confidentiality of Alcohol and Drug Abuse Patient Records regulations: The Federal rules restrict any use of the information to criminally investigate or prosecute any alcohol or drug abuse patient.[facility] HospitalIn the event this information is protected by the Federal Confidentiality of Alcohol and Drug Abuse Patient Records regulations: The Federal rules restrict any use of the information to criminally investigate or prosecute any alcohol or drug abuse patient.[facility] HospitalIn the event this information is protected by the Federal Confidentiality of Alcohol and Drug Abuse Patient Records regulations: The Federal rules restrict any use of the information to criminally investigate or prosecute any alcohol or drug abuse patient.[facility] HospitalIn the event this information is protected by the Federal Confidentiality of Alcohol and Drug Abuse Patient Records regulations: The Federal rules restrict any use of the information to criminally investigate or prosecute any alcohol or drug abuse patient.[facility] HospitalIn the event this information is protected by the Federal Confidentiality of Alcohol and Drug Abuse Patient Records regulations: The Federal rules restrict any use of the information to criminally investigate or prosecute any alcohol or drug abuse patient.[facility] HospitalIn the event this information is protected by the Federal Confidentiality of Alcohol and Drug Abuse Patient Records regulations: The Federal rules restrict any use of the information to criminally investigate or prosecute any alcohol or drug abuse patient.[facility] HospitalIn the event this information is protected by the Federal Confidentiality of Alcohol and Drug Abuse Patient Records regulations: The Federal rules restrict any use of the information to criminally investigate or prosecute any alcohol or drug abuse patient.[facility] HospitalIn the event this information is protected by the Federal Confidentiality of Alcohol and Drug Abuse Patient Records regulations: The Federal rules restrict any use of the information to criminally investigate or prosecute any alcohol or drug abuse patient.[facility] HospitalIn the event this information is protected by the Federal Confidentiality of Alcohol and Drug Abuse Patient Records regulations: The Federal rules restrict any use of the information to criminally investigate or prosecute any alcohol or drug abuse patient.[facility] HospitalIn the event this information is protected by the Federal Confidentiality of Alcohol and Drug Abuse Patient Records regulations: The Federal rules restrict any use of the information to criminally investigate or prosecute any alcohol or drug abuse patient.[facility] HospitalIn the event this information is protected by the Federal Confidentiality of Alcohol and Drug Abuse Patient Records regulations: The Federal rules restrict any use of the information to criminally investigate or prosecute any alcohol or drug abuse patient.[facility] HospitalIn the event this information is protected by the Federal Confidentiality of Alcohol and Drug Abuse Patient Records regulations: The Federal rules restrict any use of the information to criminally investigate or prosecute any alcohol or drug abuse patient.[facility] HospitalIn the event this information is protected by the Federal Confidentiality of Alcohol and Drug Abuse Patient Records regulations: The Federal rules restrict any use of the information to criminally investigate or prosecute any alcohol or drug abuse patient.[facility] HospitalIn the event this information is protected by the Federal Confidentiality of Alcohol and Drug Abuse Patient Records regulations: The Federal rules restrict any use of the information to criminally investigate or prosecute any alcohol or drug abuse patient.[facility] HospitalIn the event this information is protected by the Federal Confidentiality of Alcohol and Drug Abuse Patient Records regulations: The Federal rules restrict any use of the information to criminally investigate or prosecute any alcohol or drug abuse patient.[facility] HospitalIn the event this information is protected by the Federal Confidentiality of Alcohol and Drug Abuse Patient Records regulations: The Federal rules restrict any use of the information to criminally investigate or prosecute any alcohol or drug abuse patient.[facility] HospitalIn the event this information is protected by the Federal Confidentiality of Alcohol and Drug Abuse Patient Records regulations: The Federal rules restrict any use of the information to criminally investigate or prosecute any alcohol or drug abuse patient.[facility] HospitalIn the event this information is protected by the Federal Confidentiality of Alcohol and Drug Abuse Patient Records regulations: The Federal rules restrict any use of the information to criminally investigate or prosecute any alcohol or drug abuse patient.[facility] HospitalIn the event this information is protected by the Federal Confidentiality of Alcohol and Drug Abuse Patient Records regulations: The Federal rules restrict any use of the information to criminally investigate or prosecute any alcohol or drug abuse patient.[facility] HospitalIn the event this information is protected by the Federal Confidentiality of Alcohol and Drug Abuse Patient Records regulations: The Federal rules restrict any use of the information to criminally investigate or prosecute any alcohol or drug abuse patient.[facility] HospitalIn the event this information is protected by the Federal Confidentiality of Alcohol and Drug Abuse Patient Records regulations: The Federal rules restrict any use of the information to criminally investigate or prosecute any alcohol or drug abuse patient.City HospitalIn the event this information is protected by the Federal Confidentiality of Alcohol and Drug Abuse Patient Records regulations: The Federal rules restrict any use of the information to criminally investigate or prosecute any alcohol or drug abuse patient.[facility] HospitalIn the event this information is protected by the Federal Confidentiality of Alcohol and Drug Abuse Patient Records regulations: The Federal rules restrict any use of the information to criminally investigate or prosecute any alcohol or drug abuse patient.[facility] HospitalIn the event this information is protected by the Federal Confidentiality of Alcohol and Drug Abuse Patient Records regulations: The Federal rules restrict any use of the information to criminally investigate or prosecute any alcohol or drug abuse patient.[facility] HospitalIn the event this information is protected by the Federal Confidentiality of Alcohol and Drug Abuse Patient Records regulations: The Federal rules restrict any use of the information to criminally investigate or prosecute any alcohol or drug abuse patient.[facility] HospitalIn the event this information is protected by the Federal Confidentiality of Alcohol and Drug Abuse Patient Records regulations: The Federal rules restrict any use of the information to criminally investigate or prosecute any alcohol or drug abuse patient.[facility] HospitalIn the event this information is protected by the Federal Confidentiality of Alcohol and Drug Abuse Patient Records regulations: The Federal rules restrict any use of the information to criminally investigate or prosecute any alcohol or drug abuse patient.[facility] HospitalIn the event this information is protected by the Federal Confidentiality of Alcohol and Drug Abuse Patient Records regulations: The Federal rules restrict any use of the information to criminally investigate or prosecute any alcohol or drug abuse patient.[facility] HospitalIn the event this information is protected by the Federal Confidentiality of Alcohol and Drug Abuse Patient Records regulations: The Federal rules restrict any use of the information to criminally investigate or prosecute any alcohol or drug abuse patient.[facility] HospitalIn the event this information is protected by the Federal Confidentiality of Alcohol and Drug Abuse Patient Records regulations: The Federal rules restrict any use of the information to criminally investigate or prosecute any alcohol or drug abuse patient.[facility] HospitalIn the event this information is protected by the Federal Confidentiality of Alcohol and Drug Abuse Patient Records regulations: The Federal rules restrict any use of the information to criminally investigate or prosecute any alcohol or drug abuse patient.[facility] HospitalIn the event this information is protected by the Federal Confidentiality of Alcohol and Drug Abuse Patient Records regulations: The Federal rules restrict any use of the information to criminally investigate or prosecute any alcohol or drug abuse patient.[facility] HospitalIn the event this information is protected by the Federal Confidentiality of Alcohol and Drug Abuse Patient Records regulations: The Federal rules restrict any use of the information to criminally investigate or prosecute any alcohol or drug abuse patient.[facility] HospitalIn the event this information is protected by the Federal Confidentiality of Alcohol and Drug Abuse Patient Records regulations: The Federal rules restrict any use of the information to criminally investigate or prosecute any alcohol or drug abuse patient.[facility] HospitalIn the event this information is protected by the Federal Confidentiality of Alcohol and Drug Abuse Patient Records regulations: The Federal rules restrict any use of the information to criminally investigate or prosecute any alcohol or drug abuse patient.[facility] HospitalIn the event this information is protected by the Federal Confidentiality of Alcohol and Drug Abuse Patient Records regulations: The Federal rules restrict any use of the information to criminally investigate or prosecute any alcohol or drug abuse patient.City HospitalIn the event this information is protected by the Federal Confidentiality of Alcohol and Drug Abuse Patient Records regulations: The Federal rules restrict any use of the information to criminally investigate or prosecute any alcohol or drug abuse patient.[facility] HospitalIn the event this information is protected by the Federal Confidentiality of Alcohol and Drug Abuse Patient Records regulations: The Federal rules restrict any use of the information to criminally investigate or prosecute any alcohol or drug abuse patient.City HospitalIn the event this information is protected by the Federal Confidentiality of Alcohol and Drug Abuse Patient Records regulations: The Federal rules restrict any use of the information to criminally investigate or prosecute any alcohol or drug abuse patient.City HospitalIn the event this information is protected by the Federal Confidentiality of Alcohol and Drug Abuse Patient Records regulations: The Federal rules restrict any use of the information to criminally investigate or prosecute any alcohol or drug abuse patient.City HospitalIn the event this information is protected by the Federal Confidentiality of Alcohol and Drug Abuse Patient Records regulations: The Federal rules restrict any use of the information to criminally investigate or prosecute any alcohol or drug abuse patient.City HospitalIn the event this information is protected by the Federal Confidentiality of Alcohol and Drug Abuse Patient Records regulations: The Federal rules restrict any use of the information to criminally investigate or prosecute any alcohol or drug abuse patient.[facility] Reason for Visit (unrecogniz ed section [...] Referred By Contac t Referred To Contact [facility] Diagnoses with uncertain dates in first trimester (HCC) Procedures OBSTETRIC ULTRASOUND WHI US PREG UTERUS AFTER 1ST TRIMEST GESTATION Max Agustin, TIRE SERVICE SUPERVISOR.AIRCRAFT DESIGNER [address] [place] [address] Phone: tel: fax: [address] [address] Referral ID Status Reason Start Date Expiration Date V isits Requested Visits Authorized [id number] Closed Auto-Generate d Referral 03/18/2024 03/18/2025 1 1 Reason Onset Date Comments Care 07/18/2024 Reason Onset Date Comments Care 08/12/2024 Reason Onset Date Comments Care 08/26/2024 Reason Onset Date Comments Care 09/02/2024 Specialty Diagnoses / Procedures Referred By Contac t Referred To Contact [facility] Diagnoses Other obesity affecting in third trimester (HCC) History of vacuum extraction assisted delivery Procedures OBSTETRIC ULTRASOUND WHI US PREG UTERUS AFTER 1ST TRIMEST GESTATION Kelsi Hall, TIRE SERVICE SUPERVISOR.CNM [address] [place] [address] Phone: tel: fax:[phone] [address] [address] [place] [address] Referral ID Status Reason Start Date Expiration Date V isits Requested Visits Authorized [id number] Closed Auto-Generate d Referral 08/12/2024 08/12/2025 5 1 Reason Onset Date Comments Care 09/16/2024 Reason Onset Date Comments Care 09/23/2024 Reason Onset Date Comments Care 09/30/2024 Reason Onset Date Comments Care 10/07/2024 Reason Onset Date Comments Care 10/19/2024 Care Teams (unrecognized sec tion and content) Affiliate Manager Relationship Specialty Start Date End Date Frank Marinelli, DO [address] [place] [address] PCP - General Family Practice 12/22/17 Affiliate Manager Relationship Specialty Start Date End Date Frank Marinelli, DO [address] [place] [address] PCP - General Family Practice 12/22/17 Affiliate Manager Relationship Specialty Start Date End Date Frank Marinelli, DO [address] [place] [address] PCP - General Family Practice 12/22/17 Affiliate Manager Relationship Specialty Start Date End Date Frank Marinelli, DO [address] [place] [address] PCP - General Family Practice 12/22/17 Affiliate Manager Relationship Specialty Start Date End Date Frank Marinelli, DO [address] [place] [address] PCP - General Family Practice 12/22/17 Affiliate Manager Relationship Specialty Start Date End Date Frank Marinelli, DO [address] [place] [address] PCP - General Family Practice 12/22/17 Affiliate Manager Relationship Specialty Start Date End Date Frank Marinelli, DO [address] [place] [address] PCP - General Family Medicine 12/22/17 Affiliate Manager Relationship Specialty Start Date End Date Frank Marinelli, DO [address] [place] [address] PCP - General Family Medicine 12/22/17 Affiliate Manager Relationship Specialty Start Date End Date Frank Marinelli, DO [address] [facility] [place] [address] PCP - General Family Medicine 12/22/17 Affiliate Manager Relationship Specialty Start Date End Date Frank Marinelli, DO [address] [facility] [place] [address] PCP - General Family Medicine 12/22/17 Affiliate Manager Relationship Specialty Start Date End Date Frank Marinelli, DO [address] [facility] [place] [address] PCP - General Family Medicine 12/22/17 Affiliate Manager Relationship Specialty Start Date End Date Frank Marinelli DO [address] [facility] [place] [address] PCP - General Family Medicine 12/22/17 Affiliate Manager Relationship Specialty Start Date End Date Frank Marinelli DO [address] [facility] [place] [address] PCP - General Family Medicine 12/22/17 Affiliate Manager Relationship Specialty Start Date End Date Frank Marinelli DO [address] [facility] [place] [address] PCP - General Family Medicine 12/22/17 Affiliate Manager Relationship Specialty Start Date End Date Frank Marinelli DO [address] [facility] [place] [address] PCP - General Family Medicine 12/22/17 Affiliate Manager Relationship Specialty Start Date End Date Frank Marinelli DO [address] [facility] [place] [address] PCP - General Family Medicine 12/22/17 Affiliate Manager Relationship Specialty Start Date End Date Frank Marinelli DO [address] [place] [address] PCP - General Family Medicine 12/22/17 Affiliate Manager Relationship Specialty Start Date End Date Frank Marinelli DO [address] [place] [address] PCP - General Family Medicine 12/22/17 Fabi Farah, TIRE SERVICE SUPERVISOR.AIRCRAFT DESIGNER [address] [facility] [place] [address] [facility] 02/14/24 JoleneRosana, TIRE SERVICE SUPERVISOR.AIRCRAFT DESIGNER [address] [facility] [place] [address] [facility] 02/14/24 Affiliate Manager Relationship Specialty Start Date End Date Frank Marinelli DO [address] [place] [address] PCP - General Family Medicine 12/22/17 Fabi Farah, TIRE SERVICE SUPERVISOR.AIRCRAFT DESIGNER [address] [place] [address] [facility] 02/14/24 JoleneRosana, TIRE SERVICE SUPERVISOR.AIRCRAFT DESIGNER [address] [facility] [place] [address] [facility] 02/14/24 Affiliate Manager Relationship Specialty Start Date End Date Frank Marinelli DO [address] [facility] [place] [address] PCP - General Family Medicine 12/22/17 Fabi Farah, TIRE SERVICE SUPERVISOR.AIRCRAFT DESIGNER [address] [place] [address] Survey Worker Family Medicine 02/14/24 05/27/24 Rosana Leslie, TIRE SERVICE SUPERVISOR.AIRCRAFT DESIGNER [address] [place] [address] Survey Worker Family Medicine 02/14/24 Affiliate Manager Relationship Specialty Start Date End Date Frank Marinelli DO [address] [place] [address] PCP - General Family Medicine 12/22/17 Rosana Leslie, TIRE SERVICE SUPERVISOR.AIRCRAFT DESIGNER [address] [place] [address] [facility] 02/14/24 Affiliate Manager Relationship Specialty Start Date End Date Frank Marinelli DO [address] [place] [address] PCP - General Family Medicine 12/22/17 Rosana Leslie, TIRE SERVICE SUPERVISOR.AIRCRAFT DESIGNER [address] [place] [address] [facility] 02/14/24 Affiliate Manager Relationship Specialty Start Date End Date Frank Marinelli DO [address] [place] [address] PCP - General Family Medicine 12/22/17 Rosana Leslie, TIRE SERVICE SUPERVISOR.AIRCRAFT DESIGNER [address] [place] [address] Survey Worker Family [facility] 02/14/24 Affiliate Manager Relationship Specialty Start Date End Date Frank Marinelli DO [address] [facility] [place] [address] PCP - General Family Medicine 12/22/17 JoleneRosana, TIRE SERVICE SUPERVISOR.AIRCRAFT DESIGNER [address] [facility] [place] [address] Survey Worker Family [facility] 02/14/24 Affiliate Manager Relationship Specialty Start Date End Date Frank Marinelli DO [address] [facility] [place] [address] PCP - General Family Medicine 12/22/17 [facility] RahwayRosana, TIRE SERVICE SUPERVISOR.AIRCRAFT DESIGNER [address] [facility] [place] [address] Survey Worker Family [facility] 02/14/24 Affiliate Manager Relationship Specialty Start Date End Date Frank Marinelli DO [address] [facility] [place] [address] PCP - General Family Medicine 12/22/17 JoleneRosana, TIRE SERVICE SUPERVISOR.AIRCRAFT DESIGNER [address] [facility] [place] [address] Survey Worker Family [facility] 02/14/24 Affiliate Manager Relationship Specialty Start Date End Date Frank Marinelli DO [address] [facility] [place] [address] PCP - General Family Medicine 12/22/17 JoleneRosana, TIRE SERVICE SUPERVISOR.AIRCRAFT DESIGNER [address] [facility] [place] [address] Survey Worker Family [facility] 02/14/24 Affiliate Manager Relationship Specialty Start Date End Date Frank Marinelli DO [address] [place] [address] PCP - General Family Medicine 12/22/17 Rosana Leslie, TRINITY.AIRCRAFT DESIGNER [address] [place] [address] Survey Worker Family Medicine 02/14/24 Leny Alberto, TIRE SERVICE SUPERVISOR.AIRCRAFT DESIGNER [address] [place] [address] Survey Worker Family Medicine 08/22/24 Affiliate Manager Relationship Specialty Start Date End Date Frank Marinelli DO [address] [place] [address] PCP - General Family Medicine 12/22/17 Rosana Leslie, TIRE SERVICE SUPERVISOR.AIRCRAFT DESIGNER [address] [place] [address] Survey Worker Family Medicine 02/14/24 Leny Alberto, TIRE SERVICE SUPERVISOR.AIRCRAFT DESIGNER [address] [place] [address] Survey Worker Family [facility] 08/22/24 Affiliate Manager Relationship Specialty Start Date End Date Frank Marinelli DO [address] [place] [address] PCP - General Family Medicine 12/22/17 Rosana Leslie, TIRE SERVICE SUPERVISOR.AIRCRAFT DESIGNER [address] [place] [address] Survey Worker Family Medicine 02/14/24 Leny Alberto, TIRE SERVICE SUPERVISOR.AIRCRAFT DESIGNER [address] [place] [address] Survey Worker Family Medicine 08/22/24 Affiliate Manager Relationship Specialty Start Date End Date Frank Marinelli DO [address] [facility] [place] [address] PCP - General Family Medicine 12/22/17 Rosana Leslie, TIRE SERVICE SUPERVISOR.AIRCRAFT DESIGNER [address] [place] [address] Survey Worker Family Medicine 02/14/24 Leny Alberto, TIRE SERVICE SUPERVISOR.AIRCRAFT DESIGNER [address] [place] [address] [facility] 08/22/24 Affiliate Manager Relationship Specialty Start Date End Date Frank Marinelli DO [address] [place] [address] PCP - General Family Medicine 12/22/17 JoleneRosana, TIRE SERVICE SUPERVISOR.AIRCRAFT DESIGNER [address] [place] [address] [facility] 02/14/24 Leny Alberto, TIRE SERVICE SUPERVISOR.AIRCRAFT DESIGNER [address] [place] [address] [facility] 08/22/24 Affiliate Manager Relationship Specialty Start Date End Date Frank Marinelli DO [address] [place] [address] PCP - General Family Medicine 12/22/17 Rosana Leslie, TIRE SERVICE SUPERVISOR.AIRCRAFT DESIGNER [address] [facility] [place] [address] [facility] 02/14/24 Leny Alberto, TIRE SERVICE SUPERVISOR.AIRCRAFT DESIGNER [address] [place] [address] [facility] 08/22/24 Affiliate Manager Relationship Specialty Start Date End Date Frank Marinelli DO [address] [facility] [place] [address] PCP - General Family Medicine 12/22/17 [facility] TIRE SERVICE SUPERVISOR.AIRCRAFT DESIGNER [address] [place] [address] [facility] 02/14/24 Leny Alberto, TIRE SERVICE SUPERVISOR.AIRCRAFT DESIGNER [address] [place] [address] [facility] 08/22/24 Affiliate Manager Relationship Specialty Start Date End Date Frank Marinelli DO [address] [place] [address] PCP - General Family Medicine 12/22/17 [facility], TIRE SERVICE SUPERVISOR.AIRCRAFT DESIGNER [address] [place] [address] [facility] 02/14/24 Leny Alberto, TIRE SERVICE SUPERVISOR.AIRCRAFT DESIGNER [address] [facility] [place] [address] [facility] 08/22/24 Affiliate Manager Relationship Specialty Start Date End Date Frakn Marinelli DO [address] [facility] [place] [address] PCP - General Family Medicine 12/22/17 Rosana Leslie, TIRE SERVICE SUPERVISOR.AIRCRAFT DESIGNER [address] [place], [place] [address] [facility] 02/14/24 Leny Alberto APRN.AIRCRAFT DESIGNER [address] [place], [place] [id number] [facility] 08/22/24 Affiliate Manager Relationship Specialty Start Date End Date Frank Marinelli DO [address] [place], [place] [address] PCP - General Family Medicine 12/22/17 Rosana Leslie, TRINITY.AIRCRAFT DESIGNER [address] [place], [place] [address] [facility] 02/14/24 Leny Alberto, TIRE SERVICE SUPERVISOR.AIRCRAFT DESIGNER [address] [place] [address] [phone] [facility] 08/22/24 FOR RECORDS PERTAINING TO PATIENTS WHO [...] BE BASED ON THE PRIMARY CLINICAL RECORDS. [email or web address] provides no warranty or guarantee of the accuracy or completeness of information in this document.
[2024-10-21] MEDS: LACTATED RINGERS 500 ML 999 ML IV (21:55)
--- NOTE | 2024-10-21 22:34 | OB.VAGDELI_ITS ---
Assessment & Plan (1) (spontaneous vaginal delivery): Maternal Data Information Final DONNELL: 10[birth year]24 Gestational age: 39 Vaginal Delivery Maternal Presentation Maternal Presentation: Elective Induction Type of Induction: Pitocin and Ulloa Bulb Vaginal Delivery Information Procedure Performed: Spontaneous Vaginal Delivery Surgeon/Practitioner: Liset Castañeda Date of Procedure: 10/21/24 Pre-Procedure Diagnosis: Suspected LGA Post-Procedure Diagnosis: Type of anesthesia: Epidural Estimated Blood Loss: 100 cc Time of Delivery: :19 Findings Description of procedure: Elective IOL with Ulloa and pitocin. Arom at 4 cm. Progressed to complete and pushed three times. The next contraction the infant delivered without maternal effort in the GAGAN position. The anterior and posterior shoulders delivered spontaneously. The infant cried upon delivery and was placed on the maternal abdomen. The cord was clamped and cut at one minute. The placenta delivered with gentle traction. There were no lacerations. All sponge and instrument counts were correct. Presentation: Vertex and GAGAN Amniotic Membrane Rupture Type: Artificial Amniotic Fluid Description: Thick meconium Placental Delivery Description: Spontaneous Placenta Disposition: [facility] Specimen collected: No Cord Vessel Description: 3 Vessels Cord Entanglement: None Infant A Gender: Male (1 minute): 8 (5 minute): 9 Delayed Cord Clamping: Yes Diabetes Territory Manager pie cutter: No Post Vaginal Deli Medications given after delivery: IV Pitocin Episiotomy Description: None Laceration: None Complication Complications: No
[2024-10-21] MEDS: Oxytocin 15 Units/NS 250ml 15 UNITS/250 ML IV.SOLN 83 UNITS IV (23:06)
[2024-10-22] VITALS (14 sets, daily range): BP systolic 115–134; BP diastolic 60–87; PULSE 71–101; RESP 16–17; TEMP 36.4–36.8; O2SAT 95–98
--- NOTE | 2024-10-22 06:16 | NURSING ---
This RN assisted pt up to bathroom to try and void. Pt unable to void at this time. This RN assisted pt up to shower to try and relax to void at this time before straight cathing.
--- NOTE | 2024-10-22 08:55 | PCM.PN.OB ---
Subjective Subjective Doing well. Ambulating without difficulty. Has not been able to spontaneously void after delivery. Mild lochia. Breast feeding. Objective Data Objective Data Vital Signs: Vital Signs Temp Pulse Resp BP Pulse Ox O2 Del Method 98.3 F 76 16 122/86 H 95 Room Air 10/22/24 08:00 10/22/24 08:00 10/22/24 08:00 10/22/24 08:00 10/22/24 08:00 10/22/24 08:00 Oxygen Delivery Method Room Air Weight: 113.511 kg Body Mass Index (BMI) 42.9 Intake & Output: Intake and Output for Last 24 Hours 10/20/24 10/21/24 10/22/24 23:59 23:59 23:59 Intake Total 3404.55 / 3404.55 250 / 250 Output Total 500 / 500 1500 / 1500 Balance 2904.55 / 2904.55 -1250 / -1250 Lab / Micro Data 10/21/24 08:00 Labs: Laboratory Results - last 24 hr 10/21/24 08:00: Syphilis Total Ab Nonreactive, Blood Type B POSITIVE, Antibody Screen NEGATIVE ROS Constitutional Constitutional: Denies headache(s) Cardiovascular Cardiovascular: Denies chest pain or dyspnea Gastrointestinal Gastrointestinal: Denies nausea or vomiting Genitourinary Genitourinary: Denies dysuria Physical Exam Const alert, oriented x3 and no apparent distress General Appearance: cooperative and comfortable Eyes PERRL and EOMs intact bilaterally Resp normal respiratory effort GI soft to palpation and non-tender Uterus Palpation: uterus fundus firm ( below umbilicus) Extremity normal to inspection and full ROM Neuro oriented x3 and CN's II-XII intact bilaterally Psych mental status grossly normal Assessment & Plan (1) (spontaneous vaginal delivery): PLAN: Plan Routine pp care. Staight prn. May need amador
[2024-10-23 02:40] VITALS: BP 114/76; PULSE 69; RESP 16; TEMP 36.2; O2SAT 97
--- NOTE | 2024-10-23 08:30 | PCM.PN.OB ---
Subjective Subjective Doing well. Ambulating and voiding without difficulty. Mild lochia. Breast and bottle feeding. Objective Data Objective Data Vital Signs: Vital Signs Temp Pulse Resp BP Pulse Ox O2 Del Method 97.2 F L 69 16 114/76 97 Room Air 10/23/24 02:40 10/23/24 02:40 10/23/24 02:40 10/23/24 02:40 10/23/24 02:40 10/23/24 02:40 Oxygen Delivery Method Room Air Weight: 113.511 kg Body Mass Index (BMI) 42.9 Intake & Output: Intake and Output for Last 24 Hours 10/21/24 10/22/24 10/23/24 23:59 23:59 23:59 Intake Total 3404.55 / 3404.55 250 / 250 Output Total 500 / 500 2400 / 2400 Balance 2904.55 / 2904.55 -2150 / -2150 Lab / Micro Data 10/21/24 08:00 ROS Constitutional Constitutional: Denies headache(s) Cardiovascular Cardiovascular: Denies chest pain or dyspnea Gastrointestinal Gastrointestinal: Denies nausea or vomiting Genitourinary Genitourinary: Denies dysuria Physical Exam Const alert, oriented x3 and no apparent distress General Appearance: cooperative and comfortable Eyes PERRL and EOMs intact bilaterally Resp normal respiratory effort GI soft to palpation and non-tender Uterus Palpation: uterus fundus firm ( below umbilicus) Extremity normal to inspection and full ROM Neuro oriented x3 and CN's II-XII intact bilaterally Psych mental status grossly normal Assessment & Plan (1) (spontaneous vaginal delivery): PLAN: Plan Discharge home
--- NOTE | 2024-10-23 08:31 | PCM.DC.SUM ---
Providers Date of Admission: 10/21/24 Date of Discharge: 10/23/24 Primary Care Physician: Dania Primary Care Phys Reason For Visit: VAGINAL DELIVERY Diagnosis Discharge Diagnosis (1) (spontaneous vaginal delivery): Status: Acute Code(s): O80 - Encounter for full-term uncomplicated delivery Plan Discharge home Medications at Discharge Home Medications vits,calcium no.78-iron fumarate-folic acid 29 mg-1 mg tablet (Prenatabs FA) 1 tab PO DAILY 07/20/20 Hospital Course Operations None Procedures None Summary of Care Provided Minutes Spent on Discharge: 20 Hospital Course: Induction of labor. Uncomplicated . No complications . Bottle and breast feeding. Physical Exam Const alert and no apparent distress Narrative: Fundus firm, below umbilicus. Weight / BMI Weight Weight: 113.511 kg Body Mass Index (BMI) 42.9 ABG / Lab / Microbiology Data 10/21/24 08:00 D/C Instructions May resume sexual activity in: 6 weeks DC O2, CPAP, BIPAP Needs Home O2 Discharge instructions: No Please Follow Up With: Yessenia Ware MD When: Follow up with our office in 1-2 and 6 weeks or as needed. [phone] Meaningful Use Info Meaningful Use Meaningful Use Diagnoses (Choose all that apply): None applicable Discharge Plan Admission Admit Date/Time: 10/21/24 07:37 Primary Reason for Your Visit: induction Attending Provider: Liset Castañeda Primary Care Provider: Care ,Dania Primary Discharge Orders/Prescriptions Prescriptions: Continued Prenatabs FA 29-1 mg Tablet 1 tab PO DAILY Discontinued aspirin 81 mg tablet,delayed release (DR/EC) 81 mg PO DAILY Referrals / Follow Up: Care Physician,No Primary [Primary Care Provider] - Disposition Disposition (needs filled in before D/C Order can be placed): Home, Self Care
[2024-10-23 08:35] VITALS: BP 108/78; PULSE 80; RESP 14; TEMP 36.4; O2SAT 95
== END 2024-10-23 11:25 | disposition home or self-care (01) | DRG 807 ==
PROVIDERS: Advanced Practice Midwife; Admitting Provider Obstetrics & Gynecology; Referring Provider Obstetrics & Gynecology; Visit Provider Obstetrics & Gynecology
DX: O77.0 Labor and delivery complicated by meconium in amniotic fluid (principal); Z37.0 Single live birth; Z3A.39 39 weeks gestation of pregnancy; Z86.711 Personal history of pulmonary embolism
CPT/HCPCS: 59050; 85025; 86780; 86850; 86900; 86901; 99221; G0378